=== PATIENT | male | born 1935 | race Caucasian/White ===

== ENCOUNTER 2021-04-27 08:35 | Inpatient (IN) | payer MEDICARE, SELFPAY ==
[2021-04-27] VITALS (9 sets, daily range): BP systolic 142–173; BP diastolic 67–90; PULSE 62–112; RESP 18–34; TEMP 36.3–36.8; O2SAT 86–99; BMI 31.9
--- NOTE | ~2021-04-27 | US_ITS ---
EXAMINATION: US arterial ankle brachial ind EXAM DATE: 04/28/2021 12:21 INDICATION: decreased pulses in feet . TECHNIQUE: Segmental pressures and plethysmographic and Doppler waveforms of the brachial and lower e xtremity arteries were obtained. There is no prior study for comparison. FINDINGS: Right and left brachial artery pressures of 139 mm Hg and 132 mm Hg, respectively, are concordant (no rmal difference <= 30 mmHg). RIGHT LEG: The ankle-brachial index (ARIELLA) is 1.03 (normal >= 0.9-1). The great toe-brachial index (TBI) is 0.79 (normal >= 0.65). The lower extremity ratios, segmental pressure gradients as follows; Dorsalis pedis: 0.76 (106 mmHg). Posterior tibial: 1.03 (143 mmHg). (Normal gradients <= 20-30 mmHg between adjacent levels on the same leg or the same levels on the two legs). Arterial waveforms are biphasic proximally, monophasic from popliteal down. LEFT LEG: The ankle-brachial index (ARIELLA) is 0.64 (normal >= 0.9-1). The great toe-brachial index (TBI) is 0.59 (normal >= 0.65). The lower extremity ratios, segmental pressure gradients as follows; Dorsalis pedis: Could not obtain ( mmHg). Posterior tibial: 0.64 (89 mmHg). (Normal gradients <= 20-30 mmHg between adjacent levels on the same leg or the same levels on the two legs). Arterial waveforms are biphasic proximally, monophasic from popliteal down. IMPRESSION: 1. Right ankle-brachial index 1.03, normal. 2. Left ankle-brachial index 0.64, mild to moderately decreased. 3. Segmental pressures as above. Reviewed, dictated and finalized at location A. MACOLOGY TEACHER
--- NOTE | ~2021-04-27 | XR_ITS ---
EXAMINATION: XR chest 2V DATE: 04/27/2021 09:26 INDICATION: Congestive heart failure and hypoxia TECHNIQUE: AP and lateral views of the chest are obtained. COMPARISON: 01/09/2017 FINDINGS: Cardiomegaly is noted. There is a mild diffuse interstitial pattern. Small pleural effusion s are present. There are minimal airspace opacities of the lung bases. There is no pneumothorax. Medi an sternotomy wires and mediastinal surgical clips are seen, likely from prior coronary artery bypass grafting. A dual-lead cardiac pacemaker of the left chest wall ends with leads in expected locations . There is moderate thoracic spondylosis. IMPRESSION: 1. Cardiomegaly with mild pulmonary edema. 2. Bibasilar airspace opacities, likely atelectasis. Reviewed, dictated and finalized at location A. CTOR ERP
--- NOTE | ~2021-04-27 | US_ITS ---
EXAMINATION: US venous doppler [facility] DATE: 04/28/2021 08:37 INDICATION: Bilateral lower limb edema TECHNIQUE: Guzman scale images without and with compression and Doppler images of the bilateral lower e xtremity veins were obtained. COMPARISON: None FINDINGS: The right common femoral vein, profunda femoral vein, femoral vein, popliteal vein, peroneal trunk, p osterior tibial veins, and greater saphenous vein are patent. The left common femoral vein, profunda femoral vein, femoral vein, popliteal vein, peroneal trunk, po sterior tibial veins, and greater saphenous vein are patent. IMPRESSION: 1. Patent bilateral lower extremity veins. No evidence of deep venous thrombosis. Reviewed, dictated and finalized at location A. ER DEVELOPER IMPRESSION: 1. Patent bilateral lower extremity veins. No evidence of deep venous thrombosi s.
--- NOTE | 2021-04-27 08:59 | ECG_ITS ---
Measurements Intervals [place] Rate: 62 P: 118 OR: 271 QRS: -88 QRSD: 121 T: 75 QT: 465 QTc: 473 Interpretive Statements ELECTRONIC ATRIAL PACEMAKER VENTRICULAR PREMATURE COMPLEX RIGHT BUNDLE BRANCH BLOCK LEFT ANTERIOR FASCICULAR BLOCK POOR R WAVE PROGRESSION, CONSIDER ANTERIOR INFARCT INFERIOR INFARCT, AGE INDETERMINATE BASELINE ARTIFACT- I, II, III ,AVR, AVL ,AVF, V3-V6 ABNORMAL ECG Electronically Signed On 04-27-2021 16:26:46 [employer] SPRINKLER by Pedro Flynn D.O.
--- NOTE | 2021-04-27 08:59 | PC.NURSE ---
Pt states he hasnt taken his lasix in 2 days
[2021-04-27 09:10] LABS: Basophils Absolute Auto 0.1 K/mm3 (0.0-0.1); Basophils Percent Auto 0.9 % (0.2-1.2); Eosinophils Absolute Auto 0.1 K/mm3 (0-0.3); Hematocrit 46.6 % (42.0-52.0); Hemoglobin 14.7 g/dL (14.0-18.0); Immature Granulocyte Absolute 0.03 K/mm3 (0.00-0.031); Immature Granulocyte Percent A 0.4 % (0-0.5); Lymphocytes Absolute Auto 1.45 K/mm3 (0.9-3.2); Lymphocytes Percent Auto 18.1 % (18.3-44.2); Mean Corpuscular HGB Conc 31.5 g/dl (32-36); Mean Corpuscular Hemoglobin 30.4 pg (26-34); Mean Corpuscular Volume 96.3 fl (80-100); Mean Platelet Volume 10.3 fl (7.4-10.4); Monocytes Absolute Auto 0.6 K/mm3 (0.1-0.6); Monocytes Percent Auto 7.9 % (2.6-8.5); Neutrophils Absolute Auto 5.8 K/mm3 (1.3-6.7); Neutrophils Percent Auto 71.7 % (45.5-73.1); Platelet Count Result 219 k/mm3 (150-375); Red Blood Count 4.84 M/mm3 (4.6-6.20); Red Cell Distribution Width 14.2 % (11.5-14.5)
[2021-04-27 09:23] LABS: Alanine Aminotransferase 22 U/L (4-50); Albumin Level 4.1 g/dL (3.5-5.1); Alkaline Phosphatase 81 U/L (38-126); Anion Gap 8 mmol/L (8-16); Aspartate Amino Transferase 23 U/L (17-59); Bilirubin,Total 1.1 mg/dL (0.2-1.3); Blood Urea Nitrogen 20 mg/dL (9-20); Calcium 9.1 mg/dL (8.4-10.2); Carbon Dioxide 35 mmol/L (22-30); Chloride 97 mmol/L (98-107); Estimated CRCL calculation 76 ml/min; Estimated Glomerular Filt Rate > 60; Glucose 164 mg/dL (65-110); Potassium 3.6 mmol/L (3.4-5.0); Sodium 140 mmol/L (137-145)
[2021-04-27 09:27] LABS: INR 1.1; Prothrombin Time 14.3 Seconds (11.1-14.7)
[2021-04-27 09:28] LABS: Partial Thromboplastin Time 28.3 SECONDS (22.3-36.8)
[2021-04-27 09:35] LABS: NT Pro B Type Natriuretic Pept 2930 pg/mL (5-100); Troponin I < 0.012 ng/mL (0.000-0.034)
--- NOTE | 2021-04-27 10:09 | ED.SOB ---
HPI - SOB/Dyspnea General Chief Complaint: Shortness of Breath/Dyspnea Stated Complaint: sob, high blood sugar Time Seen by Provider: 04/27/21 09:02 History of Present Illness HPI Narrative: Patient is an 86-year-old male who presents ER with shortness of breath. Worse with any type of exertion. He reports increased edema to his lower extremities. No fevers or chills or sweats. No productive cough. Patient has history of CHF. Reports he has not been compliant with his medication over the last few days which may have worsened his symptoms. 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 Patient endorses some mild central chest discomfort that improved with oxygen administration. Related Data Home Medications Medication Instructions Recorded Confirmed aspirin 81 mg tablet,delayed 81 mg PO DAILY 05/08/20 release carvedilol 6.25 mg tablet 6.25 mg PO Q12H 05/08/20 furosemide 40 mg tablet 40 mg PO QAM 05/08/20 gabapentin 600 mg tablet 600 mg PO BID 05/08/20 metformin 500 mg tablet 500 mg PO BID 05/08/20 Allergies Allergy/AdvReac Type Severity Reaction Status Date / Time levofloxacin Allergy Mild unknown Verified 05/08/20 13:43 Review of Systems Review of Systems: All systems reviewed & are unremarkable except as noted in HPI and below Constitutional: Constitutional: Denies chills, Denies fever(s) and Reports weakness ENT: Denies nasal congestion and Denies sore throat Cardiovascular: Cardiovascular: Reports chest pain, Denies rapid heart rate and Denies radiating jaw, neck or arm pain Respiratory: Respiratory: Denies cough, Reports dyspnea and Denies wheezing Gastrointestinal: Gastrointestinal: Denies nausea and Denies vomiting [facility] Past Medical History Medical History (Updated 04/27/21 @ 13:02 by Stevan Guillory MD) CHF (congestive heart failure) COPD (chronic obstructive pulmonary disease) CVA (cerebral vascular accident) Diabetes Hypertension Surgical History Surgical History (Updated 04/27/21 @ 10:14 by Stevan Guillory MD) Hx of CABG Pacemaker Social History Social History (Updated 05/08/20 @ 13:44 by Genesis Hernandez CMA) Smoking status: Former smoker Second hand tobacco smoke exposure: No Smoking end date: 05/19/69 Alcohol intake: never Substance use: never Substance use type: does not use Exam Narrative: GENERAL: Chronically ill-appearing, well-nourished, and in no acute distress. HEAD: Normocephalic, atraumatic. EYES: PERRL and EOMI. ENT: Mucous membranes moist. CHEST: Clear to auscultation with mild crackles right base. No respiratory distress. HEART: Regular rate and rhythm. Normal peripheral pulses. ABDOMEN: Soft, nontender, nondistended. EXTREMITIES: Normal range of motion. 2+ edema. SKIN: Warm, dry, no rash. NEURO: Alert and oriented x3. PSYCH: Normal mood and affect. Course Vital Signs Vital signs: Vital Signs Temperature 98.3 F 04/27/21 08:48 Pulse Rate 112 H 04/27/21 08:48 Respiratory Rate 34 H 04/27/21 08:48 Blood Pressure 172/67 H 04/27/21 08:48 Pulse Oximetry 86 L 04/27/21 08:48 Temperature 98.3 F 04/27/21 08:48 Pulse Rate 62 04/27/21 11:12 Respiratory Rate 18 04/27/21 11:12 Blood Pressure 143/73 H 04/27/21 11:12 Pulse Oximetry 92 04/27/21 11:12 MDM - SOB/Dyspnea Lab Data Result diagrams: 04/27/21 09:01 04/27/21 09:02 Labs: Lab Results 04/27/21 04/27/21 04/27/21 Range/Units 09:01 09:01 09:02 WBC 8.0 (4.5-10.0) K/mm3 RBC 4.84 (4.6-6.20) M/mm3 Hgb 14.7 (14.0-18.0) g/dL Hct 46.6 (42.0-52.0) % MCV 96.3 (80-100) fl MCH 30.4 (26-34) pg MCHC 31.5 L (32-36) g/dl RDW 14.2 (11.5-14.5) % Plt Count 219 (150-375) k/mm3 MPV 10.3 (7.4-10.4) fl Immature Gran % (Auto) 0.4 (0-0.5) % Neut % (Auto) 71.7 (45.5-73.1) % Lymph % (Auto) 18.1 L (18.3-44.2) % [place] % (Auto) 7.9 (2.6-8.5) % Eos % (Aut
--- NOTE | 2021-04-27 15:15 | PM.IMHP ---
H&P: HPI History of Present Illness Date/Time: 04/27/21 15:15 Chief Complaint: Shortness of breath. Narrative: This is a very pleasant 86-year-old gentleman with coronary artery disease, diastolic congestive heart failure, COPD, diabetes, and several other comorbidities who presented to the emergency department earlier today for evaluation of shortness. Over the past 1 week or so he has developed increasing lower extremity edema as well as dyspnea on lesser and lesser exertion. He also endorses orthopnea and in fact he did not sleep well the last 2 nights due to shortness of breath. This morning he was feeling quite short of breath and at the same time felt discomfort in the midsternal chest region that resolved once he was started on oxygen. With further questioning he does admit that he has may be not been completely compliant with his medication over the last several days due to much activity in the home as the electricity is being rewired. On arrival to the emergency department his SpO2 was 86% on room air and he is now on L nasal cannula with improvement into the mid to upper 90s. Chest x-ray shows mild pulmonary edema and he is being admitted in this setting for diuresis. At the time my evaluation he feels much better after having received Lasix. He denies fever, chills, sweats, cold and flu symptoms, cough, sick contacts, pleuritic pain, palpitations, nausea, vomiting, and diarrhea. Review of Systems Review of Systems: Twelve systems were reviewed. No sick contacts. He is vaccinated against COVID. Denies dysphagia and concerns for aspiration. No syncope or near syncope. No history of venous thromboembolism. Recently he has been having difficulties with dribbling while voiding though he denies dysuria and feelings of incomplete bladder evacuation. Except as documented, all other systems were reviewed and are negative. [facility] Past Medical History Medical History (Updated 04/27/21 @ 23:55 by Leigha Linares PA-C) Benign prostatic hyperplasia Cerebrovascular accident No residual deficit. Chronic obstructive pulmonary disease Coronary artery disease Status post five-vessel bypass. Diabetic peripheral neuropathy Diastolic congestive heart failure Gastroesophageal reflux disease History of peptic ulcer Hypertension Osteoarthritis Paroxysmal atrial flutter Peripheral vascular disease Sick sinus syndrome Status post permanent pacemaker insertion, Biotronik. Type 2 diabetes mellitus Surgical History Surgical History (Updated 04/27/21 @ 23:50 by Leigha Linares PA-C) History of bilateral cataract extraction History of five vessel coronary artery bypass (2007) History of inguinal hernia repair History of permanent cardiac pacemaker placement Family History Family History (Updated 04/27/21 @ 23:51 by Leigha Linares PA-C) Other Congestive heart failure Diabetes mellitus Social History Social History (Updated 04/27/21 @ 23:52 by Leigha Linares PA-C) Social History: Surrogate decision maker: Ewa Aguilar, . Code status: Full code. Smoking packs per day: 1 Smoking cigarettes per day: 20.0 Years smoked: 40 Smoking pack-years: 40.00 Smoking status: Former smoker Second hand tobacco smoke exposure: No Smoking end date: 05/19/69 Alcohol intake: never Substance use: never Substance use type: does not use Additional living arrangements comments: The patient lives with his in [place]. Additional occupation/education comments: Retired. Meds Home Medications and Allergies Home Medications Medication Instructions Recorded Confirmed Type aspirin 81 mg tablet,delayed 81 mg PO DAILY 05/08/20 04/27/21 History release carvedilol 6.25 mg tablet 6.25 mg PO Q12H 05/08/20 04/27/21 History furosemide 40 mg tablet 40 mg PO QAM 05/08/20 04/27/21 History gabapentin 600 mg tablet 600 mg PO BID 05/08/20 04/27/21 History metformin 500 mg tablet 500 mg PO BID 05/08/20
--- NOTE | 2021-04-27 17:49 | ADMGEN ---
This patient, Stephanie Aguilar Jr., was admitted to IMU Room 205-01 at 1735. Patient/family oriented to hospital policies and general routines including ID bracelet, bed and alarms, visiting hours, pain management, procedures, bathroom and other care routines, personal items, smoking policy, room service/diet, and visiting hours. Information on how to activate the Rapid Response Team has been discussed. Patient/Family are encouraged to report perceived risks to care and to ask questions if they do not understand what they are told or what they should do.
[2021-04-27] MEDS: FUROSEMIDE INJ 40 MG/4 ML VIAL IV PUSH (20:59)
[2021-04-28] VITALS (14 sets, daily range): BP systolic 106–158; BP diastolic 56–68; PULSE 66–94; RESP 16–24; TEMP 36.2–37.2; O2SAT 91–97
[2021-04-28 05:07] LABS: Hematocrit 46.5 % (42.0-52.0); Hemoglobin 14.3 g/dL (14.0-18.0); Mean Corpuscular HGB Conc 30.8 g/dl (32-36); Mean Corpuscular Hemoglobin 30.8 pg (26-34); Mean Platelet Volume 10.5 fl (7.4-10.4); Platelet Count Result 197 k/mm3 (150-375); Red Blood Count 4.65 M/mm3 (4.6-6.20); Red Cell Distribution Width 14.2 % (11.5-14.5); White Blood Count 8.1 K/mm3 (4.5-10.0)
[2021-04-28 05:20] LABS: Alanine Aminotransferase 18 U/L (4-50); Albumin Level 3.6 g/dL (3.5-5.1); Alkaline Phosphatase 70 U/L (38-126); Anion Gap 7 mmol/L (8-16); Aspartate Amino Transferase 22 U/L (17-59); Bilirubin,Total 1.1 mg/dL (0.2-1.3); Blood Urea Nitrogen 19 mg/dL (9-20); Calcium 8.5 mg/dL (8.4-10.2); Carbon Dioxide 38 mmol/L (22-30); Chloride 95 mmol/L (98-107); Cholesterol 116 mg/dL (0-200); Estimated CRCL calculation 77 ml/min; Estimated Glomerular Filt Rate > 60; Glucose 119 mg/dL (65-110); HDL Direct 27 mg/dL; Magnesium 1.8 mg/dL (1.6-2.3); Potassium 3.2 mmol/L (3.4-5.0); Sodium 140 mmol/L (137-145); Triglycerides 95 mg/dL (<150)
[2021-04-28 05:31] LABS: LDL Cholesterol Direct 69 mg/dL
[2021-04-28 06:07] LABS: Thyroid Stimulating Hormone Reflex 0.463 uIU/mL (0.465-4.68)
[2021-04-28 06:37] LABS: Hemoglobin A1C 7.7 % (<5.7)
[2021-04-28 07:11] LABS: Free T4 Free Thyroxine Reflex 1.37 ng/dL (0.78-2.19)
--- NOTE | 2021-04-28 09:24 | PM.IMPN ---
Progress Note: A&P Assessment and Plan (1) Acute exacerbation of congestive heart failure: Code(s): I50.9 - Heart failure, unspecified Status: Acute Assessment and Plan: Improving Continue diuresis with KCL PO (2) Acute respiratory failure with hypoxia: Code(s): J96.01 - Acute respiratory failure with hypoxia Status: Acute Assessment and Plan: Due to CHF Wean oxygen as possible (3) Hypertension: Code(s): I10 - Essential (primary) hypertension Status: Chronic Assessment and Plan: Improving with diuresis (4) Peripheral vascular disease: Code(s): I73.9 - Peripheral vascular disease, unspecified Status: Acute Assessment and Plan: No acute issues. (5) Chronic obstructive pulmonary disease: Code(s): J44.9 - Chronic obstructive pulmonary disease, unspecified Status: Acute Assessment and Plan: Clinically stable (6) Type 2 diabetes mellitus: Code(s): E11.9 - Type 2 diabetes mellitus without complications Status: Acute Assessment and Plan: Hold metformin. SSI (7) Coronary artery disease: Code(s): I25.10 - Atherosclerotic heart disease of [place] coronary artery without angina pectoris Status: Acute Assessment and Plan: No ACS (8) Benign prostatic hyperplasia: Code(s): N40.0 - Benign prostatic hyperplasia without lower urinary tract symptoms Status: Acute Assessment and Plan: Bladder scan negative Subjective Date/time seen: 04/28/21 09:24 Interval history: 04/28 visit: sob with conversation. denied pain. Review of Systems Review of Systems: frequent urination swollen ankles pulido All systems reviewed & are unremarkable except as noted in HPI and below Exam Narrative: General: Well-developed elderly male sitting up in bed in no distress. Weight: 98.1 kg. BMI: 31.9. HEENT: PERRL, EOMI. Sclerae anicteric. Oral mucosa moist. Several missing teeth. Neck: Supple. No significant JVD. Respiratory: Respirations are even and nonlabored. He is currently on 4 L nasal cannula. Lung sounds are diminished at the bases with faint crackles Cardiovascular: IRREGULAR, NL S1-S2. Gastrointestinal: Abdomen is slightly firm and protuberant, possible bladder distension. He is not tender to palpation. Positive bowel sounds. Skin: Warm and dry. No rash or lesions on limited exam. Extremities: No cyanosis or clubbing. 1+ ANKLE EDEMA BILATERALLY Neurological: Alert. Cranial nerves 2-12 are grossly intact to inspection Psychiatric: Pleasant and cooperative with normal mood and affect. Judgment and insight intact. Objective Data Vital Signs Vital Signs: Vital Signs - 24 hr 04/27/21 11:12 04/27/21 16:53 04/27/21 17:37 Temperature 97.3 F L Pulse Rate 62 78 69 Respiratory Rate 18 18 18 Blood Pressure 143/73 H 142/68 H 158/78 H Pulse Oximetry 92 99 95 04/27/21 18:00 04/27/21 20:00 04/27/21 20:45 Temperature 97.8 F Pulse Rate 80 81 86 Respiratory Rate 19 Blood Pressure 161/70 H Pulse Oximetry 94 04/27/21 22:00 04/28/21 00:00 04/28/21 02:00 Temperature 97.9 F Pulse Rate 87 80 94 Respiratory Rate 20 Blood Pressure 107/59 L Pulse Oximetry 93 04/28/21 04:00 Temperature 98.7 F Pulse Rate 76 Respiratory Rate 18 Blood Pressure 158/64 H Pulse Oximetry 95 Intake/Output Intake/Output: Intake & Output 04/25/21 04/26/21 04/27/21 04/28/21 23:59 23:59 23:59 23:59 Intake Total 100 150 Output Total 400 Balance 100 -250 Meds/Results Medications: Active Medications Generic Name Dose Route Start Last Admin Trade Name Freq PRN Reason Stop Dose Admin Acetaminophen 650 mg 04/27/21 11:34 Acetaminophen 325 Mg Tablet PO Q4H PRN Mild Pain (1-3) or Fever Albuterol 2 puff 04/27/21 23:58 Albuterol Sulfate (*Sp) Aerosol 1 Puff INHALATION QIDRT PRN Shortness Of Breath As
[2021-04-28] MEDS: POTASSIUM CHLORIDE 20 MEQ TABLET 40 MEQ PO ×2 (10:24→13:10)
[2021-04-28] MEDS: ENOXAPARIN 40 MG/0.4 ML SYRINGE SUB-Q (10:25)
[2021-04-28] MEDS: ASPIRIN 81 MG ENTERIC TABLET PO (10:25)
[2021-04-28] MEDS: FUROSEMIDE INJ 40 MG/4 ML VIAL IV PUSH ×2 (10:26→21:38)
[2021-04-28] MEDS: GABAPENTIN 300 MG CAPSULE 600 MG PO ×2 (10:26→21:38)
[2021-04-28] MEDS: carvediloL 6.25 MG TABLET PO ×2 (10:27→21:38)
[2021-04-28 10:48] LABS: Glucose Point of Care 195 mg/dl (65-105)
[2021-04-28 12:01] LABS: Total Triiodothyronine (T3) 1.18 NG/ML (0.97-1.69)
[2021-04-28 13:00] LABS: Glucose Point of Care 147 mg/dl (65-105)
[2021-04-28 17:02] LABS: Glucose Point of Care 155 mg/dl (65-105)
[2021-04-28 20:49] LABS: Glucose Point of Care 143 mg/dl (65-105)
[2021-04-28 20:51] LABS: EDCOVIDSCREEN Negative (Negative)
[2021-04-29] VITALS (17 sets, daily range): BP systolic 110–133; BP diastolic 47–69; PULSE 64–84; RESP 20; TEMP 36.1–36.8; O2SAT 90–98
[2021-04-29 08:47] LABS: Glucose Point of Care 123 mg/dl (65-105)
[2021-04-29] MEDS: FUROSEMIDE INJ 40 MG/4 ML VIAL IV PUSH ×2 (09:10→21:51)
[2021-04-29] MEDS: ENOXAPARIN 40 MG/0.4 ML SYRINGE SUB-Q (09:10)
[2021-04-29] MEDS: carvediloL 6.25 MG TABLET PO ×2 (09:11→21:51)
[2021-04-29] MEDS: ASPIRIN 81 MG ENTERIC TABLET PO (09:11)
[2021-04-29] MEDS: GABAPENTIN 300 MG CAPSULE 600 MG PO ×2 (09:11→21:51)
[2021-04-29 09:15] LABS: Anion Gap 6 mmol/L (8-16); Blood Urea Nitrogen 23 mg/dL (9-20); Calcium 8.7 mg/dL (8.4-10.2); Carbon Dioxide 38 mmol/L (22-30); Chloride 93 mmol/L (98-107); Estimated CRCL calculation 77 ml/min; Estimated Glomerular Filt Rate > 60; Glucose 135 mg/dL (65-110); Potassium 3.8 mmol/L (3.4-5.0); Sodium 137 mmol/L (137-145)
--- NOTE | 2021-04-29 10:32 | PM.IMPN ---
Progress Note: A&P Assessment and Plan (1) Acute exacerbation of congestive heart failure: Code(s): I50.9 - Heart failure, unspecified Status: Acute Assessment and Plan: Improving Continue diuresis (2) Acute respiratory failure with hypoxia: Code(s): J96.01 - Acute respiratory failure with hypoxia Status: Acute Assessment and Plan: Due to CHF Wean oxygen as possible (3) Hypertension: Code(s): I10 - Essential (primary) hypertension Status: Chronic Assessment and Plan: Improved with diuresis 04/29 110/47 (4) Peripheral vascular disease: Code(s): I73.9 - Peripheral vascular disease, unspecified Status: Acute Assessment and Plan: No acute issues. (5) Chronic obstructive pulmonary disease: Code(s): J44.9 - Chronic obstructive pulmonary disease, unspecified Status: Acute Assessment and Plan: Clinically stable (6) Type 2 diabetes mellitus: Code(s): E11.9 - Type 2 diabetes mellitus without complications Status: Acute Assessment and Plan: Hold metformin. SSI 04/29 BS reviewed and stable (7) Coronary artery disease: Code(s): I25.10 - Atherosclerotic heart disease of [place] coronary artery without angina pectoris Status: Acute Assessment and Plan: No ACS (8) Benign prostatic hyperplasia: Code(s): N40.0 - Benign prostatic hyperplasia without lower urinary tract symptoms Status: Acute Assessment and Plan: Bladder scan negative Subjective Date/time seen: 04/29/21 10:32 Interval history: 04/29 visit: Less sob with conversation. Tired. Review of Systems Review of Systems: All systems reviewed & are unremarkable except as noted in HPI and below Exam Narrative: General: Well-developed elderly male sitting up in bed in no distress. Weight: 98.1 kg. BMI: 31.9. HEENT: PERRL, EOMI. Sclerae anicteric. Oral mucosa moist. Several missing teeth. Neck: Supple. No significant JVD. Respiratory: Respirations are even and nonlabored. He is currently on 4 L nasal cannula. Lung sounds are diminished at the bases with faint crackles Cardiovascular: IRREGULAR, NL S1-S2. Gastrointestinal: Abdomen is slightly firm and protuberant, possible bladder distension. He is not tender to palpation. Positive bowel sounds. Skin: Warm and dry. No rash or lesions on limited exam. Extremities: No cyanosis or clubbing. 1+ ANKLE EDEMA BILATERALLY Neurological: Alert. Cranial nerves 2-12 are grossly intact to inspection Psychiatric: Pleasant and cooperative with normal mood and affect. Judgment and insight intact. Objective Data Vital Signs Vital Signs: Vital Signs - 24 hr 04/28/21 12:00 04/28/21 14:00 04/28/21 16:00 Temperature 97.7 F 97.6 F Pulse Rate 79 66 68 Respiratory Rate 24 H 18 Blood Pressure 112/62 109/57 L Pulse Oximetry 93 91 04/28/21 18:00 04/28/21 20:00 04/28/21 21:38 Temperature 97.2 F L Pulse Rate 84 78 81 Respiratory Rate 20 Blood Pressure 106/56 L Pulse Oximetry 94 04/28/21 22:00 04/28/21 23:52 04/29/21 00:00 Temperature 97.4 F L Pulse Rate 85 74 75 Respiratory Rate 20 Blood Pressure 126/68 Pulse Oximetry 97 97 04/29/21 02:00 04/29/21 03:50 04/29/21 03:57 Temperature 97.8 F Pulse Rate 66 74 Respiratory Rate 20 Blood Pressure 112/59 L Pulse Oximetry 97 97 04/29/21 04:00 04/29/21 06:00 04/29/21 08:58 Temperature 97.0 F L Pulse Rate 71 79 72 Respiratory Rate 20 Blood Pressure 129/58 L Pulse Oximetry 90 04/29/21 09:11 Temperature Pulse Rate 84 Respiratory Rate Blood Pressure Pulse Oximetry Intake/Output Intake/Output: Intake & Output 04/26/21 04/27/21 04/28/21 04/29/21 23:59 23:59 23:59 23:59 Intake Total 100 1315 Output Total 400 1050 Balance 100 915 -1050 Meds/Results Medications: Active Medications Generic Name Dose Route Start Las
[2021-04-29 12:32] LABS: Glucose Point of Care 227 mg/dl (65-105)
[2021-04-29] MEDS: INSULIN ASPART (*BKC) 100 UNITS/ML SUB-Q (13:00)
[2021-04-29 17:52] LABS: Glucose Point of Care 123 mg/dl (65-105)
[2021-04-29 20:27] LABS: Glucose Point of Care 140 mg/dl (65-105)
[2021-04-30] VITALS (7 sets, daily range): BP systolic 90–110; BP diastolic 43–45; PULSE 61–76; RESP 16–20; TEMP 36.2–36.5; O2SAT 95–98
[2021-04-30 05:57] LABS: Anion Gap 6 mmol/L (8-16); Blood Urea Nitrogen 24 mg/dL (9-20); Calcium 8.4 mg/dL (8.4-10.2); Carbon Dioxide 38 mmol/L (22-30); Chloride 90 mmol/L (98-107); Estimated CRCL calculation 77 ml/min; Estimated Glomerular Filt Rate > 60; Glucose 131 mg/dL (65-110); Potassium 3.8 mmol/L (3.4-5.0); Sodium 134 mmol/L (137-145)
[2021-04-30 08:44] LABS: Glucose Point of Care 128 mg/dl (65-105)
[2021-04-30 09:16] LABS: Alanine Aminotransferase 14 U/L (4-50); Albumin Level 3.3 g/dL (3.5-5.1); Alkaline Phosphatase 59 U/L (38-126); Anion Gap 7 mmol/L (8-16); Aspartate Amino Transferase 26 U/L (17-59); Bilirubin,Total 0.9 mg/dL (0.2-1.3); Blood Urea Nitrogen 25 mg/dL (9-20); Calcium 8.5 mg/dL (8.4-10.2); Carbon Dioxide 37 mmol/L (22-30); Chloride 92 mmol/L (98-107); Estimated CRCL calculation 68 ml/min; Estimated Glomerular Filt Rate > 60; Glucose 133 mg/dL (65-110); Potassium 3.8 mmol/L (3.4-5.0); Sodium 136 mmol/L (137-145)
[2021-04-30] MEDS: ASPIRIN 81 MG ENTERIC TABLET PO (09:46)
[2021-04-30] MEDS: carvediloL 6.25 MG TABLET PO ×2 (09:46→20:10)
[2021-04-30] MEDS: ENOXAPARIN 40 MG/0.4 ML SYRINGE SUB-Q (09:48)
[2021-04-30] MEDS: GABAPENTIN 300 MG CAPSULE 600 MG PO ×2 (09:48→20:10)
[2021-04-30 10:05] LABS: Basophils Absolute Auto 0.1 K/mm3 (0.0-0.1); Basophils Percent Auto 1.2 % (0.2-1.2); Eosinophils Absolute Auto 0.1 K/mm3 (0-0.3); Eosinophils Percent Auto 1.9 % (0-4.4); Hematocrit 45.9 % (42.0-52.0); Hemoglobin 13.9 g/dL (14.0-18.0); Immature Granulocyte Absolute 0.01 K/mm3 (0.00-0.031); Immature Granulocyte Percent A 0.1 % (0-0.5); Lymphocytes Absolute Auto 2.09 K/mm3 (0.9-3.2); Mean Corpuscular HGB Conc 30.3 g/dl (32-36); Mean Corpuscular Hemoglobin 30.3 pg (26-34); Mean Corpuscular Volume 100.2 fl (80-100); Mean Platelet Volume 10.9 fl (7.4-10.4); Monocytes Absolute Auto 0.7 K/mm3 (0.1-0.6); Monocytes Percent Auto 10.1 % (2.6-8.5); Neutrophils Absolute Auto 3.8 K/mm3 (1.3-6.7); Neutrophils Percent Auto 55.7 % (45.5-73.1); Platelet Count Result 203 k/mm3 (150-375); Red Blood Count 4.58 M/mm3 (4.6-6.20); Red Cell Distribution Width 13.8 % (11.5-14.5); White Blood Count 6.7 K/mm3 (4.5-10.0)
[2021-04-30] MEDS: FUROSEMIDE INJ 40 MG/4 ML VIAL IV PUSH (11:13)
[2021-04-30 13:14] LABS: Glucose Point of Care 177 mg/dl (65-105)
--- NOTE | 2021-04-30 14:00 | PM.IMPN ---
Progress Note: A&P Assessment and Plan (1) Acute exacerbation of congestive heart failure: Code(s): I50.9 - Heart failure, unspecified Status: Acute Assessment and Plan: Improving Continue diuresis Change IV lasix to PO Probably can DC home tomorrow (2) Acute respiratory failure with hypoxia: Code(s): J96.01 - Acute respiratory failure with hypoxia Status: Acute Assessment and Plan: Due to CHF Wean oxygen as possible O2 off at this time Continue to trend saturations (3) Hypertension: Code(s): I10 - Essential (primary) hypertension Status: Chronic Assessment and Plan: Improved with diuresis 04/30 90/45 Seems low at this time Continue trend (4) Peripheral vascular disease: Code(s): I73.9 - Peripheral vascular disease, unspecified Status: Acute Assessment and Plan: No acute issues. (5) Chronic obstructive pulmonary disease: Code(s): J44.9 - Chronic obstructive pulmonary disease, unspecified Status: Acute Assessment and Plan: Clinically stable Supplemental oxygen if needed (6) Type 2 diabetes mellitus: Code(s): E11.9 - Type 2 diabetes mellitus without complications Status: Acute Assessment and Plan: Hold metformin. SSI 04/30 BS reviewed and stable (7) Coronary artery disease: Code(s): I25.10 - Atherosclerotic heart disease of [place] coronary artery without angina pectoris Status: Acute Assessment and Plan: No ACS (8) Benign prostatic hyperplasia: Code(s): N40.0 - Benign prostatic hyperplasia without lower urinary tract symptoms Status: Acute Assessment and Plan: Bladder scan negative Time Spent With Patient Time with patient: 25 - 35 minutes Subjective Date/time seen: 04/30/21 14:00 Interval history: Date/Time: 04/27/21 15:15 Narrative: This is a very pleasant 86-year-old gentleman with coronary artery disease, diastolic congestive heart failure, COPD, diabetes, and several other comorbidities who presented to the emergency department earlier today for evaluation of shortness. Over the past 1 week or so he has developed increasing lower extremity edema as well as dyspnea on lesser and lesser exertion. He also endorses orthopnea and in fact he did not sleep well the last 2 nights due to shortness of breath. This morning he was feeling quite short of breath and at the same time felt discomfort in the midsternal chest region that resolved once he was started on oxygen. With further questioning he does admit that he has may be not been completely compliant with his medication over the last several days due to much activity in the home as the electricity is being rewired. On arrival to the emergency department his SpO2 was 86% on room air and he is now on L nasal cannula with improvement into the mid to upper 90s. Chest x-ray shows mild pulmonary edema and he is being admitted in this setting for diuresis. At the time my evaluation he feels much better after having received Lasix. He denies fever, chills, sweats, cold and flu symptoms, cough, sick contacts, pleuritic pain, palpitations, nausea, vomiting, and diarrhea. Date/Time 04/30/21 14:00 Patient is sitting in the chair talking to his electric organ checker. He stated that he is feeling ok. He does have a cough. He is able to walk and is eating as much as he can. He denies SOB and O2 at home. He is able to go to the bathroom, without feeling short of breath. He denies chest pain. He is ready to be moved out of the IMU. Will change him to PO lasix at this time. Review of Systems Review of Systems: All systems reviewed & are unremarkable except as noted in HPI and below Exam Const: General: cooperative, healthy appearing, no acute distress, well developed, alert and awake Nutritional Appearance: well nourished Orientation/consciousness: oriented to person, oriented to
[2021-04-30 15:12] LABS: Glucose Point of Care 231 mg/dl (65-105)
[2021-04-30] MEDS: FUROSEMIDE 40 MG TABLET PO (17:12)
[2021-04-30 17:16] LABS: Glucose Point of Care 145 mg/dl (65-105)
[2021-04-30 20:40] LABS: Glucose Point of Care 140 mg/dl (65-105)
[2021-05-01] VITALS (7 sets, daily range): BP systolic 106–141; BP diastolic 46–70; PULSE 59–115; RESP 16–18; TEMP 36–36.7; O2SAT 90–95
[2021-05-01 05:18] LABS: Basophils Absolute Auto 0.1 K/mm3 (0.0-0.1); Basophils Percent Auto 1.1 % (0.2-1.2); Eosinophils Absolute Auto 0.1 K/mm3 (0-0.3); Eosinophils Percent Auto 1.7 % (0-4.4); Hemoglobin 13.5 g/dL (14.0-18.0); Immature Granulocyte Absolute 0.01 K/mm3 (0.00-0.031); Immature Granulocyte Percent A 0.1 % (0-0.5); Lymphocytes Absolute Auto 1.78 K/mm3 (0.9-3.2); Lymphocytes Percent Auto 25.5 % (18.3-44.2); Mean Corpuscular HGB Conc 30.7 g/dl (32-36); Mean Corpuscular Hemoglobin 30.1 pg (26-34); Mean Corpuscular Volume 98.2 fl (80-100); Mean Platelet Volume 10.7 fl (7.4-10.4); Monocytes Absolute Auto 0.7 K/mm3 (0.1-0.6); Monocytes Percent Auto 10.3 % (2.6-8.5); Neutrophils Absolute Auto 4.3 K/mm3 (1.3-6.7); Neutrophils Percent Auto 61.3 % (45.5-73.1); Platelet Count Result 206 k/mm3 (150-375); Red Blood Count 4.48 M/mm3 (4.6-6.20); Red Cell Distribution Width 13.9 % (11.5-14.5)
[2021-05-01 05:34] LABS: Alanine Aminotransferase 14 U/L (4-50); Albumin Level 3.4 g/dL (3.5-5.1); Alkaline Phosphatase 66 U/L (38-126); Anion Gap 4 mmol/L (8-16); Aspartate Amino Transferase 21 U/L (17-59); Bilirubin,Total 0.6 mg/dL (0.2-1.3); Blood Urea Nitrogen 26 mg/dL (9-20); Calcium 8.7 mg/dL (8.4-10.2); Carbon Dioxide 39 mmol/L (22-30); Chloride 91 mmol/L (98-107); Estimated CRCL calculation 68 ml/min; Estimated Glomerular Filt Rate > 60; Glucose 182 mg/dL (65-110); Magnesium 1.9 mg/dL (1.6-2.3); Potassium 3.5 mmol/L (3.4-5.0); Sodium 134 mmol/L (137-145)
--- NOTE | 2021-05-01 07:00 | PM.IMPN ---
Progress Note: A&P Assessment and Plan (1) Acute exacerbation of congestive heart failure: Code(s): I50.9 - Heart failure, unspecified Status: Acute Assessment and Plan: Improving Continue diuresis Change IV lasix to PO Still on oxygen. On room air now will probably need a home o2 eval (2) Acute respiratory failure with hypoxia: Code(s): J96.01 - Acute respiratory failure with hypoxia Status: Acute Assessment and Plan: Due to CHF Wean oxygen as possible O2 off at this time Continue to trend saturations (3) Hypertension: Code(s): I10 - Essential (primary) hypertension Status: Chronic Assessment and Plan: Improved with diuresis 119/70 currently stable and maintaining Continue trend (4) Peripheral vascular disease: Code(s): I73.9 - Peripheral vascular disease, unspecified Status: Acute Assessment and Plan: No acute issues. (5) Chronic obstructive pulmonary disease: Code(s): J44.9 - Chronic obstructive pulmonary disease, unspecified Status: Acute Assessment and Plan: Clinically stable Supplemental oxygen if needed Albuterol inhaler (6) Type 2 diabetes mellitus: Code(s): E11.9 - Type 2 diabetes mellitus without complications Status: Acute Assessment and Plan: Glucose 182 today Hold metformin. SSI 04/30 BS reviewed and stable (7) Coronary artery disease: Code(s): I25.10 - Atherosclerotic heart disease of [place] coronary artery without angina pectoris Status: Acute Assessment and Plan: No ACS (8) Benign prostatic hyperplasia: Code(s): N40.0 - Benign prostatic hyperplasia without lower urinary tract symptoms Status: Acute Assessment and Plan: Bladder scan negative Time Spent With Patient Time with patient: Greater than 35 minutes Subjective Date/time seen: 05/01/21 0700 Interval history: Date/Time: 04/27/21 15:15 Narrative: This is a very pleasant 86-year-old gentleman with coronary artery disease, diastolic congestive heart failure, COPD, diabetes, and several other comorbidities who presented to the emergency department earlier today for evaluation of shortness. Over the past 1 week or so he has developed increasing lower extremity edema as well as dyspnea on lesser and lesser exertion. He also endorses orthopnea and in fact he did not sleep well the last 2 nights due to shortness of breath. This morning he was feeling quite short of breath and at the same time felt discomfort in the midsternal chest region that resolved once he was started on oxygen. With further questioning he does admit that he has may be not been completely compliant with his medication over the last several days due to much activity in the home as the electricity is being rewired. On arrival to the emergency department his SpO2 was 86% on room air and he is now on L nasal cannula with improvement into the mid to upper 90s. Chest x-ray shows mild pulmonary edema and he is being admitted in this setting for diuresis. At the time my evaluation he feels much better after having received Lasix. He denies fever, chills, sweats, cold and flu symptoms, cough, sick contacts, pleuritic pain, palpitations, nausea, vomiting, and diarrhea. Date/Time 04/30/21 14:00 Patient is sitting in the chair talking to his master in chancery. He stated that he is feeling ok. He does have a cough. He is able to walk and is eating as much as he can. He denies SOB and O2 at home. He is able to go to the bathroom, without feeling short of breath. He denies chest pain. He is ready to be moved out of the IMU. Will change him to PO lasix at this time. Date/Time 05/01/21 0700 Patient is feeling better. He is on oxygen, when I ask him is on oxygen he just said he feels like it is hard to breathe whenever they take it off. He stated that it that is really his only problem he has ri
[2021-05-01] MEDS: ASPIRIN 81 MG ENTERIC TABLET PO (08:46)
[2021-05-01] MEDS: GABAPENTIN 300 MG CAPSULE 600 MG PO ×2 (08:46→20:41)
[2021-05-01] MEDS: ENOXAPARIN 40 MG/0.4 ML SYRINGE SUB-Q (08:46)
[2021-05-01] MEDS: carvediloL 6.25 MG TABLET PO ×2 (08:46→20:41)
[2021-05-01 08:51] LABS: Glucose Point of Care 151 mg/dl (65-105)
[2021-05-01] MEDS: FUROSEMIDE 40 MG TABLET PO ×2 (09:37→17:21)
--- NOTE | 2021-05-01 10:31 | PC.NURSE ---
patient transferred to room 332-1
--- NOTE | 2021-05-01 11:28 | PC.NURSE ---
This patient, Stephanie Aguilar Jr., was transferred to [facility] on 05/01/21 at 1035. Personal belongings sent with patient. Report given to Shweta CORMIER. Appropriate documentation sent with patient.
[2021-05-01] MEDS: INSULIN ASPART (*BKC) 100 UNITS/ML SUB-Q (12:40)
[2021-05-01 12:49] LABS: Glucose Point of Care 221 mg/dl (65-105)
[2021-05-01 16:28] LABS: Glucose Point of Care 179 mg/dl (65-105)
[2021-05-01 20:55] LABS: Glucose Point of Care 175 mg/dl (65-105)
[2021-05-02 06:00] VITALS: BP 137/51; PULSE 60; RESP 18; TEMP 36.8; O2SAT 93
[2021-05-02 08:20] LABS: Glucose Point of Care 172 mg/dl (65-105)
[2021-05-02 08:53] VITALS: PULSE 64
[2021-05-02] MEDS: FUROSEMIDE 40 MG TABLET PO (08:53)
[2021-05-02] MEDS: ASPIRIN 81 MG ENTERIC TABLET PO (08:53)
[2021-05-02] MEDS: carvediloL 6.25 MG TABLET PO (08:53)
[2021-05-02] MEDS: ENOXAPARIN 40 MG/0.4 ML SYRINGE SUB-Q (08:53)
[2021-05-02] MEDS: GABAPENTIN 300 MG CAPSULE 600 MG PO (08:53)
[2021-05-02 11:37] LABS: Glucose Point of Care 205 mg/dl (65-105)
[2021-05-02] MEDS: INSULIN ASPART (*BKC) 100 UNITS/ML SUB-Q (12:24)
--- NOTE | 2021-05-02 13:40 | PM.DS ---
DS: Admitting Diagnosis Discharge Date date of service 05/02/2021 at 1:40 p.m. Admitting Diagnosis CHF exacerbation DS: Discharge Diagnosis Discharge Diagnosis (1) Acute exacerbation of congestive heart failure: Code(s): I50.9 - Heart failure, unspecified Status: Acute Assessment and Plan: Improving Continue diuresis Change IV lasix to PO Still on oxygen. On room air now will probably need a home o2 eval (2) Acute respiratory failure with hypoxia: Code(s): J96.01 - Acute respiratory failure with hypoxia Status: Acute Assessment and Plan: Due to CHF Wean oxygen as possible O2 off at this time Continue to trend saturations (3) Hypertension: Code(s): I10 - Essential (primary) hypertension Status: Chronic Assessment and Plan: Improved with diuresis 119/70 currently stable and maintaining Continue trend (4) Peripheral vascular disease: Code(s): I73.9 - Peripheral vascular disease, unspecified Status: Acute Assessment and Plan: No acute issues. (5) Chronic obstructive pulmonary disease: Code(s): J44.9 - Chronic obstructive pulmonary disease, unspecified Status: Acute Assessment and Plan: Clinically stable Supplemental oxygen if needed Albuterol inhaler (6) Type 2 diabetes mellitus: Code(s): E11.9 - Type 2 diabetes mellitus without complications Status: Acute Assessment and Plan: Glucose 182 today Hold metformin. SSI 04/30 BS reviewed and stable (7) Coronary artery disease: Code(s): I25.10 - Atherosclerotic heart disease of [place] coronary artery without angina pectoris Status: Acute Assessment and Plan: No ACS (8) Benign prostatic hyperplasia: Code(s): N40.0 - Benign prostatic hyperplasia without lower urinary tract symptoms Status: Acute Assessment and Plan: Bladder scan negative DS: Summary Hospital Course Hospital Course: patient is a 86-year-old male with a past medical history of CHF, hypertension, BPH who presented to the ED with complaints of increased lower extremity edema and dyspnea on exertion. Patient has been treated with IV Lasix twice a day. Patient was also noted to be hypoxic and was treated with oxygen. Patient has been off oxygen for the last 24 hours and has been stable. current I&Os show that patient is euvolemic. Patient feels good this time any sitting in chair eating Lunch. BNP upon admission was 2930. Chest x-ray showed cardiomegaly with mild pulmonary edema with bibasilar airspace opacities. Venous Doppler are negative for bilateral lower extremity deep vein thrombosis. EKG shows electronic atrial paced rhythm. Labs have been stable throughout the visit. Vital signs have also been stable. He is also been able to walk and work with PT. He feels great today and is ready to go home. He denies chest pain, shortness of breath, nausea, vomiting, abdominal pain, weakness, sweats, fevers, and chills. Status at Discharge Functional status at discharge: uses cane/walker Overall status at discharge: patient is progressing back to baseline Time Spent with Patient Time attestation: Total time spent providing and/or coordinating discharge services:48 minutes Time spent: Greater than 30 minutes Exam Const: General: cooperative, healthy appearing, no acute distress, well developed, alert and awake Nutritional Appearance: well nourished Orientation/consciousness: oriented to person, oriented to place, oriented to time and patient oriented x3 Limitations: no limitations HENMT: Head: normal to inspection Ears: hearing grossly normal bilaterally General nose exam: Normal external nose present Mouth: Yes Normal oral and palatal mucosa present, Yes lip normal and Yes tongue normal Teeth and gingiva: abnormal tooth and associated gingiva and poor dentition Eyes: General: appearance n
[2021-05-02 14:00] VITALS: BP 130/54; PULSE 63; RESP 16; TEMP 36.9; O2SAT 91
== END 2021-05-02 15:00 | disposition home or self-care (01) | DRG 291 ==
LOC: ANHED 09:31 → ANHICU 12:58 → ANHIMU 16:51 → ANH3MEDSUR 05-01 15:17 → ANHIMU 05-03 13:28
PROVIDERS: Internal Medicine; Physician Assistant; Admitting Provider Internal Medicine; Emergency Provider Emergency Medicine; PCP Family Medicine Adolescent Medicine; Visit Provider Nurse Practitioner
DX: I11.0 Hypertensive heart disease with heart failure (principal); I50.33 Acute on chronic diastolic (congestive) heart failure; J96.01 Acute respiratory failure with hypoxia; Z20.822 Contact with and (suspected) exposure to COVID-19; I25.10 Atherosclerotic heart disease of native coronary artery without angina pectoris; J44.9 Chronic obstructive pulmonary disease, unspecified; E11.42 Type 2 diabetes mellitus with diabetic polyneuropathy; E11.51 Type 2 diabetes mellitus with diabetic peripheral angiopathy without gangrene; N40.0 Benign prostatic hyperplasia without lower urinary tract symptoms; Z79.82 Long term (current) use of aspirin; Z79.84 Long term (current) use of oral hypoglycemic drugs; Z87.891 Personal history of nicotine dependence; Z91.14 Patient's other noncompliance with medication regimen; Z95.0 Presence of cardiac pacemaker; Z95.1 Presence of aortocoronary bypass graft; Z98.42 Cataract extraction status, left eye; Z98.41 Cataract extraction status, right eye
CPT/HCPCS: 36415; 71046; 80048; 80053; 80061; 82948; 83036; 83735; 83880; 84439; 84443; 84480; 84484; 85025; 85027; 85610; 85730; 87426; 93005; 93922; 93970; 96372; 96374; 96376; 99285; A9270; C9803; G0378; J1650; J1815; J1940

== ENCOUNTER 2021-11-26 12:11 | Outpatient (CLI) | payer MEDICARE, SELFPAY ==
--- NOTE | 2021-12-03 13:29 | WPDPFTINT ---
PFT Procedure Performed PFT Procedure Performed Plethysmography (Lung Vol) Diffusing Cap (DLCO) Flow Vol Loop Spirometry w/o Bronchodil PFT Interpretation DOS: 11/26/2021 REQUESTING: Dr Renee REASON FOR TESTING: Emphysema PULMONARY FUNCTION TESTS Results are reliable and reproducible. Spirometry: Pre bronchodilator FEV1 is 64% predicted, 1.64 L, decreased. Pre bronchodilator FVC is 54% predicted, 1.9 L, decreased. The FEV1/ FVC is 86%, normal. The FEF 25-75 is 109% normal. No bronchodilator was given. Lung volumes: Total lung capacity is 71% mildly decreased consistent with restrictive pattern. This is 4.74 L. the slow vital capacity is 77% which is higher than the forced vital capacity. This demonstrates dynamic airway obstruction. FRC is 77%, 2.862 L, within the normal range. Residual volume is 77%, 2.05 L, normal. RV/TLC is 43% elevated consistent with mild air trapping. Airway resistance is 234%, increased. Diffusion: DLCO is 47%. DLCO/VA is 88% normal. Flow volume loop: There is a mild notched pattern in the inspiratory limb that is present on all three of the flow volume loops. This is nonspecific finding, suggests limitation of flow during inspiration. IMPRESSION: This study shows mild restriction with decreased diffusion. There is also suggestion of obstruction based on the slow vital capacity being higher than the forced vital capacity and mild air trapping. There is a moderate diffusion defect that corrects for alveolar volume. The combination of restriction and low DLCO can be seen in ILD and pneumonitis. The combination of restriction, low DLCO and obstruction can be seen in heart failure, sarcoidosis and asbestosis. This study is not consistent with emphysema, however restriction can mask obstruction. Randa Kelley MD
== END 2021-11-26 12:12 | disposition home or self-care (01) ==
LOC: ANHPFT 12:14
PROVIDERS: PCP Family Medicine Adolescent Medicine; Visit Provider Family Medicine Adolescent Medicine
DX: J43.9 Emphysema, unspecified (principal)
CPT/HCPCS: 94375; 94726; 94729

== ENCOUNTER 2022-06-08 05:12 | Inpatient (IN) | payer MEDICARE, SELFPAY ==
[2022-06-08] VITALS (15 sets, daily range): BP systolic 91–161; BP diastolic 48–82; PULSE 62–86; RESP 14–30; TEMP 36.4–36.8; O2SAT 84–98
--- NOTE | ~2022-06-08 | US_ITS ---
EXAMINATION: US retroperitoneal duplex ltd DATE: 06/10/2022 10:30 INDICATION: Renal artery stenosis TECHNIQUE: Multiple grayscale, color Doppler, and pulsed Doppler images of the kidneys and renal penelope mira were obtained. COMPARISON: CTA dated 01/26/2019 FINDINGS: The aorta peak systolic velocity is 101 cm/s. The right renal artery peak systolic velocity is 110 cm /s in the mid segment, and 119 cm/s in the distal segment. The proximal portion of the right renal ar sabina in the midportion of the left renal artery are not clearly visualized. The left renal artery pea k systolic velocity is 48 cm/s in the proximal segment and 73 cm/s in the distal segment. There are b risk systolic upstrokes and of the distal left and right renal arteries IMPRESSION: 1. No Doppler evidence of renal artery stenosis. The proximal right renal artery and mid left renal artery were unable to be visualized. Reviewed, dictated and finalized at location B. RAFT MAINTENANCE INSTRUCTOR IMPRESSION: 1. No Doppler evidence of renal artery stenosis. The proximal right renal penelope ry and mid left renal artery were unable to be visualized.
--- NOTE | ~2022-06-08 | US_ITS ---
EXAMINATION: US venous doppler [facility] DATE: 06/09/2022 11:59 INDICATION: Lower limb pain. TECHNIQUE: Grayscale ultrasound images without and with compression and Doppler ultrasound images of the bilateral lower extremity veins were obtained. COMPARISON: Ultrasound 04/28/2021 FINDINGS: The visualized portions of right common femoral vein, profunda (deep) femoral vein, femoral vein, pop liteal vein, peroneal veins, posterior tibial veins, and greater saphenous vein outflow are patent. The visualized portions of left common femoral vein, profunda femoral vein, femoral vein, popliteal v ein, peroneal veins, posterior tibial veins, and greater saphenous vein outflow are patent. IMPRESSION: 1. No deep venous thrombosis. Reviewed, dictated and finalized at location A. ARCH QUALITY ASSURANCE SPECIALIST
--- NOTE | ~2022-06-08 | XR_ITS ---
EXAMINATION: XR chest 2V DATE: 06/08/2022 07:03 INDICATION: Shortness of breath. TECHNIQUE: Frontal and lateral views of the chest were obtained on 3 radiographs. COMPARISON: Chest 2 views 04/27/2021, chest CT 01/26/2019 FINDINGS: There are lucencies in the lungs, consistent with emphysema. A calcified right lung nodule is consistent with old granulomatous disease. There is a diffuse interstitial pattern in the lungs, c onsistent with mild pulmonary edema. No pleural effusion or pneumothorax. Cardiomegaly is noted. Medi an sternotomy wires and mediastinal surgical clips are seen, likely from prior coronary artery bypass grafting. There is a left chest wall pacer with leads in the right atrium and right ventricle. IMPRESSION: 1. Mild pulmonary edema. 2. Emphysema. 3. Cardiomegaly. Reviewed, dictated and finalized at location A. SURGEON
--- NOTE | ~2022-06-08 | XR_ITS ---
EXAMINATION: XR wrist LT 2V DATE: 06/14/2022 14:40 INDICATION: Left wrist pain. TECHNIQUE: 2 views of left wrist were obtained. COMPARISON: None. FINDINGS: Bone alignment is normal. No fracture. There is diffuse osteopenia. There is mild osteoarth ritis of triscaphe joint and severe osteoarthritis of first carpometacarpal joint. Partially visualiz ed is osteoarthritis of many of the interphalangeal joints. IMPRESSION: 1. Polyarticular osteoarthritis. Reviewed, dictated and finalized at location A. CLUB ATTENDANT
--- NOTE | ~2022-06-08 | US_ITS ---
EXAMINATION: US renal BI DATE: 06/09/2022 11:59 INDICATION: Renal artery stenosis. TECHNIQUE: Multiple ultrasound grayscale images of the kidneys were obtained. COMPARISON: CT abdomen and pelvis 01/26/2019 FINDINGS: The right kidney measures 9.7 x 5.2 x 5.0 cm. The left kidney measures 10.9 x 5.5 x 5.5 cm. There is cortical thinning of the kidneys. The kidneys demonstrate normal parenchymal echogenicity. There is a 1.7 cm cyst in right kidney. There is no hydronephrosis. The bladder is normal. The prostate is enla rged. IMPRESSION: 1. Cortical thinning of the kidneys. No hydronephrosis. Reviewed, dictated and finalized at location A. IRON WORKER
--- NOTE | ~2022-06-08 | XR_ITS ---
EXAMINATION: XR chest 1V portable DATE: 06/13/2022 11:45 INDICATION: Shortness of breath. TECHNIQUE: A single frontal view of the chest was obtained. COMPARISON: Chest single view 06/09/2022 FINDINGS: There are lucencies in the lungs, consistent with emphysema. There is a diffuse interstitia l pattern in the lungs. No pleural effusion or pneumothorax. Cardiomegaly is noted. Median sternotomy wires and mediastinal surgical clips are seen, likely from prior coronary artery bypass grafting. Th ere is a left chest wall pacer with leads in the right atrium and right ventricle. IMPRESSION: 1. Diffuse lung disease with slight improvement, likely mild pulmonary edema superimposed on emphysem a. 2. Cardiomegaly. Reviewed, dictated and finalized at location A. IL MAKER IMPRESSION: 1. Diffuse lung disease with slight improvement, likely mild pulmonary edema [place] perimposed on emphysema. 2. Cardiomegaly.
--- NOTE | ~2022-06-08 | XR_ITS ---
EXAMINATION: XR elbow RT min 3V INDICATION: Right elbow pain TECHNIQUE: Three views of the right elbow are obtained. COMPARISON: None available FINDINGS: Bone alignment is normal. The bones are osteopenic which limits the sensitivity for fractur e. There is a questionable small fracture along the lateral articular surface of the radial head. The re is moderate osteoarthritis. A calcified loose body is seen in the elbow joint. IMPRESSION: 1. Possible small fracture along the lateral articular surface of the radial head. Consider CT. Reviewed, dictated and finalized at location F. RSTITCH ELASTIC ATTACHER IMPRESSION: 1. Possible small fracture along the lateral articular surface of the radial he ad. Consider CT.
--- NOTE | ~2022-06-08 | XR_ITS ---
EXAMINATION: XR chest 1V portable DATE: 06/09/2022 08:28 INDICATION: Decreased oxygen saturation. TECHNIQUE: A single frontal view of the chest was obtained. COMPARISON: Chest 2 views 06/08/2022, chest CT 01/26/2019 FINDINGS: There are lucencies in the lungs, consistent with emphysema. There is a diffuse interstitia l pattern in the lungs. A calcified right lung nodule is consistent with old granulomatous disease. T here is a small left pleural effusion. No pneumothorax. Cardiomegaly is noted. Median sternotomy wire s and mediastinal surgical clips are seen, likely from prior coronary artery bypass grafting. There i s a left chest wall pacer with leads in the right atrium and right ventricle. There is a prominent le ft paracardial fat pad. IMPRESSION: 1. Diffuse lung disease, likely mild pulmonary edema superimposed on moderate emphysema. 2. Worsened small left pleural effusion. 3. Cardiomegaly. Reviewed, dictated and finalized at location A. [facility] [facility] IMPRESSION: 1. Diffuse lung disease, likely mild pulmonary edema superimposed on moderate e mphysema. 2. Worsened small left pleural effusion. 3. Cardiomegaly.
--- NOTE | ~2022-06-08 | CT_ITS ---
EXAMINATION: CT diagnostic chest wo con DATE: 06/14/2022 13:41 INDICATION: emphysema ?fibrosis TECHNIQUE: Computed tomography (CT) of the chest was performed without intravenous contrast. Addition al 3D reconstructions utilizing coronal maximum intensity projection (MIP) were performed. Automated exposure control and iterative reconstruction technique were employed. The dose-length product was 53 1.56 mGy-cm. COMPARISON: Emphysema. FINDINGS: Severe emphysema. There is relatively uniform small amount of subpleural consolidation along the post erior and inferior aspects of the bilateral lower lungs. There is associated volume loss as evidenced by bronchovascular crowding in the lower lobes and posterior displacement of the major fissures. Mil d groundglass opacity in the dependent lower lungs which could represent or additional atelectasis or pulmonary edema. No pleural effusion. A couple calcified pulmonary nodules in the right lower lobe a nd calcified mediastinal lymph nodes consistent with old granulomatous disease. Cardiomegaly. Enlarge ment of the central pulmonary arteries consistent with pulmonary arterial hypertension. Atherosclerot ic coronary artery calcification is unchanged prior median sternotomy and coronary artery bypass sharona ting. Dual lead cardiac pacemaker lead tips at the right atrial appendage and right ventricle extendi ng towards the ventricular outflow tract. Thoracic aorta is normal in caliber. No pathologically enla rged abdominal or pelvic lymphadenopathy. There are few diverticula scattered along the visualized co refugio without adjacent inflammatory change to suggest diverticulitis. Mild thoracic dextrocurvature wit h moderate spondylosis and bridging osteophytes at multiple levels consistent with diffuse idiopathic skeletal hyperostosis (DISH). IMPRESSION: 1. Severe emphysema with mild subpleural consolidation at the inferior and posterior periphery of the bilateral lower lungs with associated volume loss and would favor atelectasis/scarring over chronic interstitial lung disease. 2. Cardiomegaly with enlargement of the central pulmonary arteries consistent with pulmonary arterial hypertension. Reviewed, dictated and finalized at location B. [facility] IMPRESSION: 1. Severe emphysema with mild subpleural consolidation at the inferior and post erior periphery of the bilateral lower lungs with associated volume loss and wo uld favor atelectasis/scarring over chronic interstitial lung disease. 2. Cardiomegaly with enlargement of the central pulmonary arteries consistent w ith pulmonary arterial hypertension.
--- NOTE | 2022-06-08 06:28 | ECG_ITS ---
Measurements Intervals [place] Rate: 78 P: TN: 0 QRS: 263 QRSD: 113 T: 53 QT: 396 QTc: 454 Interpretive Statements ATRIAL FLUTTER/TACHYCARDIA WITH NORMAL VENTRICULAR RESPONSE RIGHT AXIS DEVIATION LOW QRS VOLTAGE IN PRECORDIAL LEADS RIGHT BUNDLE BRANCH BLOCK INFERIOR INFARCT, AGE INDETERMINATE BASELINE ARTIFACT- I, II, III, AVR, AVL, AVF, V1-V6 ABNORMAL ECG COMPARED TO ECG 04/27/2021 09:04:24 ATRIAL FLUTTER/TACHYCARDIA NOW PRESENT Electronically Signed On 06-08-2022 10:19:23 FINISH MACHINE TENDER by Pedro Flynn D.O.
[2022-06-08 06:37] LABS: Basophils Absolute Auto 0.1 K/mm3 (0.0-0.1); Basophils Percent Auto 1.1 % (0.2-1.2); Eosinophils Absolute Auto 0.2 K/mm3 (0-0.3); Eosinophils Percent Auto 2.5 % (0-4.4); Hematocrit 43.3 % (42.0-52.0); Hemoglobin 12.5 g/dL (14.0-18.0); Immature Granulocyte Absolute 0.01 K/mm3 (0.00-0.031); Immature Granulocyte Percent A 0.1 % (0-0.5); Lymphocytes Absolute Auto 1.38 K/mm3 (0.9-3.2); Lymphocytes Percent Auto 18.9 % (18.3-44.2); Mean Corpuscular HGB Conc 28.9 g/dl (32-36); Mean Corpuscular Hemoglobin 27.1 pg (26-34); Mean Corpuscular Volume 93.9 fl (80-100); Mean Platelet Volume 10.5 fl (7.4-10.4); Monocytes Absolute Auto 0.8 K/mm3 (0.1-0.6); Monocytes Percent Auto 11.1 % (2.6-8.5); Neutrophils Absolute Auto 4.8 K/mm3 (1.3-6.7); Neutrophils Percent Auto 66.3 % (45.5-73.1); Platelet Count Result 237 k/mm3 (150-375); Red Blood Count 4.61 M/mm3 (4.6-6.20); Red Cell Distribution Width 15.9 % (11.5-14.5); White Blood Count 7.3 K/mm3 (4.5-10.0)
[2022-06-08 06:48] LABS: INR 1.3; Prothrombin Time 15.9 Seconds (11.1-14.7)
[2022-06-08 06:49] LABS: Partial Thromboplastin Time 33.1 SECONDS (22.3-36.8)
[2022-06-08 06:50] LABS: Alanine Aminotransferase 13 U/L (6-50); Albumin Level 3.8 g/dL (3.5-5.1); Alkaline Phosphatase 96 U/L (38-126); Anion Gap 1 mmol/L (8-16); Aspartate Amino Transferase 20 U/L (17-59); Bilirubin,Total 0.8 mg/dL (0.2-1.3); Blood Urea Nitrogen 27 mg/dL (9-20); Calcium 8.5 mg/dL (8.4-10.2); Carbon Dioxide 39 mmol/L (22-30); Chloride 96 mmol/L (98-107); Estimated Glomerular Filt Rate > 60; Glucose 135 mg/dL (65-110); Potassium 4.6 mmol/L (3.4-5.0); Sodium 136 mmol/L (137-145)
[2022-06-08 07:01] LABS: NT Pro B Type Natriuretic Pept 2170 pg/mL (19.9-100); Troponin I < 0.012 ng/mL (0.000-0.034)
[2022-06-08] MEDS: FUROSEMIDE INJ 40 MG/4 ML VIAL IV PUSH ×2 (07:55→20:23)
--- NOTE | 2022-06-08 10:01 | ED.SOB ---
HPI - SOB/Dyspnea General Chief Complaint: Shortness of Breath/Dyspnea Stated Complaint: Shortness of breath/chest pressure Time Seen by Provider: 06/08/22 06:30 History of Present Illness HPI Narrative: Patient is an 87-year-old male who presents ER with shortness of breath. Worsening over the last 2 days. Found to be hypoxic and is now requiring oxygen. Patient takes Lasix for his CHF. Reports he has not been taking it appropriately because he has been going to the chiropractor does not want to have to urinate while he was there. No chest pain or chest pressure. No fevers or chills or sweats. Patient reports chronic back pain in no acute injury. No lower extremity numbness or tingling or weakness. Related Data Home Medications Medication Instructions Recorded Confirmed apixaban 2.5 mg tablet (Eliquis) 2.5 mg PO BID 01/07/22 06/08/22 furosemide 40 mg tablet 80 mg PO QAM 06/08/22 06/08/22 omeprazole 20 mg capsule,delayed 20 mg PO DAILY PRN Acid Reflux 06/08/22 06/08/22 release Allergies Allergy/AdvReac Type Severity Reaction Status Date / Time levofloxacin Allergy Mild unknown Verified 06/08/22 05:49 Review of Systems Review of Systems: All systems reviewed & are unremarkable except as noted in HPI and below Constitutional: Constitutional: Denies chills, Denies fatigue and Denies fever(s) ENT: Denies nasal congestion and Denies sore throat Cardiovascular: Cardiovascular: Denies chest pain, Denies rapid heart rate and Denies radiating jaw, neck or arm pain Respiratory: Respiratory: Denies chest congestion, Denies cough and Reports dyspnea Gastrointestinal: Gastrointestinal: Denies abdominal pain, Denies nausea and Denies vomiting Musculoskeletal: Musculoskeletal: Reports back pain Neurologic: Denies focal weakness and Denies numbness [facility] Past Medical History Medical History (Updated 06/08/22 @ 18:15 by Stevan Guillory MD) Abdominal aortic aneurysm Noted on CT in 01/2019. Abnormal pulmonary function test (11/2021) PFTs show mild restriction with decreased diffusion and suggestion of obstruction. the combination of restriction low DLCO can be seen in interstitial lung disease and pneumonitis and a combination of restriction, low DLCO, and obstruction can be seen heart failure, sarcoidosis, asbestosis. Study was not consistent with emphysema however restriction can be mass by obstruction. Aortic atherosclerosis Noted on CT in 01/2019. Benign prostatic hyperplasia Cerebrovascular accident No residual deficit. Chronic anticoagulation Chronic atrial fibrillation Coronary artery disease Status post five-vessel bypass. Diabetic peripheral neuropathy Diastolic congestive heart failure Gastroesophageal reflux disease History of peptic ulcer Ischemic cardiomyopathy Osteoarthritis Paroxysmal atrial flutter Peripheral vascular disease Renal artery stenosis Noted on CT in 01/2019. Sick sinus syndrome Status post permanent pacemaker insertion, Biotronik. Transient ischemic attack Type 2 diabetes mellitus Surgical History Surgical History (Updated 06/08/22 @ 13:18 by Leigha Linares PA-C) History of bilateral cataract extraction History of five vessel coronary artery bypass (2007) History of inguinal hernia repair History of permanent cardiac pacemaker placement (2016) Family History Family History (Updated 04/27/21 @ 23:51 by Leigha Linares PA-C) Other Congestive heart failure Diabetes mellitus Social History Social History (Updated 06/08/22 @ 13:18 by Leigha Linares PA-C) Social History: Surrogate decision maker: Ewa Aguilar, . Code status: Full code. Smoking packs per day: 1 Smoking cigarettes per day: 20.0 Years smoked: 40 Smoking pack-years: 40.00 Smoking status: Former smoker Second hand tobacco smoke exposure: No Smoking end date: 05/19/69 Alcohol intake: never Substance use: never Substance use type: does not use Lack of Transpor
[2022-06-08 11:37] LABS: Influenza A QL RT-PCR Negative (Negative); Influenza B QL RT-PCR Negative (Negative); SARS-CoV-2 RNA PCR Negative
--- NOTE | 2022-06-08 13:05 | PM.IMHP ---
H&P: HPI History of Present Illness Date/Time: 06/08/22 13:05 Chief Complaint: Short of breath and chest pressure. Narrative: This is a very pleasant 87-year-old gentleman with coronary artery disease, ischemic cardiomyopathy, diastolic congestive heart failure, diabetes, and several other comorbidities who presented to the emergency department from home for evaluation of shortness of breath and chest pressure. The following history is obtained from the patient. He has been feeling increasingly short of breath with lesser and lesser exertion over the past several days and he has also noticed an increase in lower extremity edema. Additionally he has mild chest pressure when he is feeling especially short of breath. he has occasional sensations of racing heart and palpitations though that is not new nor has it been worse recently. He has a mild cough which is chronic and unchanged. He denies fever, chills, sweats, sinus congestion, sore throat, exertional chest pain, pleuritic pain, orthopnea, paroxysmal nocturnal dyspnea, nausea, and vomiting. No syncope or near syncope. He has not had any recent change in medications. He is prescribed Lasix at home and is compliant aside from the days that he goes to the chiropractor; he does not want to have continuously get up to urinate. SpO2 was 84% on arrival to triage, other vital signs were stable. He is currently requiring 4 L nasal cannula to maintain his SpO2 in the upper 90s. He is in atrial fibrillation/flutter chronically and is rate controlled. Chest x-ray showed mild pulmonary edema. Initial troponin was negative. ProBNP was elevated at 2170. In the ED he was given furosemide 40 mg IV push x1 and he has had good a response. He is being admitted for further diuresis and monitoring. Review of Systems Review of Systems: Twelve systems were reviewed and are negative except for as per HPI. [facility] Past Medical History Medical History Abdominal aortic aneurysm Noted on CT in 01/2019. Abnormal pulmonary function test (11/2021) PFTs show mild restriction with decreased diffusion and suggestion of obstruction. the combination of restriction low DLCO can be seen in interstitial lung disease and pneumonitis and a combination of restriction, low DLCO, and obstruction can be seen heart failure, sarcoidosis, asbestosis. Study was not consistent with emphysema however restriction can be mass by obstruction. Aortic atherosclerosis Noted on CT in 01/2019. Benign prostatic hyperplasia Cerebrovascular accident No residual deficit. Chronic anticoagulation Chronic atrial fibrillation Coronary artery disease Status post five-vessel bypass. Diabetic peripheral neuropathy Diastolic congestive heart failure Gastroesophageal reflux disease History of peptic ulcer Ischemic cardiomyopathy Osteoarthritis Paroxysmal atrial flutter Peripheral vascular disease Renal artery stenosis Noted on CT in 01/2019. Sick sinus syndrome Status post permanent pacemaker insertion, Biotronik. Transient ischemic attack Type 2 diabetes mellitus Surgical History Surgical History History of bilateral cataract extraction History of five vessel coronary artery bypass (2007) History of inguinal hernia repair History of permanent cardiac pacemaker placement (2016) Family History Family History Other Congestive heart failure Diabetes mellitus Social History Social History (Updated 06/08/22 @ 13:18 by Leigha Linares PA-C) Social History: Surrogate decision maker: Ewa Aguilar, . Code status: Full code. Smoking packs per day: 1 Smoking cigarettes per day: 20.0 Years smoked: 40 Smoking pack-years: 40.00 Smoking status: Former smoker Second hand tobacco smoke exposure: No Smoking end date: 05/19/69 Alcohol intake: never Substa
[2022-06-08 16:43] LABS: Troponin I < 0.012 ng/mL (0.000-0.034)
[2022-06-08 17:34] LABS: Glucose Point of Care 159 mg/dl (65-105)
[2022-06-08] MEDS: metFORMIN HCL 500 MG TABLET PO (18:24)
[2022-06-08] MEDS: GABAPENTIN 300 MG CAPSULE 600 MG PO (18:24)
[2022-06-08] MEDS: APIXABAN 2.5 MG TABLET PO (20:23)
[2022-06-08] MEDS: carvediloL 6.25 MG TABLET PO (20:23)
[2022-06-08 20:42] LABS: Glucose Point of Care 158 mg/dl (65-105)
[2022-06-09] VITALS (21 sets, daily range): BP systolic 94–115; BP diastolic 35–75; PULSE 69–122; RESP 15–32; TEMP 36.5–36.9; O2SAT 92–100
[2022-06-09 06:12] LABS: Hematocrit 44.6 % (42.0-52.0); Hemoglobin 12.8 g/dL (14.0-18.0); Mean Corpuscular HGB Conc 28.7 g/dl (32-36); Mean Corpuscular Hemoglobin 27.4 pg (26-34); Mean Corpuscular Volume 95.3 fl (80-100); Mean Platelet Volume 9.8 fl (7.4-10.4); Platelet Count Result 219 k/mm3 (150-375); Red Blood Count 4.68 M/mm3 (4.6-6.20); Red Cell Distribution Width 15.9 % (11.5-14.5)
[2022-06-09 06:31] LABS: Anion Gap 2 mmol/L (8-16); Blood Urea Nitrogen 24 mg/dL (9-20); Calcium 8.3 mg/dL (8.4-10.2); Carbon Dioxide 38 mmol/L (22-30); Chloride 95 mmol/L (98-107); Estimated Glomerular Filt Rate > 60; Glucose 144 mg/dL (65-110); Potassium 4.3 mmol/L (3.4-5.0); Sodium 135 mmol/L (137-145)
--- NOTE | 2022-06-09 08:09 | ECG_ITS ---
Measurements Intervals [place] Rate: 101 P: [place]: 0 QRS: 263 QRSD: 107 T: 71 QT: 363 QTc: 470 Interpretive Statements ATRIAL FIBRILLATION WITH RAPID VENTRICULAR RESPONSE RIGHT AXIS DEVIATIONR RIGHT BUNDLE BRANCH BLOCK LOW QRS VOLTAGE IN PRECORDIAL LEADS CONSIDER INFERIOR INFARCT, AGE INDETERMINATE BASELINE ARTIFACT- I, II, III, AVR, AVL, AVF, V1-V2 ABNORMAL ECG COMPARED TO ECG 06/08/2022 06:39:07 ATRIAL FIBRILLATION NOW PRESENT Electronically Signed On 06-09-2022 9:05:41 RECREATION ESTABLISHMENT MANAGER by Pedro Flynn D.O.
[2022-06-09 08:15] LABS: Alveolar/Arterial O2 Gradient 347.8 mmHg; Base Excess ABG 7.8 mEq/l (+/-2.0); Fractional Inspired Oxygen 100 %; HCO3 ABG 36.9 mEq/l (22.0-26.0); Oxygen Content ABG 19.2 %vol (16.0-22.0); Oxygen Saturation ABG 99.6 % (95.0-100.0); Oxyhemoglobin 97.4 % THb (90.0-100.0); PO2 ABG 290.1 mmHg (80.0-100.0); Total Hemoglobin 13.5 g/dL (12.0-18.0); pH ABG 7.309 (7.350-7.450)
[2022-06-09 08:16] LABS: Device NON-REBREATHER MASK; Modified Allen's Test Pass; PCO2 ABG 75.1 mmHg (35.0-45.0); Site Drawn RIGHT RADIAL
[2022-06-09] MEDS: FUROSEMIDE INJ 40 MG/4 ML VIAL IV PUSH ×2 (08:24→17:08)
--- NOTE | 2022-06-09 08:32 | PM.IMPN ---
Progress Note: A&P Assessment and Plan (1) Acute on chronic diastolic congestive heart failure: Code(s): I50.33 - Acute on chronic diastolic (congestive) heart failure Status: Acute Assessment and Plan: Etiology for acute exacerbation is not entirely clear though may be related to occasional missed Lasix doses however that does not sound like a frequent occurrence. He has rare mild chest pressure though that seems to be more related to his shortness of breath and acute coronary syndrome seems unlikely. Continue diuresis with Lasix 40 mg IV push b.i.d. Close monitoring of I/O, daily weights, renal function, electrolytes. (2) Chest pressure: Code(s): R07.89 - Other chest pain Status: Acute Assessment and Plan: The patient endorses where, self-limiting mid chest pressure which seems to be related to when he is feeling short of breath. It does not sound exertional and there are no other associated symptoms. Most likely related to work of breathing. PE less likely. Continue to monitor on telemetry. Echocardiogram ordered (none recent in this EMR). (3) Acute respiratory failure with hypoxia: Code(s): J96.01 - Acute respiratory failure with hypoxia Status: Acute Assessment and Plan: SpO2 was 84% on room air on arrival, currently requiring 4 L nasal cannula to maintain oxygen saturations in the upper 90s. Related to pulmonary edema and probably some component of underlying lung disease (PFTs from November 2021 noted). Pulmonary embolism is unlikely as he is on apixaban and states compliance with the same. Continue diuresis. Bronchodilators will likely not be of benefit with recent PFTs. May need home O2 evaluation prior to discharge. 06/09/22 At approximately 8:00 a.m. rapid response called on patient due to hypoxia and respiratory distress. My attending physician and myself responded with haste patient's room in which he was having difficulty breathing. Per nurse patient's oxygen saturation was in the low 80s and sometimes dropping into the 60s. Patient admitted for CHF exacerbation. Stat chest x-ray ordered and revealed worsening pulmonary edema. EKG with no acute ischemic changes. Stat ABG revealed pCO2 75.1, pH of 7.3 in an HC03 of 36.9. No previous ABG to compare. Patient put on BiPAP and transferred to IMU. 40 mg IV Lasix administered. Bilateral lower extremity Doppler ultrasound ordered. Labs include BNP, BMP, CBC, lactic, Mag, phosphorus, PT and PTT, and troponin. Patient has history of chronic AFib and undertreated with Eliquis Ddx: PE due to under treatment with eliquis. B/l LE US Doppler ordered and consider CTA, Echo to assess ischemic cardiomyopathy, Renal US due to stenosis can cause flash pulmonary edema, Coronary ischemic disease likely due to diagnosed PAD, no wheezing on exam thus unlikely COPD exac, undiagnosed KOBI PTF's noted from last year with restrictive and obstructive lung disease Due to lack of elevated white count, normal lactic acid, and afibrile less likely infectious process Discussed case with cement side laster and he agrees to follow patient Plan for Apnea link before discharge (4) Essential (primary) hypertension: Code(s): I10 - Essential (primary) hypertension Status: Acute Assessment and Plan: Blood pressures were reviewed and they are stable and well controlled. Antihypertensives will be reviewed and resumed as appropriate. Monitor blood pressures closely while diuresing. (5) Chronic atrial fibrillation: Code(s): I48.20 - Chronic atrial fibrillation, unspecified Status: Acute Assessment and Plan: He is rate controlled and chronic atrial fibrillation/flutter. Continue carvedilol for rate control. Continue apixaban for stroke prophylaxis. (6) Type 2 diabetes mellitus with diabetic polyneuropathy: Code(s): E11.42 - Type 2 diabetes mellitus with diabetic myla
[2022-06-09 08:35] LABS: Hematocrit 44.7 % (42.0-52.0); Hemoglobin 12.6 g/dL (14.0-18.0); Mean Corpuscular HGB Conc 28.2 g/dl (32-36); Mean Corpuscular Hemoglobin 26.9 pg (26-34); Mean Corpuscular Volume 95.5 fl (80-100); Mean Platelet Volume 10.1 fl (7.4-10.4); Platelet Count Result 206 k/mm3 (150-375); Red Blood Count 4.68 M/mm3 (4.6-6.20); Red Cell Distribution Width 15.9 % (11.5-14.5); White Blood Count 7.8 K/mm3 (4.5-10.0)
[2022-06-09 08:48] LABS: Anion Gap 5 mmol/L (8-16); Blood Urea Nitrogen 23 mg/dL (9-20); Calcium 8.4 mg/dL (8.4-10.2); Carbon Dioxide 37 mmol/L (22-30); Chloride 98 mmol/L (98-107); Estimated Glomerular Filt Rate > 60; Glucose 141 mg/dL (65-110); Lactic Acid Reflex 1.2 mmol/L (0.7-2.0); Phosphorus 3.8 mg/dL (2.5-4.5); Potassium 4.5 mmol/L (3.4-5.0); Sodium 140 mmol/L (137-145)
[2022-06-09 08:52] LABS: INR 1.4; Partial Thromboplastin Time 34.6 SECONDS (22.3-36.8); Prothrombin Time 16.5 Seconds (11.1-14.7)
[2022-06-09 08:55] LABS: Magnesium 1.9 mg/dL (1.6-2.3)
[2022-06-09 09:00] LABS: Troponin I < 0.012 ng/mL (0.000-0.034)
[2022-06-09 09:02] LABS: NT Pro B Type Natriuretic Pept 1630 pg/mL (19.9-100)
--- NOTE | 2022-06-09 09:18 | PC.NURSE ---
This patient, Jasonyasmany Kar Aguilar Jr., was received from [[id number] ] on 06/09/22 at 0840. Patient/family oriented to unit policies and routines
[2022-06-09 09:38] LABS: Procalcitonin 0.1 ng/mL
[2022-06-09] MEDS: GABAPENTIN 300 MG CAPSULE 600 MG PO ×2 (10:26→17:08)
[2022-06-09] MEDS: APIXABAN 2.5 MG TABLET PO ×2 (10:26→21:33)
[2022-06-09] MEDS: carvediloL 6.25 MG TABLET PO ×2 (10:26→21:33)
[2022-06-09 10:57] LABS: Base Excess ABG 7.2 mEq/l (+/-2.0); Fractional Inspired Oxygen 21 %; HCO3 ABG 35.9 mEq/l (22.0-26.0); Oxygen Content ABG 16.7 %vol (16.0-22.0); Oxygen Saturation ABG 90.8 % (95.0-100.0); Oxyhemoglobin 90.3 % THb (90.0-100.0); PO2 ABG 66.8 mmHg (80.0-100.0); PO2 FiO2 Ratio Arterial Blood 3.18 %; Total Hemoglobin 13.1 g/dL (12.0-18.0); pH ABG 7.313 (7.350-7.450)
[2022-06-09 10:59] LABS: Modified Allen's Test Pass; PCO2 ABG 72.4 mmHg (35.0-45.0); Site Drawn RIGHT RADIAL
[2022-06-09 11:58] LABS: Glucose Point of Care 141 mg/dl (65-105)
[2022-06-09 12:48] LABS: Troponin I < 0.012 ng/mL (0.000-0.034)
[2022-06-09 15:09] LABS: Troponin I < 0.012 ng/mL (0.000-0.034)
[2022-06-09 16:54] LABS: Glucose Point of Care 200 mg/dl (65-105)
[2022-06-09 17:48] LABS: Alveolar/Arterial O2 Gradient 152.2 mmHg; Base Excess ABG 5.3 mEq/l (+/-2.0); Fractional Inspired Oxygen 40 %; Oxygen Saturation ABG 88.4 % (95.0-100.0); PO2 ABG 59.6 mmHg (80.0-100.0); PO2 FiO2 Ratio Arterial Blood 1.49 %; Total Hemoglobin 12.9 g/dL (12.0-18.0); pH ABG 7.332 (7.350-7.450)
[2022-06-09 17:59] LABS: Modified Allen's Test Pass; PCO2 ABG 63.8 mmHg (35.0-45.0); Site Drawn LEFT RADIAL
[2022-06-09 18:00] LABS: Device BIPAP
[2022-06-09 18:01] LABS: Expiratory Pressure 6 cmH2O; Inspiratory Pressure 15 cmH2O
[2022-06-09 19:17] LABS: Appearance Urine Slightly Cloudy (Clear); Bilirubin Urine Negative (Negative); Blood Urine Trace-intact (Negative); Color Urine Yellow (Yellow); Glucose Urine UA Negative (Negative); Ketones Urine Negative (Negative); Leukocyte Esterase Ur 3+ LEU/UL (Negative); Nitrate Urine Negative (Negative); Protein Urine Negative (Negative); pH Urine 5.5 (5.0-9.0)
[2022-06-09 19:23] LABS: Add Urine Microscopic? YES; Bacteria Urine 1+ /hpf; Mucus Urine Rare /lpf; Squamous Epithelial Cell Urine Rare /hpf (Few); WBC Urine >75 /hpf
--- NOTE | 2022-06-09 20:21 | PCRCNOTE ---
RT found pt on cont. BIPAP 15/6, Rate 16, FI02 50%. Pt MV and APNEA ALARMS were disable. RT was not notified. RT set appropriate alarm for pt.
[2022-06-09 20:22] LABS: Glucose Point of Care 155 mg/dl (65-105)
[2022-06-10] VITALS (19 sets, daily range): BP systolic 95–108; BP diastolic 41–79; PULSE 70–93; RESP 18–23; TEMP 36.9–37.5; O2SAT 92–99
[2022-06-10 04:41] LABS: Basophils Absolute Auto 0.1 K/mm3 (0.0-0.1); Basophils Percent Auto 0.7 % (0.2-1.2); Eosinophils Absolute Auto 0.1 K/mm3 (0-0.3); Hematocrit 39.7 % (42.0-52.0); Hemoglobin 11.3 g/dL (14.0-18.0); Immature Granulocyte Absolute 0.02 K/mm3 (0.00-0.031); Immature Granulocyte Percent A 0.3 % (0-0.5); Lymphocytes Absolute Auto 1.48 K/mm3 (0.9-3.2); Lymphocytes Percent Auto 20.7 % (18.3-44.2); Mean Corpuscular HGB Conc 28.5 g/dl (32-36); Mean Corpuscular Hemoglobin 26.5 pg (26-34); Mean Corpuscular Volume 93.2 fl (80-100); Mean Platelet Volume 10.7 fl (7.4-10.4); Monocytes Absolute Auto 0.9 K/mm3 (0.1-0.6); Monocytes Percent Auto 12.4 % (2.6-8.5); Neutrophils Absolute Auto 4.7 K/mm3 (1.3-6.7); Neutrophils Percent Auto 64.9 % (45.5-73.1); Platelet Count Result 193 k/mm3 (150-375); Red Blood Count 4.26 M/mm3 (4.6-6.20); Red Cell Distribution Width 15.8 % (11.5-14.5); White Blood Count 7.2 K/mm3 (4.5-10.0)
[2022-06-10 04:51] LABS: Platelet Estimate Adequate (Adequate); Stomatocytes 1+ (NORMAL)
[2022-06-10 04:52] LABS: Hypochromasia 1+ (NORMAL)
[2022-06-10 04:54] LABS: Alanine Aminotransferase 12 U/L (6-50); Albumin Level 3.4 g/dL (3.5-5.1); Alkaline Phosphatase 80 U/L (38-126); Anion Gap 1 mmol/L (8-16); Aspartate Amino Transferase 21 U/L (17-59); Bilirubin,Total 1.1 mg/dL (0.2-1.3); Blood Urea Nitrogen 25 mg/dL (9-20); CRP 2.2 mg/dL (<1.0); Calcium 8.1 mg/dL (8.4-10.2); Carbon Dioxide 39 mmol/L (22-30); Chloride 93 mmol/L (98-107); Estimated Glomerular Filt Rate > 60; Glucose 107 mg/dL (65-110); Magnesium 1.9 mg/dL (1.6-2.3); Potassium 3.9 mmol/L (3.4-5.0); Sodium 133 mmol/L (137-145)
[2022-06-10 07:46] LABS: Alveolar/Arterial O2 Gradient 125.9 mmHg; Base Excess ABG 6.6 mEq/l (+/-2.0); Carboxyhemoglobin 0.4 % THb (0-2.0); Fractional Inspired Oxygen 40 %; HCO3 ABG 32.7 mEq/l (22.0-26.0); Methemoglobin ABG 0.3 %THb (0-1.5); Oxygen Content ABG 15.8 %vol (16.0-22.0); Oxygen Saturation ABG 97.3 % (95.0-100.0); Oxyhemoglobin 96.2 % THb (90.0-100.0); PCO2 ABG 53.8 mmHg (35.0-45.0); PO2 ABG 97.4 mmHg (80.0-100.0); PO2 FiO2 Ratio Arterial Blood 2.43 %; Reduced Hemoglobin 3.1 %THb (0-5.0); Total Hemoglobin 11.6 g/dL (12.0-18.0); pH ABG 7.401 (7.350-7.450)
[2022-06-10 07:47] LABS: Device NON-INVASIVE VENT; Modified Allen's Test Pass; Site Drawn RIGHT RADIAL
[2022-06-10 07:48] LABS: Non-Invasive Expiratory Pressure 6 CMH2O; Non-Invasive Inspiratory Pressure 15 CMH2O; Non-Invasive Vent Rate 16 /MIN
[2022-06-10 08:29] LABS: Glucose Point of Care 104 mg/dl (65-105)
[2022-06-10] MEDS: FUROSEMIDE INJ 40 MG/4 ML VIAL IV PUSH (10:25)
[2022-06-10] MEDS: GABAPENTIN 300 MG CAPSULE 600 MG PO ×2 (10:27→16:41)
[2022-06-10] MEDS: PANTOPRAZOLE 40 MG TABLET PO (10:27)
[2022-06-10] MEDS: APIXABAN 2.5 MG TABLET PO ×2 (10:27→20:20)
[2022-06-10] MEDS: carvediloL 6.25 MG TABLET PO ×2 (10:28→20:21)
[2022-06-10 11:39] LABS: Glucose Point of Care 216 mg/dl (65-105)
[2022-06-10] MEDS: INSULIN ASPART (*BKC) 100 UNITS/ML SUB-Q (11:51)
--- NOTE | 2022-06-10 12:41 | PM.IMPN ---
Progress Note: A&P Assessment and Plan (1) Acute respiratory failure with hypoxia: Code(s): J96.01 - Acute respiratory failure with hypoxia Status: Acute Assessment and Plan: SpO2 was 84% on room air on arrival. Related to pulmonary edema and probably some component of underlying lung disease (PFTs from November 2021 noted). Pulmonary embolism is unlikely as he is on apixaban and states compliance with the same. Patient with worsening respiratory failure. CXR showing worsening pulmonary edema.?Also with hypercapnia so feel a component related to undiagnosed KOBI. Symptoms better. Continue to monitor. Able to wean off the BiPAP during the day. Continue the BiPAP at night. Will need apnealink at some point. (2) Acute on chronic diastolic congestive heart failure: Code(s): I50.33 - Acute on chronic diastolic (congestive) heart failure Status: Acute Assessment and Plan: Etiology for acute exacerbation is not entirely clear though may be related to occasional missed Lasix doses. He has rare mild chest pressure though that seems to be more related to his shortness of breath and acute coronary syndrome seems unlikely. Cr stable. Feeling better. Continue diuresis with Lasix but decreased frequency Close monitoring of I/O, daily weights, renal function, electrolytes. (3) Chest pressure: Code(s): R07.89 - Other chest pain Status: Acute Assessment and Plan: The patient with mid chest pressure related to feeling short of breath. It does not sound exertional and there are no other associated symptoms. Most likely related to work of breathing. PE less likely. Continue to monitor on telemetry. Echocardiogram pending (4) Essential (primary) hypertension: Code(s): I10 - Essential (primary) hypertension Status: Acute Assessment and Plan: Patient's blood pressure was reviewed on 06/10 Blood pressure soft at times. place parametes. Adjust Lasix Will continue current medications. (5) Chronic atrial fibrillation: Code(s): I48.20 - Chronic atrial fibrillation, unspecified Status: Acute Assessment and Plan: He is rate controlled and chronic atrial fibrillation/flutter. Continue carvedilol for rate control. Continue apixaban for stroke prophylaxis. (6) Type 2 diabetes mellitus with diabetic polyneuropathy: Code(s): E11.42 - Type 2 diabetes mellitus with diabetic polyneuropathy Status: Acute Assessment and Plan: A1c 9.0. The patient's blood glucose was reviewed on 06/10 Glucose eelvated at times. Continue AccuCheks covering with sliding scale. Hypoglycemia protocol available as needed. Only on metformin at home. Continue to monitor. Subjective Date/time seen: 06/10/22 12:41 Interval history: 87yo male with cAFib, CHF and DM here for shortness of breath.? Patient tolerated BiPAP overnight. He does not wear BiPAP at home. He is not on home oxygen. He denies any chest pain or shortness of breath at this time. No dysuria or hematuria. He feels that the leg edema is improved. He normally walks with a walker at home. Exam Narrative: AF 96/55 85 18 92% Gen - NARD sitting at the side of the bed Chest - bibasilar inspiratory crackles, nml RR CV -irregularly irregular. S1-S2. Telemetry showing AFib with controlled rate. Abd -soft. Nontender. Positive bowel sounds. Ext - 1-2+ pedal edema Psych - Nml mood and affect Skin - Warm and dry Objective Data Vital Signs Vital Signs: Vital Signs - 24 hr 06/09/22 14:00 06/09/22 14:00 06/09/22 15:15 Temperature Pulse Rate 86 86 99 Respiratory Rate 26 H 23 H Blood Pressure Pulse Oximetry 95 94 Oxygen Delivery BiPAP Nasal Cannula Oxygen Flow Rate 6 Fraction of Inspired Oxygen 40 06/09/22 15:36 06/09/22 16:00 06/09/22 16:00 Temperature 97.7 F Pulse Rate 75 75 78 Respiratory Rate 20 32 H Blood Pressure 94/50 L Pulse Oximetry
[2022-06-10] MEDS: PERFLUTREN LIPID MICROSPHERES 1.5 ML VIAL DILUTED TO 10 ML TOTAL VOLUME IV PUSH (14:53)
--- NOTE | 2022-06-10 14:53 | IVDEFINITY ---
Prior to administration of IV Definity the patient was educated on the risks and benefits of the imaging enhancing agent including potential adverse side effects. The patient verbalized understanding. Allergies were verified. No exclusion criteria were identified and at least one of the following inclusion criteria were met: 1) physician request, 2) patient technically difficult to image (per the [place] [employer]chocardi[employer] guidelines of two or more segments not discernable within the apical view), or 3) questionable left ventricular function. ?
--- NOTE | 2022-06-10 15:11 | ECHO_ITS ---
Patient Info Name: Stephanie Aguilar Age: 87 years : 1935 Gender: Male Ht: 68 in Wt: 209 lbs BSA: 2.16 m2 HR: 81 bpm BP: 95 / 79 mmHg Heart Rhythm: Atrial Fibrillation Technical Quality: Fair Exam Date: 06/10/2022 2:10 PM Exam Location: [facility] Card Pulmonary Patient Status: Inpatient Admit Date: 06/09/2022 Staff Ordering Physician: Leigha Linares PA-C Business Services Analyst: Mariia Nguyen RDCS Attending Provider: Darrin Streeter MD Referring Physician: Milagros MACIAS; Exam Type: CA echo dop color flow w con Study Info Indications - chf, chest pressure, cad Complete two-dimensional, color flow and Doppler transthoracic echocardiogram is performed with contrast to opacify the left ventricle and to improve the deliniation of the left ventricle endocardial borders. Contrast/Agitated Saline Contrast/Ag. Saline: Definity Amount: 3.00 ml Administered By: Mariia Nguyen RDCS Existing IV Access: Yes IV Access Condition: patent with no signs of infiltration Summary 1. Technically difficult echocardiogram, definity contrast used to improve endocardial visualization. 2. Following contrast injection left ventricular size and systolic function noted to be 1 nicely preserved. 3. Mild concentric LVH. 4. Mild mitral regurgitation. 5. Significant left atrial dilation. 6. Presence of pacemaker lead noted in the right heart chambers. Left Ventricle Left ventricular chamber dimension is normal. Left ventricular systolic function is normal, estimated at 60-65%. There is mild concentric increased left ventricular wall thickness. The left ventricular diastolic function is grade I diastolic dysfunction. Right Ventricle Right ventricular chamber dimension is not well visualized. Left Atria Left atrial chamber dimension is severely enlarged. Right Atria Right atrial chamber dimension is moderately enlarged. Aortic Valve The aortic valve is trileaflet. There is mild aortic valve sclerosis. Pulmonic Valve The pulmonic valve is normal. Mitral Valve The mitral valve has normal leaflets. There is trace mitral valve regurgitation. Tricuspid Valve The tricuspid valve leaflets are not well visualized. Pericardium/Pleural The pericardium appears normal. Aorta The aortic root size at the sinus of Valsalva is normal. Left Ventricular Outflow Tract Name Value Normal LVOT 2D LVOT Diameter 2.00 cm LVOT Doppler LVOT Peak Gradient 4 mmHg LVOT Mean Gradient 2 mmHg LVOT VTI 20.33 cm LVOT VTI/AV VTI Ratio 0.81 LVOT Stroke Volume 63.84 ml LVOT CO 4.19 l/min LVOT CI 1.94 L/min/m2 Pulmonic Valve Name Value Normal RVOT Doppler
[2022-06-10 16:15] LABS: Glucose Point of Care 138 mg/dl (65-105)
[2022-06-10 20:04] LABS: Glucose Point of Care 207 mg/dl (65-105)
[2022-06-11] VITALS (21 sets, daily range): BP systolic 96–107; BP diastolic 43–59; PULSE 61–92; RESP 14–23; TEMP 36.3–37.6; O2SAT 90–96
[2022-06-11] MEDS: ACETAMINOPHEN 325 MG TABLET 650 MG PO (00:07)
[2022-06-11 05:01] LABS: Basophils Percent Auto 0.6 % (0.2-1.2); Eosinophils Absolute Auto 0.1 K/mm3 (0-0.3); Eosinophils Percent Auto 1.1 % (0-4.4); Hematocrit 36.5 % (42.0-52.0); Hemoglobin 10.4 g/dL (14.0-18.0); Immature Granulocyte Absolute 0.01 K/mm3 (0.00-0.031); Immature Granulocyte Percent A 0.2 % (0-0.5); Lymphocytes Absolute Auto 1.63 K/mm3 (0.9-3.2); Lymphocytes Percent Auto 26.4 % (18.3-44.2); Mean Corpuscular HGB Conc 28.5 g/dl (32-36); Mean Corpuscular Hemoglobin 26.6 pg (26-34); Mean Corpuscular Volume 93.4 fl (80-100); Mean Platelet Volume 9.7 fl (7.4-10.4); Monocytes Absolute Auto 0.8 K/mm3 (0.1-0.6); Monocytes Percent Auto 13.1 % (2.6-8.5); Neutrophils Absolute Auto 3.6 K/mm3 (1.3-6.7); Neutrophils Percent Auto 58.6 % (45.5-73.1); Platelet Count Result 176 k/mm3 (150-375); Red Blood Count 3.91 M/mm3 (4.6-6.20); Red Cell Distribution Width 15.9 % (11.5-14.5); White Blood Count 6.2 K/mm3 (4.5-10.0)
[2022-06-11 05:09] LABS: Albumin Level 3.2 g/dL (3.5-5.1); Blood Urea Nitrogen 27 mg/dL (9-20); Calcium 7.9 mg/dL (8.4-10.2); Carbon Dioxide > 40 mmol/L (22-30); Chloride 91 mmol/L (98-107); Estimated Glomerular Filt Rate > 60; Glucose 129 mg/dL (65-110); Phosphorus 2.9 mg/dL (2.5-4.5); Potassium 3.8 mmol/L (3.4-5.0); Sodium 130 mmol/L (137-145)
[2022-06-11 05:38] LABS: Hypochromasia 2+ (NORMAL); Ovalocytes 1+ (NORMAL); Platelet Estimate Adequate (Adequate); Schistocytes None Seen (NORMAL); Target Cells 1+ (NORMAL)
[2022-06-11 08:20] LABS: Glucose Point of Care 123 mg/dl (65-105)
[2022-06-11] MEDS: APIXABAN 2.5 MG TABLET PO ×2 (08:59→21:21)
[2022-06-11] MEDS: carvediloL 6.25 MG TABLET PO ×2 (09:00→21:20)
[2022-06-11] MEDS: GABAPENTIN 300 MG CAPSULE 600 MG PO ×2 (09:00→16:43)
[2022-06-11] MEDS: FUROSEMIDE INJ 40 MG/4 ML VIAL IV PUSH (09:00)
[2022-06-11] MEDS: INSULIN ASPART (*BKC) 100 UNITS/ML SUB-Q (11:45)
[2022-06-11 11:46] LABS: Glucose Point of Care 262 mg/dl (65-105)
[2022-06-11 16:31] LABS: Glucose Point of Care 154 mg/dl (65-105)
--- NOTE | 2022-06-11 18:07 | PM.IMPN ---
Progress Note: A&P Assessment and Plan (1) Acute respiratory failure with hypoxia: Code(s): J96.01 - Acute respiratory failure with hypoxia Status: Acute Assessment and Plan: SpO2 was 84% on room air on arrival. Related to pulmonary edema and probably some component of underlying lung disease (PFTs from November 2021 noted). Pulmonary embolism is unlikely as he is on apixaban and states compliance with the same. Patient with worsening respiratory failure. CXR showing worsening pulmonary edema.?Also with hypercapnia so feel a component related to undiagnosed KOBI. Symptoms better. Tolerating BiPAP at night. Serum bicarb > 40. Still appears to have fluid overload. Continue to monitor. Continue the BiPAP at night. Will need apnealink at some point. Pulmonary consult. Diamox once. (2) Acute on chronic diastolic congestive heart failure: Code(s): I50.33 - Acute on chronic diastolic (congestive) heart failure Status: Acute Assessment and Plan: Etiology for acute exacerbation is not entirely clear though may be related to occasional missed Lasix doses. He has rare mild chest pressure though that seems to be more related to his shortness of breath and acute coronary syndrome seems unlikely. Feeling better. Cr stable. Echo showing EF 60-65% and Grade I diastolic dysfunction. Continue diuresis with Lasix but decreased frequency Close monitoring of I/O, daily weights, renal function, electrolytes. (3) Chest pressure: Code(s): R07.89 - Other chest pain Status: Acute Assessment and Plan: The patient with mid chest pressure related to feeling short of breath. It does not sound exertional and there are no other associated symptoms. Most likely related to CHF with increased work of breathing. PE less likely. Continue to monitor on telemetry. Echo showing no wall motion abnormalities (4) Essential (primary) hypertension: Code(s): I10 - Essential (primary) hypertension Status: Acute Assessment and Plan: Patient's blood pressure was reviewed on 06/11 Blood pressure soft at times. Parameters placed. Continue Lasix Will continue current medications. (5) Chronic atrial fibrillation: Code(s): I48.20 - Chronic atrial fibrillation, unspecified Status: Acute Assessment and Plan: He is rate controlled with chronic atrial fibrillation/flutter. Continue carvedilol for rate control. Continue apixaban for stroke prophylaxis (6) Type 2 diabetes mellitus with diabetic polyneuropathy: Code(s): E11.42 - Type 2 diabetes mellitus with diabetic polyneuropathy Status: Acute Assessment and Plan: A1c 9.0. The patient's blood glucose was reviewed on 06/11 Glucose elevated at times. Continue AccuCheks covering with sliding scale. Hypoglycemia protocol available as needed. Only on metformin at home. Continue to monitor. Plan Hyponatremia - Na noted. Follow for now. Subjective Date/time seen: 06/11/22 18:07 Interval history: 87yo male with cAFib, CHF and DM here for shortness of breath.? No CP or SOB. Eating okay. Toelrating BiPAP last night. Exam Narrative: AF 99/48 68 18 94% 4L Gen - NARD sitting at the side of the bed Chest - bibasilar inspiratory crackles, nml RR CV -irregularly irregular. S1-S2. Telemetry showing AFib with controlled rate. Abd -soft. Nontender. Positive bowel sounds. Ext - 1+ pedal edema Psych - Nml mood and affect Skin - Warm and dry. mild pink rash lower back Objective Data Vital Signs Vital Signs: Vital Signs - 24 hr 06/10/22 20:21 06/10/22 20:00 06/10/22 20:00 Temperature 98.6 F Pulse Rate 76 81 79 Respiratory Rate 20 Blood Pressure 97/56 L Pulse Oximetry 94 Oxygen Delivery Oxygen Flow Rate Fraction of Inspired Oxygen 06/10/22 20:00 06/10/22 22:00 06/10/22 23:19 Temperature 99.2 F Pulse Rate 87 84 Respiratory Rate 20 Blood Press
[2022-06-11 20:35] LABS: Glucose Point of Care 201 mg/dl (65-105)
[2022-06-11] MEDS: acetaZOLAMIDE SODIUM FOR INJ 500 MG VIAL 250 MG IV PUSH (21:21)
[2022-06-12] VITALS (15 sets, daily range): BP systolic 100–132; BP diastolic 34–68; PULSE 61–89; RESP 16–25; TEMP 36.2–37.1; O2SAT 92–100
[2022-06-12 05:03] LABS: Hemoglobin 10.7 g/dL (14.0-18.0); Mean Corpuscular HGB Conc 28.9 g/dl (32-36); Mean Corpuscular Hemoglobin 27.1 pg (26-34); Mean Corpuscular Volume 93.7 fl (80-100); Mean Platelet Volume 10.2 fl (7.4-10.4); Platelet Count Result 176 k/mm3 (150-375); Red Blood Count 3.95 M/mm3 (4.6-6.20); Red Cell Distribution Width 15.6 % (11.5-14.5); White Blood Count 6.9 K/mm3 (4.5-10.0)
[2022-06-12 05:18] LABS: Albumin Level 3.3 g/dL (3.5-5.1); Anion Gap 2 mmol/L (8-16); Blood Urea Nitrogen 23 mg/dL (9-20); Carbon Dioxide 37 mmol/L (22-30); Chloride 91 mmol/L (98-107); Estimated Glomerular Filt Rate > 60; Glucose 117 mg/dL (65-110); Phosphorus 2.8 mg/dL (2.5-4.5); Potassium 3.6 mmol/L (3.4-5.0); Sodium 130 mmol/L (137-145)
[2022-06-12 08:31] LABS: Glucose Point of Care 181 mg/dl (65-105)
--- NOTE | 2022-06-12 08:42 | PM.IMPN ---
Progress Note: A&P Assessment and Plan (1) Acute respiratory failure with hypoxia: Code(s): J96.01 - Acute respiratory failure with hypoxia Status: Acute Assessment and Plan: Secondary to pulmonary edema from heart failure as well as COPD, suspect underlying KOBI, continue BiPAP at night, will give Restoril to see if patient can keep BiPAP on as he has not been able to keep it on all night, once he is at a dry weight we will check an ApneaLink and consider consulting pulmonology (2) Acute on chronic diastolic congestive heart failure: Code(s): I50.33 - Acute on chronic diastolic (congestive) heart failure Status: Acute Assessment and Plan: Improving with diuresis, will increase Lasix to 40 mg IV q.8 hours, monitor response tomorrow Add 1800 mL fluid restriction Echo showing EF 60-65% and Grade I diastolic dysfunction (3) Chest pressure: Code(s): R07.89 - Other chest pain Status: Acute Assessment and Plan: Resolved, likely secondary to heart failure exacerbation compounded by COPD and respiratory failure (4) Essential (primary) hypertension: Code(s): I10 - Essential (primary) hypertension Status: Acute Assessment and Plan: Stable, monitor (5) Chronic atrial fibrillation: Code(s): I48.20 - Chronic atrial fibrillation, unspecified Status: Acute Assessment and Plan: Rate controlled, continue Eliquis and Coreg (6) Type 2 diabetes mellitus with diabetic polyneuropathy: Code(s): E11.42 - Type 2 diabetes mellitus with diabetic polyneuropathy Status: Acute Assessment and Plan: A1c 9.0. Continue AccuCheks covering with sliding scale. Hypoglycemia protocol available as needed. Only on metformin at home. Continue to monitor. (7) Hyponatremia: Code(s): E87.1 - Hypo-osmolality and hyponatremia Status: Acute Assessment and Plan: Stable at 130, likely secondary to diuresis, will add fluid restriction and monitor closely (8) Neuropathy: Code(s): G62.9 - Polyneuropathy, unspecified Status: Acute Assessment and Plan: Suspect chronic neuropathy due to patient's report of longstanding bilateral foot pain, worsened with edema Already on gabapentin, will give [place] as needed until patient's edema improves Plan DVT prophylaxis with Eliquis GI prophylaxis with PPI Code status DNR Subjective Date/time seen: 06/12/22 08:42 Interval history: 87yo male with cAFib, CHF and DM here for shortness of breath.? No overnight events noted. No chest pain or shortness of breath. No nausea, vomiting or diarrhea. No fevers or chills. Unable to sleep on BiPAP. Also complaining of worsening foot pain. He states his feet always hurt him, but they have been much worse lately. Also requesting sleeping pill so he can hopefully sleep using the BiPAP machine. States he is having good urine output. Review of Systems Review of Systems: 12 point review of systems was assessed and was negative except as noted in the HPI Exam Narrative: General: No acute distress, alert and oriented per baseline, sitting up, comfortable on 4 L nasal cannula HEENT: Atraumatic, normocephalic, mucous membranes moist CV: Irregularly irregular, S1, S2, no murmur Lungs: Diminished throughout, no wheezes, some scattered crackles at the bases Abdomen: Soft, nontender, nondistended Extremities: 2+ pitting edema bilateral lower extremity, up to mid tibia Skin: No rashes noted, no lesions or wounds seen Psych: Euthymic, normal affect Objective Data Vital Signs Vital Signs: Vital Signs - 24 hr 06/11/22 09:00 06/11/22 10:00 06/11/22 11:50 Temperature 98.6 F Pulse Rate 73 78 89 Respiratory Rate 14 Blood Pressure 96/43 L Pulse Oximetry 90 Oxygen Delivery Oxygen Flow Rate Fraction of Inspired Oxygen 06/11/22 12:06 06/11/22 12:06 06/11/22 14:00 Temperature Pulse R
[2022-06-12] MEDS: APIXABAN 2.5 MG TABLET PO ×2 (09:25→20:00)
[2022-06-12] MEDS: GABAPENTIN 300 MG CAPSULE 600 MG PO ×2 (09:25→18:28)
[2022-06-12] MEDS: carvediloL 6.25 MG TABLET PO ×2 (09:25→20:00)
[2022-06-12] MEDS: FUROSEMIDE INJ 40 MG/4 ML VIAL IV PUSH ×3 (09:26→21:47)
[2022-06-12] MEDS: polyethylene glycoL 3350 17 GM POWD.PACK PO (09:26)
[2022-06-12 12:02] LABS: Glucose Point of Care 201 mg/dl (65-105)
--- NOTE | 2022-06-12 15:57 | PCPTNOTE ---
Attempted PT evaluation, pt refused despite encouragement to participate. RN aware.
[2022-06-12 16:44] LABS: Glucose Point of Care 183 mg/dl (65-105)
[2022-06-12 19:40] LABS: Glucose Point of Care 163 mg/dl (65-105)
[2022-06-12] MEDS: TEMAZEPAM (*CRX) 15 MG CAPSULE PO (20:00)
[2022-06-13] VITALS (19 sets, daily range): BP systolic 108–135; BP diastolic 57–85; PULSE 60–108; RESP 16–22; TEMP 36.1–36.9; O2SAT 90–99
[2022-06-13] MEDS: FUROSEMIDE INJ 40 MG/4 ML VIAL IV PUSH ×3 (05:41→22:52)
[2022-06-13 07:46] LABS: Glucose Point of Care 119 mg/dl (65-105)
[2022-06-13] MEDS: APIXABAN 2.5 MG TABLET PO ×2 (09:00→20:33)
[2022-06-13] MEDS: carvediloL 6.25 MG TABLET PO ×2 (09:00→20:32)
[2022-06-13] MEDS: GABAPENTIN 300 MG CAPSULE 600 MG PO ×2 (09:00→18:35)
[2022-06-13] MEDS: polyethylene glycoL 3350 17 GM POWD.PACK PO (09:01)
--- NOTE | 2022-06-13 09:57 | PM.IMPN ---
Progress Note: A&P Assessment and Plan (1) Acute respiratory failure with hypoxia: Code(s): J96.01 - Acute respiratory failure with hypoxia Status: Acute Assessment and Plan: Secondary to pulmonary edema from heart failure as well as COPD, suspect underlying KOBI, continue BiPAP at night, patient was given Restoril last night which seemed to help him keep his BiPAP on, however, he experienced somnolence in the morning so this was discontinued Attempt to continue to wean oxygen, still on 4 L once he is at a dry weight we will check an ApneaLink and consider consulting pulmonology (2) Acute on chronic diastolic congestive heart failure: Code(s): I50.33 - Acute on chronic diastolic (congestive) heart failure Status: Acute Assessment and Plan: Much improved with increased diuresis and fluid restriction, check chest x-ray, if congestion is significantly improved, will discontinue fluid restriction and deescalate diuresis Echo showing EF 60-65% and Grade I diastolic dysfunction (3) Chest pressure: Code(s): R07.89 - Other chest pain Status: Acute Assessment and Plan: Resolved, likely secondary to heart failure exacerbation compounded by COPD and respiratory failure (4) Essential (primary) hypertension: Code(s): I10 - Essential (primary) hypertension Status: Acute Assessment and Plan: Stable, monitor (5) Chronic atrial fibrillation: Code(s): I48.20 - Chronic atrial fibrillation, unspecified Status: Acute Assessment and Plan: Rate controlled, continue Eliquis and Coreg (6) Type 2 diabetes mellitus with diabetic polyneuropathy: Code(s): E11.42 - Type 2 diabetes mellitus with diabetic polyneuropathy Status: Acute Assessment and Plan: A1c 9.0. Continue AccuCheks covering with sliding scale. Hypoglycemia protocol available as needed. Only on metformin at home. Continue to monitor. (7) Hyponatremia: Code(s): E87.1 - Hypo-osmolality and hyponatremia Status: Acute Assessment and Plan: Essentially resolved, 135 today (8) Neuropathy: Code(s): G62.9 - Polyneuropathy, unspecified Status: Acute Assessment and Plan: Acute on chronic neuropathy secondary to worsening edema, [place] as needed, much improved (9) UTI (urinary tract infection): Code(s): N39.0 - Urinary tract infection, site not specified Status: Acute Assessment and Plan: Resolving on Rocephin, culture positive for Klebsiella, will switch to cefdinir today to complete a total of 7 days, end date June 16 Plan DVT prophylaxis with Eliquis GI prophylaxis with PPI Code status DNR Subjective Date/time seen: 06/13/22 09:57 Interval history: 87yo male with cAFib, CHF and DM here for shortness of breath.? No overnight events noted. No chest pain or shortness of breath. No nausea, vomiting or diarrhea. No fevers or chills. Able to sleep better with a Restoril, somewhat somnolent the next day, however. Foot pain seems improved with [place]. Review of Systems Review of Systems: 12 point review of systems was assessed and was negative except as noted in the HPI Exam Narrative: General: No acute distress, somnolent, resting on 4 L nasal cannula HEENT: Atraumatic, normocephalic, mucous membranes moist CV: Irregularly irregular, S1, S2, no murmur Lungs: Clear to auscultation bilaterally, somewhat diminished at bases Abdomen: Soft, nontender, nondistended Extremities: Trace pitting edema bilateral lower extremity Skin: No rashes noted, no lesions or wounds seen Psych: Unable to assess, somewhat somnolent Objective Data Vital Signs Vital Signs: Vital Signs - 24 hr 06/12/22 12:00 06/12/22 16:00 06/12/22 10:00 Temperature 97.5 F L 97.6 F Pulse Rate 62 84 89 Respiratory Rate 20 18 Blood Pressure 101/50 L 111/63 Pulse Oximetry 95 99 Oxygen Delivery Oxygen
[2022-06-13 10:55] LABS: Basophils Absolute Auto 0.1 K/mm3 (0.0-0.1); Basophils Percent Auto 1.1 % (0.2-1.2); Eosinophils Absolute Auto 0.1 K/mm3 (0-0.3); Eosinophils Percent Auto 2.2 % (0-4.4); Hematocrit 39.9 % (42.0-52.0); Hemoglobin 11.5 g/dL (14.0-18.0); Immature Granulocyte Absolute 0.01 K/mm3 (0.00-0.031); Immature Granulocyte Percent A 0.2 % (0-0.5); Lymphocytes Absolute Auto 1.17 K/mm3 (0.9-3.2); Lymphocytes Percent Auto 18.1 % (18.3-44.2); Mean Corpuscular HGB Conc 28.8 g/dl (32-36); Mean Corpuscular Hemoglobin 26.7 pg (26-34); Mean Corpuscular Volume 92.6 fl (80-100); Mean Platelet Volume 10.3 fl (7.4-10.4); Monocytes Absolute Auto 0.7 K/mm3 (0.1-0.6); Neutrophils Absolute Auto 4.4 K/mm3 (1.3-6.7); Neutrophils Percent Auto 67.4 % (45.5-73.1); Platelet Count Result 200 k/mm3 (150-375); Red Blood Count 4.31 M/mm3 (4.6-6.20); Red Cell Distribution Width 15.9 % (11.5-14.5); White Blood Count 6.5 K/mm3 (4.5-10.0)
[2022-06-13 11:11] LABS: Alanine Aminotransferase 14 U/L (6-50); Albumin Level 3.5 g/dL (3.5-5.1); Alkaline Phosphatase 81 U/L (38-126); Aspartate Amino Transferase 23 U/L (17-59); Bilirubin,Total 0.8 mg/dL (0.2-1.3); Blood Urea Nitrogen 23 mg/dL (9-20); Calcium 8.4 mg/dL (8.4-10.2); Carbon Dioxide > 40 mmol/L (22-30); Chloride 91 mmol/L (98-107); Estimated CRCL calculation 58 ml/min; Estimated Glomerular Filt Rate > 60; Glucose 205 mg/dL (65-110); Potassium 3.4 mmol/L (3.4-5.0); Sodium 135 mmol/L (137-145)
[2022-06-13 11:54] LABS: Glucose Point of Care 162 mg/dl (65-105)
[2022-06-13] MEDS: CEFDINIR 300 MG CAPSULE PO ×2 (12:33→20:33)
[2022-06-13] MEDS: POTASSIUM CHLORIDE 20 MEQ TABLET 40 MEQ PO (14:29)
[2022-06-13 16:26] LABS: Glucose Point of Care 193 mg/dl (65-105)
[2022-06-13] MEDS: HYDROcodone/acetaminophen (*CRX) 5-325 MG TABLET 1 TAB PO (18:34)
[2022-06-13 20:26] LABS: Glucose Point of Care 183 mg/dl (65-105)
[2022-06-13] MEDS: traZODone HCL 50 MG TABLET PO (20:33)
[2022-06-14] VITALS (14 sets, daily range): BP systolic 92–117; BP diastolic 48–63; PULSE 60–121; RESP 18–21; TEMP 36.3–36.8; O2SAT 87–98
[2022-06-14] MEDS: HYDROcodone/acetaminophen (*CRX) 5-325 MG TABLET 1 TAB PO (05:07)
[2022-06-14] MEDS: FUROSEMIDE INJ 40 MG/4 ML VIAL IV PUSH ×3 (05:08→22:20)
[2022-06-14 05:11] LABS: Basophils Absolute Auto 0.1 K/mm3 (0.0-0.1); Basophils Percent Auto 0.8 % (0.2-1.2); Eosinophils Absolute Auto 0.1 K/mm3 (0-0.3); Eosinophils Percent Auto 1.3 % (0-4.4); Hemoglobin 11.4 g/dL (14.0-18.0); Immature Granulocyte Absolute 0.02 K/mm3 (0.00-0.031); Immature Granulocyte Percent A 0.3 % (0-0.5); Lymphocytes Absolute Auto 1.24 K/mm3 (0.9-3.2); Lymphocytes Percent Auto 17.5 % (18.3-44.2); Mean Corpuscular HGB Conc 28.5 g/dl (32-36); Mean Corpuscular Hemoglobin 26.7 pg (26-34); Mean Corpuscular Volume 93.7 fl (80-100); Mean Platelet Volume 9.9 fl (7.4-10.4); Monocytes Absolute Auto 0.7 K/mm3 (0.1-0.6); Neutrophils Percent Auto 70.1 % (45.5-73.1); Platelet Count Result 195 k/mm3 (150-375); Red Blood Count 4.27 M/mm3 (4.6-6.20); Red Cell Distribution Width 16.1 % (11.5-14.5); White Blood Count 7.1 K/mm3 (4.5-10.0)
[2022-06-14 05:28] LABS: Alanine Aminotransferase 13 U/L (6-50); Albumin Level 3.4 g/dL (3.5-5.1); Alkaline Phosphatase 80 U/L (38-126); Anion Gap 5 mmol/L (8-16); Aspartate Amino Transferase 22 U/L (17-59); Bilirubin,Total 0.9 mg/dL (0.2-1.3); Blood Urea Nitrogen 26 mg/dL (9-20); Calcium 8.4 mg/dL (8.4-10.2); Carbon Dioxide 39 mmol/L (22-30); Chloride 95 mmol/L (98-107); Estimated CRCL calculation 53 ml/min; Estimated Glomerular Filt Rate > 60; Glucose 141 mg/dL (65-110); Potassium 4.2 mmol/L (3.4-5.0); Sodium 139 mmol/L (137-145)
[2022-06-14 05:49] LABS: Anisocytosis 1+ (NORMAL); Hypochromasia 2+ (NORMAL); Platelet Estimate Adequate (Adequate); Schistocytes None Seen (NORMAL)
[2022-06-14 07:55] LABS: Glucose Point of Care 141 mg/dl (65-105)
[2022-06-14] MEDS: CEFDINIR 300 MG CAPSULE PO ×2 (08:07→20:30)
[2022-06-14] MEDS: ACETAMINOPHEN 325 MG TABLET 650 MG PO (08:07)
[2022-06-14] MEDS: GABAPENTIN 300 MG CAPSULE 600 MG PO (08:07)
[2022-06-14] MEDS: polyethylene glycoL 3350 17 GM POWD.PACK PO (08:07)
[2022-06-14] MEDS: carvediloL 6.25 MG TABLET PO ×2 (08:07→20:30)
[2022-06-14] MEDS: APIXABAN 2.5 MG TABLET PO ×2 (08:08→20:30)
--- NOTE | 2022-06-14 09:38 | PM.IMPN ---
Progress Note: A&P Assessment and Plan (1) Acute respiratory failure with hypoxia: Code(s): J96.01 - Acute respiratory failure with hypoxia Status: Acute Assessment and Plan: Secondary to pulmonary edema from heart failure as well as COPD, suspect underlying KOBI, continue BiPAP at night, patient was given Restoril last night which seemed to help him keep his BiPAP on, however, he experienced somnolence in the morning so this was discontinued Attempt to continue to wean oxygen, increased to 5L despite improving pulm congestion on CXR, likely needs BIPAP therapy fdc, pulm consult ordered and pending Once he is at a dry weight we will check an ApneaLink (2) Acute on chronic diastolic congestive heart failure: Code(s): I50.33 - Acute on chronic diastolic (congestive) heart failure Status: Acute Assessment and Plan: Much improved with increased diuresis and fluid restriction, CXR minimally improved from 06/13, continue fluid restriction and diuresis Echo showing EF 60-65% and Grade I diastolic dysfunction Creat/BUN are starting to climb, will back off on diuresis tomorrow, switch to po (3) Chest pressure: Code(s): R07.89 - Other chest pain Status: Acute Assessment and Plan: Resolved, likely secondary to heart failure exacerbation compounded by COPD and respiratory failure (4) Essential (primary) hypertension: Code(s): I10 - Essential (primary) hypertension Status: Acute Assessment and Plan: Stable, monitor (5) Chronic atrial fibrillation: Code(s): I48.20 - Chronic atrial fibrillation, unspecified Status: Acute Assessment and Plan: Rate controlled, continue Eliquis and Coreg Somewhat tachycardic today, monitor for now (6) Type 2 diabetes mellitus with diabetic polyneuropathy: Code(s): E11.42 - Type 2 diabetes mellitus with diabetic polyneuropathy Status: Acute Assessment and Plan: A1c 9.0. Continue AccuCheks covering with sliding scale. Hypoglycemia protocol available as needed. Only on metformin at home. Continue to monitor. (7) Hyponatremia: Code(s): E87.1 - Hypo-osmolality and hyponatremia Status: Acute Assessment and Plan: Resolved, 139 on 06/14 (8) Neuropathy: Code(s): G62.9 - Polyneuropathy, unspecified Status: Acute Assessment and Plan: Acute on chronic neuropathy secondary to worsening edema, [place] as needed, much improved (9) UTI (urinary tract infection): Code(s): N39.0 - Urinary tract infection, site not specified Status: Acute Assessment and Plan: Resolving on Rocephin, culture positive for Klebsiella, will switch to cefdinir today to complete a total of 7 days, end date June 16 (10) Musculoskeletal pain of right upper extremity: Code(s): M79.601 - Pain in right arm Status: Acute Assessment and Plan: xray or right elbow, concern for cubital tunnel syndrome? Plan DVT prophylaxis with Eliquis GI prophylaxis with PPI Code status DNR Subjective Date/time seen: 06/14/22 09:38 Interval history: 87yo male with cAFib, CHF and DM here for shortness of breath.? No overnight events noted. No chest pain or shortness of breath. No nausea, vomiting or diarrhea. No fevers or chills. Patient complaining of RUE pain starting at the elbow and radiating down into the hand, preventing him from picking up his coffee cup due to pain, not weakness. He denies numbness/paresthesias. Review of Systems Review of Systems: 12 point review of systems was assessed and was negative except as noted in the HPI Exam Narrative: General: No acute distress, resting on 4 L nasal cannula HEENT: Atraumatic, normocephalic, mucous membranes moist CV: Irregularly irregular, S1, S2, no murmur Lungs: Clear to auscultation bilaterally, somewhat diminished at bases Abdomen:
--- NOTE | 2022-06-14 10:51 | PCNWS ---
Weekly nutritional screen. Patient is tolerating current diet with adequate intake. No weight loss reported. No nutritional needs at this time.
[2022-06-14 11:34] LABS: Glucose Point of Care 173 mg/dl (65-105)
--- NOTE | 2022-06-14 11:51 | PM.CNPUL ---
Assessment and Plan Assessment and plan (1) Acute exacerbation of CHF (congestive heart failure): Code(s): I50.9 - Heart failure, unspecified Status: Acute (2) Chronic atrial fibrillation: Code(s): I48.20 - Chronic atrial fibrillation, unspecified Status: Acute (3) Chronic diastolic CHF (congestive heart failure): Code(s): I50.32 - Chronic diastolic (congestive) heart failure Status: Acute (4) Emphysema lung: Code(s): J43.9 - Emphysema, unspecified Status: Acute Assessment and Plan: this 87-year-old man with a history of congestive heart failure, left ventricular diastolic dysfunction, history of atrial fibrillation, history of a coronary artery bypass grafting, status post pacemaker implantation presented with a chronic shortness of breath, lower extremity edema, acute on chronic hypercapnic respiratory failure. Patient has been treated with diuretics for possible congestive heart failure. He continues to have shortness of breath less than before. Gas exchange has improved as shown by the last ABG drawn 3 days ago. previous chest CT showed bilateral centrilobular emphysema but pulmonary function testing done last summer showed restrictive pattern and no evidence of obstructive airway disease. The patient's FEV1 was measured at 1.64. In addition he had decreased lung diffusion capacity at 47% predicted. The restrictive defect is in part explained by patient's suboptimal effort as shown by volume versus time tracing. Patient has not been treated for COPD exacerbation. It is very likely that the patient's hypercapnic respiratory failure is related to sleep disordered breathing/ obesity rather than COPD. His FEV1 is 1.64 which by itself is not low enough to account for hypercapnic respiratory failure. He also has history of left ventricular diastolic dysfunction, with severe enlargement of the left atrium on last echocardiogram. Pulmonary hypertension is likely related to left ventricular diastolic dysfunction and sleep disordered breathing. Patient's did confirm respiratory pauses at night. Plan: Will get a chest CT to assess for lung congestion, possible interstitial lung disease. Patient does not seem to be tolerating BiPAP support. Will consider further workup with sleep study, repeat of arterial blood gases. Further recommendation based upon the results of chest CT. (5) Presence of aortocoronary bypass graft: Code(s): Z95.1 - Presence of aortocoronary bypass graft Status: Acute History of Present Illness History of Present Illness Consult date: 01/27/23 Chief complaint: chf exacerbation,hypoxia Narrative: This 87-year-old man presented with progressively increasing shortness of breath and lower extremity edema of several weeks duration. The patient has a history of obesity, left ventricular diastolic dysfunction, history of coronary artery disease status post coronary artery bypass grafting and 208, history of atrial fibrillation. In addition he has history of emphysema as shown by previous chest CT. patient has not been on any treatment for respiratory disease. According to his was also present at the bedside the patient has had shortness of breath with activities at home like going to the bathroom. Also noticed lower extremity edema for several weeks. The patient has chronic orthopnea and many times he sleeps in a recliner. He has had mild cough but has not changed lately. He is not on any treatment for respiratory disease and he never had a sleep study. He denied having fever chills hemoptysis night sweats. Initial diagnostic studies showed acute on chronic hypercapnic respiratory failure, possible lung congestion related to congestive heart failure. Echocardiogram was of poor quality but showed severely enlarged left atrium. EF did not appear to be decreased. The patient has been treated with diuretics with no significant improvement. On last b
--- NOTE | 2022-06-14 11:57 | PCOTNOTE ---
Patient refused OT at this time, reported bathing earlier with COMMUNITY SERVICES MANAGER. Patient's in agreement. Patient refused to participate in oral care or UE exercises at this time despite encouragement to participate. Patient not seen for OT at this time.
[2022-06-14] MEDS: ACETAMINOPHEN 500 MG TABLET 1000 MG PO ×2 (14:14→22:20)
[2022-06-14 15:49] LABS: Glucose Point of Care 181 mg/dl (65-105)
[2022-06-14 20:32] LABS: Glucose Point of Care 146 mg/dl (65-105)
[2022-06-15] VITALS (11 sets, daily range): BP systolic 102–113; BP diastolic 50–55; PULSE 60–79; RESP 16–27; TEMP 36.1–36.8; O2SAT 92–97
[2022-06-15] MEDS: oxyCODONE HCL (*CRX) 5 MG TAB IR PO (00:21)
[2022-06-15] MEDS: ACETAMINOPHEN 500 MG TABLET 1000 MG PO ×3 (05:06→21:36)
[2022-06-15] MEDS: FUROSEMIDE INJ 40 MG/4 ML VIAL IV PUSH (05:06)
[2022-06-15 05:11] LABS: Basophils Absolute Auto 0.1 K/mm3 (0.0-0.1); Eosinophils Absolute Auto 0.2 K/mm3 (0-0.3); Eosinophils Percent Auto 2.6 % (0-4.4); Hematocrit 38.8 % (42.0-52.0); Hemoglobin 10.9 g/dL (14.0-18.0); Immature Granulocyte Absolute 0.02 K/mm3 (0.00-0.031); Immature Granulocyte Percent A 0.3 % (0-0.5); Lymphocytes Absolute Auto 1.37 K/mm3 (0.9-3.2); Lymphocytes Percent Auto 23.9 % (18.3-44.2); Mean Corpuscular HGB Conc 28.1 g/dl (32-36); Mean Platelet Volume 10.6 fl (7.4-10.4); Monocytes Absolute Auto 0.6 K/mm3 (0.1-0.6); Monocytes Percent Auto 9.9 % (2.6-8.5); Neutrophils Absolute Auto 3.6 K/mm3 (1.3-6.7); Neutrophils Percent Auto 62.3 % (45.5-73.1); Platelet Count Result 180 k/mm3 (150-375); Red Blood Count 4.04 M/mm3 (4.6-6.20); White Blood Count 5.7 K/mm3 (4.5-10.0)
[2022-06-15 05:23] LABS: Alanine Aminotransferase 13 U/L (6-50); Albumin Level 3.4 g/dL (3.5-5.1); Alkaline Phosphatase 77 U/L (38-126); Anion Gap 3 mmol/L (8-16); Aspartate Amino Transferase 24 U/L (17-59); Bilirubin,Total 1.1 mg/dL (0.2-1.3); Blood Urea Nitrogen 33 mg/dL (9-20); Calcium 8.3 mg/dL (8.4-10.2); Carbon Dioxide 39 mmol/L (22-30); Chloride 91 mmol/L (98-107); Estimated CRCL calculation 48 ml/min; Estimated Glomerular Filt Rate > 60; Glucose 134 mg/dL (65-110); Potassium 3.7 mmol/L (3.4-5.0); Sodium 133 mmol/L (137-145)
[2022-06-15 05:52] LABS: Platelet Estimate Adequate (Adequate)
[2022-06-15 05:53] LABS: Anisocytosis 2+ (NORMAL); Hypochromasia 1+ (NORMAL); Macrocytosis 2+ (NORMAL); Microcytosis 1+ (NORMAL); Stomatocytes 1+ (NORMAL)
[2022-06-15 05:54] LABS: Schistocytes 1+ (NORMAL)
[2022-06-15 08:09] LABS: Glucose Point of Care 128 mg/dl (65-105)
[2022-06-15] MEDS: CEFDINIR 300 MG CAPSULE PO ×2 (08:48→21:36)
[2022-06-15] MEDS: carvediloL 6.25 MG TABLET PO ×2 (08:48→21:36)
[2022-06-15] MEDS: APIXABAN 2.5 MG TABLET PO ×2 (08:48→21:36)
[2022-06-15] MEDS: polyethylene glycoL 3350 17 GM POWD.PACK PO (08:49)
[2022-06-15] MEDS: GABAPENTIN 300 MG CAPSULE 600 MG PO ×2 (08:49→16:30)
--- NOTE | 2022-06-15 09:03 | PM.IMPN ---
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 Patient is requesting to try different sleeping pill to keep his BiPAP on. Will give a dose of Ativan tonight and assess response. Attempt to continue to wean oxygen, increased to 5L despite improving pulm congestion on CXR, likely needs BIPAP therapy group home, pulm consult appreciated Will need BiPAP at home (2) Acute on chronic diastolic congestive heart failure: Code(s): I50.33 - Acute on chronic diastolic (congestive) heart failure Status: Acute Assessment and Plan: Much improved with increased diuresis and fluid restriction, CXR minimally improved from 06/13, continue fluid restriction and diuresis Echo showing EF 60-65% and Grade I diastolic dysfunction Creat/BUN are starting to climb, switch to po diuresis today and monitor response (3) Chest pressure: Code(s): R07.89 - Other chest pain Status: Acute Assessment and Plan: Resolved, likely secondary to heart failure exacerbation compounded by COPD and respiratory failure (4) Essential (primary) hypertension: Code(s): I10 - Essential (primary) hypertension Status: Acute Assessment and Plan: Stable, monitor (5) Chronic atrial fibrillation: Code(s): I48.20 - Chronic atrial fibrillation, unspecified Status: Acute Assessment and Plan: Rate controlled, continue Eliquis and Coreg Tachycardia resolved today (6) Type 2 diabetes mellitus with diabetic polyneuropathy: Code(s): E11.42 - Type 2 diabetes mellitus with diabetic polyneuropathy Status: Acute Assessment and Plan: A1c 9.0. Continue AccuCheks covering with sliding scale. Hypoglycemia protocol available as needed. Only on metformin at home. Continue to monitor. (7) Hyponatremia: Code(s): E87.1 - Hypo-osmolality and hyponatremia Status: Acute Assessment and Plan: Resolved, 139 on 06/14 (8) Neuropathy: Code(s): G62.9 - Polyneuropathy, unspecified Status: Acute Assessment and Plan: Acute on chronic neuropathy secondary to worsening edema, [place] as needed, much improved (9) UTI (urinary tract infection): Code(s): N39.0 - Urinary tract infection, site not specified Status: Acute Assessment and Plan: Resolving on Rocephin, culture positive for Klebsiella, will switch to cefdinir today to complete a total of 7 days, end date June 16 (10) Radial head fracture: Code(s): S52.123A - Displaced fracture of head of unspecified radius, initial encounter for closed fracture Status: Deleted Assessment and Plan: Appreciate orthopedic consultation, unsure of etiology to severe right upper extremity pain with inability to hold a coffee cup at this time Plan DVT prophylaxis with Eliquis GI prophylaxis with PPI Code status DNR Subjective Date/time seen: 06/15/22 09:03 Interval history: 87yo male with cAFib, CHF and DM here for shortness of breath.? No overnight events noted. No chest pain or shortness of breath. No nausea, vomiting or diarrhea. No fevers or chills. Patient still with continued pain in his right elbow, so significant that he is unable to hold a coffee cup. Patient is very eager to go home and thinks he will heal quickly there. He really hates wearing the BiPAP machine, but understands that that is the main treatment for his condition. Review of Systems Review of Systems: 12 point review of systems was assessed and jose ramon
--- NOTE | 2022-06-15 10:59 | PM.PNPUL ---
Progress Note: A&P Assessment and Plan (1) Acute exacerbation of CHF (congestive heart failure): Code(s): I50.9 - Heart failure, unspecified Status: Acute (2) Acute respiratory failure with hypoxia: Code(s): J96.01 - Acute respiratory failure with hypoxia Status: Acute Assessment and Plan: this 87-year-old man with a history of congestive heart failure, left ventricular diastolic dysfunction, history of atrial fibrillation,? history of a coronary artery bypass grafting, status post pacemaker implantation presented with a chronic shortness of breath, lower extremity edema,? acute on chronic hypercapnic respiratory failure.? Patient has been treated with diuretics for possible congestive heart failure.? He continues to have shortness of breath less than before.? Gas exchange has improved as shown by the last ABG drawn 3 days ago. ? previous chest CT showed bilateral centrilobular emphysema but pulmonary function testing done last summer showed restrictive pattern and no evidence of obstructive airway disease.? The patient's FEV1 was measured at 1.64.? In addition he had decreased lung diffusion capacity at 47% predicted. ? The restrictive defect is in part explained by patient's suboptimal effort as shown by volume versus time tracing.? Patient has not been treated for COPD exacerbation.? Chest CT done yesterday showed centrilobular emphysema as before, no evidence of parenchymal lung disease such as congestion or interstitial lung disease, large pulmonary arteries suggestive of pulmonary hypertension. The patient's chronic hypercapnic respiratory failure is most likely related to obesity hypoventilation with chronic hypoxemia and development of pulmonary hypertension. Patient tolerated BiPAP support last night. I discussed further management with the patient. I suggested home ventilatory support for chronic hypercapnic respiratory failure. A patient is not willing to consider home ventilatory support. BiPAP with AVAPS cannot be used due to its low pressure limit and minimal flow capacity. Device with a backup battery for mobility and alarms for safety is necessary for this patient. Will request home ventilatory support Friday morning. continue with the BiPAP support at this point. Repeat blood gases. Consider decreasing Lasix. (3) Acute on chronic diastolic congestive heart failure: Code(s): I50.33 - Acute on chronic diastolic (congestive) heart failure Status: Acute (4) Chronic atrial fibrillation: Code(s): I48.20 - Chronic atrial fibrillation, unspecified Status: Acute (5) Hypoxia: Code(s): R09.02 - Hypoxemia Status: Acute (6) Emphysema lung: Code(s): J43.9 - Emphysema, unspecified Status: Acute Subjective Date/time seen: 06/15/22 10:59 Interval history: Patient has no new respiratory symptoms. Anxious to go home. Used BiPAP support last night. Appeared little drowsy this a.m while sitting in chair Review of Systems Review of Systems: All systems reviewed & are unremarkable except as noted in HPI and below ( HPI and below.) Exam Narrative: GENERAL APPEARANCE: Well developed, well nourished, alert and cooperative, and appears to be in Mild respiratory distress while seated in chair and breathing supplemental oxygen via nasal cannula SKIN: Inspection of the skin reveals no rashes, ulcerations or petechiae. HEENT: Sclerae anicteric and conjunctivae pink and moist. Extraocular movements were intact and pupils were equal, round. oral mucosa dry, edentulous CHEST: Normal AP diameter and normal contour without any kyphoscoliosis. LUNGS: crackles at lung bases posteriorly no wheezing CARDIAC: There was a regular rate and rhythm without any murmurs. ABDOMEN: Soft and nontender with normal bowel sounds. There was no organomegaly. LYMPH NODES: No lymphadenopathy was appreciated in the neck EXTREMITIES: No cyanosis, clubbing 1+ pedal edema. RAMON
--- NOTE | 2022-06-15 11:36 | PM.CNOR ---
Assessment and Plan Assessment and plan (1) Right elbow pain: Code(s): M25.521 - Pain in right elbow Status: Acute Plan 87-year-old male with painful right elbow. No injury prior to the onset of this. I do not believe he has a radial head fracture. Instead he likely had either hemarthrosis or perhaps a gout flare. No history of gout. Uric acid ordered. Less likely is septic joint. Currently on IV antibiotics. Continue with Tylenol for pain relief. For can use ice on the elbow as well. History of Present Illness HPI Consult date: 06/15/22 Consult reason: joint pain (Right elbow) Chief complaint: chf exacerbation,hypoxia Narrative: 87-year-old male was shortness of breath. He says for the last four days he has had soreness in his right elbow. Has limited use of his left side particularly his left arm because of stroke. Does use a walker as a gait aid. Does not recall recent injury to the right elbow. Review of Systems Review of Systems: All systems reviewed & are unremarkable except as noted in HPI and below ( HPI and below.) [facility] Past Medical History Medical History Abdominal aortic aneurysm Noted on CT in 01/2019. Abnormal pulmonary function test (11/2021) PFTs show mild restriction with decreased diffusion and suggestion of obstruction. the combination of restriction low DLCO can be seen in interstitial lung disease and pneumonitis and a combination of restriction, low DLCO, and obstruction can be seen heart failure, sarcoidosis, asbestosis. Study was not consistent with emphysema however restriction can be mass by obstruction. Aortic atherosclerosis Noted on CT in 01/2019. Benign prostatic hyperplasia Cerebrovascular accident No residual deficit. Chronic anticoagulation Chronic atrial fibrillation Coronary artery disease Status post five-vessel bypass. Diabetic peripheral neuropathy Diastolic congestive heart failure Gastroesophageal reflux disease History of peptic ulcer Ischemic cardiomyopathy Osteoarthritis Paroxysmal atrial flutter Peripheral vascular disease Renal artery stenosis Noted on CT in 01/2019. Sick sinus syndrome Status post permanent pacemaker insertion, Biotronik. Transient ischemic attack Type 2 diabetes mellitus Surgical History Surgical History History of bilateral cataract extraction History of five vessel coronary artery bypass (2007) History of inguinal hernia repair History of permanent cardiac pacemaker placement (2016) Family History Family History Other Congestive heart failure Diabetes mellitus Social History Social History (Updated 06/08/22 @ 13:18 by Leigha Linares PA-C) Social History: Surrogate decision maker: Ewa Aguilar, . Code status: Full code. Smoking packs per day: 1 Smoking cigarettes per day: 20.0 Years smoked: 40 Smoking pack-years: 40.00 Smoking status: Former smoker Second hand tobacco smoke exposure: No Smoking end date: 05/19/69 Alcohol intake: never Substance use: never Substance use type: does not use Lack of Transportation: No Lack of Food: Never True Current Housing: I Have Housing Concerned About Future Housing: No Difficulty Paying Gas/Electric Bills: No Difficulty Paying for Meds: No Currently Unemployed: No Education: Decline to Answer Difficulty w/ Childcare or Family Care: No Living arrangements: with family Additional living arrangements comments: The patient lives with his in [place]. Occupation/Education: retired Additional occupation/education comments: Retired. Spiritual care concerns: No Agree to blood products: Yes Meds Home Medications and Allergies Home Medications Medication Instructions Recorded Confirmed Type apixaban 2.5 mg tablet (Eliquis) 2.5 mg PO
[2022-06-15 11:40] LABS: Glucose Point of Care 198 mg/dl (65-105)
[2022-06-15 15:47] LABS: Uric Acid 10.8 mg/dL (3.5-8.5)
[2022-06-15 16:22] LABS: Glucose Point of Care 190 mg/dl (65-105)
--- NOTE | 2022-06-15 18:43 | PC.NURSE ---
This patient, Stephanie Lakhani Lauren , was received from [facility] on 06/15/22 at 1844. Patient/family oriented to unit policies and routines
--- NOTE | 2022-06-15 18:49 | PC.NURSE ---
This patient, Stephanie Aguilar Jr., was transferred to [facility] on 06/15/22 at 1849. Personal belongings sent with patient. Report given to Ana CORMIER Appropriate documentation sent with patient.
[2022-06-15 21:25] LABS: Glucose Point of Care 153 mg/dl (65-105)
[2022-06-16] VITALS (13 sets, daily range): BP systolic 112–124; BP diastolic 48–76; PULSE 59–71; RESP 16–18; TEMP 36.3–37.3; O2SAT 94–100
[2022-06-16 04:51] LABS: Basophils Absolute Auto 0.1 K/mm3 (0.0-0.1); Basophils Percent Auto 1.1 % (0.2-1.2); Eosinophils Absolute Auto 0.1 K/mm3 (0-0.3); Eosinophils Percent Auto 2.1 % (0-4.4); Hematocrit 40.3 % (42.0-52.0); Hemoglobin 11.4 g/dL (14.0-18.0); Immature Granulocyte Absolute 0.01 K/mm3 (0.00-0.031); Immature Granulocyte Percent A 0.2 % (0-0.5); Lymphocytes Absolute Auto 1.36 K/mm3 (0.9-3.2); Lymphocytes Percent Auto 23.9 % (18.3-44.2); Mean Corpuscular HGB Conc 28.3 g/dl (32-36); Mean Corpuscular Volume 95.3 fl (80-100); Mean Platelet Volume 10.6 fl (7.4-10.4); Monocytes Absolute Auto 0.6 K/mm3 (0.1-0.6); Monocytes Percent Auto 9.6 % (2.6-8.5); Neutrophils Absolute Auto 3.6 K/mm3 (1.3-6.7); Neutrophils Percent Auto 63.1 % (45.5-73.1); Platelet Count Result 214 k/mm3 (150-375); Red Blood Count 4.23 M/mm3 (4.6-6.20); Red Cell Distribution Width 16.4 % (11.5-14.5); White Blood Count 5.7 K/mm3 (4.5-10.0)
[2022-06-16 05:38] LABS: Hypochromasia 1+ (NORMAL); Platelet Estimate Adequate (Adequate)
[2022-06-16 05:39] LABS: Poikilocytosis 1+ (NORMAL)
[2022-06-16] MEDS: ACETAMINOPHEN 500 MG TABLET 1000 MG PO ×3 (06:25→21:24)
[2022-06-16 08:21] LABS: Glucose Point of Care 115 mg/dl (65-105)
--- NOTE | 2022-06-16 08:22 | PM.PNORT ---
Progress Note: A&P Assessment and Plan (1) Right elbow pain: Code(s): M25.521 - Pain in right elbow Status: Acute Plan 87-year-old male with pain and swelling in his right elbow. Uric acid level is elevated. Most likely a gout flare. Would treat as such. Subjective Subjective Date/Time Seen: 06/16/22 08:22 Principal diagnosis: Dx: Right elbow pain Interval history: 87-year-old male with right elbow pain. Uric acid levels returned and is 10.8 which is high. Elbow is feeling better today. Exam Extrem: Other: Exam of Right elbow does show some irritability with range of motion. Mild effusion noted. Objective Data Vital Signs Vital Signs: Vital Signs - 24 hr 06/15/22 08:48 06/15/22 12:00 06/15/22 12:00 Temperature 97.7 F Pulse Rate 73 78 79 Respiratory Rate 20 Blood Pressure 108/53 L Pulse Oximetry 93 Oxygen Delivery Oxygen Flow Rate 06/15/22 15:56 06/15/22 16:00 06/15/22 20:00 Temperature 98.2 F 97.7 F Pulse Rate 70 79 70 Respiratory Rate 24 H 16 Blood Pressure 105/53 L 102/50 L Pulse Oximetry 95 96 Oxygen Delivery Oxygen Flow Rate 06/15/22 21:36 06/15/22 21:43 06/15/22 20:00 Temperature Pulse Rate 70 61 62 Respiratory Rate 27 H Blood Pressure Pulse Oximetry 94 Oxygen Delivery BiPAP Oxygen Flow Rate 06/15/22 20:00 06/16/22 00:00 06/16/22 00:00 Temperature 99.1 F Pulse Rate 63 60 Respiratory Rate 16 Blood Pressure 124/76 Pulse Oximetry 94 97 Oxygen Delivery Nasal Cannula Oxygen Flow Rate 5 06/16/22 04:00 06/16/22 04:00 Temperature 97.7 F Pulse Rate 66 60 Respiratory Rate 16 Blood Pressure 118/52 L Pulse Oximetry 99 Oxygen Delivery Oxygen Flow Rate Intake/Output Intake/Output: Intake & Output 06/13/22 06/14/22 06/15/22 06/16/22 23:59 23:59 23:59 23:59 Intake Total 710 / 710 900 / 900 1390 / 1390 Output Total 1650 / 1650 1310 / 1310 1600 / 1600 750 / 750 Balance -940 / -940 -410 / -410 -210 / -210 -750 / -750 Meds/Results Medications: Active Medications Generic Name Dose Route Start Last Admin Trade Name Bahmanq PRN Reason Stop Dose Admin Acetaminophen 1,000 mg 06/14/22 14:00 06/16/22 06:25 Acetaminophen 500 Mg Tablet PO 1,000 mg Q8H ARLEN Administration Apixaban 2.5 mg 06/08/22 21:00 06/15/22 21:36 Apixaban 2.5 Mg Tablet PO 2.5 mg Q12HR ARLEN Administration Carvedilol 6.25 mg 06/08/22 21:00 06/15/22 21:36 Carvedilol 6.25 Mg Tablet PO 6.25 mg Q12HR ARLEN Administration Cefdinir 300 mg 06/13/22 11:35 06/15/22 21:36 Cefdinir 300 Mg Capsule PO 300 mg Q12HR ARLEN Administration Dextrose 12.5 gm 06/08/22 15:15 Dextrose 50% 25 Gm/50 Ml Syringe IV PUSH PRN PRN Hypoglycemia Protocol Furosemide 80 mg 06/16/22 09:00 Furosemide 80 Mg Tablet PO QAM ARLEN Gabapentin 600 mg 06/08/22 17:00 06/15/22 16:30 Gabapentin 300 Mg Capsule PO 600 mg BID ARLEN Administration Glucagon 1 mg 06/08/22 15:15 Glucagon For Inj 1 Mg Vial IM PRN PRN Hypoglycemia Protocol Glucose 15 gm 06/08/22 15:15 Glucose Oral Gel 15 Gm Of Glucse In 37.5 Gm Tube PO PRN PRN Hypoglycemia Protocol Dextrose 1,000 mls @ 100 mls/hr 06/08/22 15:15 Dextrose 5% 1,000 Ml IVPB PRN PRN Hypoglycemia Protocol Insulin Aspart 2 - 5 units 06/08/22 17:00 06/15/22 16:26 Insulin Aspart (*Bkc) 100 Units/Ml SUB-Q Not Given TIDWM [facility] Protocol Ondansetron HCl 4 mg 06/08/22 10:44 Ondansetron Inj 4 Mg/2 Ml Vial IV PUSH Q4H PRN Nausea Oxycodone HCl 5 mg 06/14/22 14:03 06/15/22 00:21 Oxycodone Hcl (*Crx) 5 Mg Tab Ir PO 5 mg Q4H PRN Administration Pain Rated 7-10 Pantoprazole Sodium 40 mg 06/08/22 15:15 06/10/22 10:27 Pantoprazole 40 Mg Tablet PO 40 mg DAILY PRN Administration Acid Reflux Polyethylene Glycol 17 gm 06/12/22 09:00 06/15/22
[2022-06-16] MEDS: CEFDINIR 300 MG CAPSULE PO ×2 (08:40→20:23)
[2022-06-16] MEDS: GABAPENTIN 300 MG CAPSULE 600 MG PO ×2 (08:40→17:53)
[2022-06-16] MEDS: APIXABAN 2.5 MG TABLET PO ×2 (08:40→20:23)
[2022-06-16] MEDS: polyethylene glycoL 3350 17 GM POWD.PACK PO (08:41)
[2022-06-16] MEDS: FUROSEMIDE 80 MG TABLET PO (08:41)
[2022-06-16] MEDS: carvediloL 6.25 MG TABLET PO ×2 (08:44→20:23)
[2022-06-16 11:57] LABS: Glucose Point of Care 179 mg/dl (65-105)
--- NOTE | 2022-06-16 12:00 | PM.PNPUL ---
Progress Note: A&P Assessment and Plan (1) Acute exacerbation of CHF (congestive heart failure): Code(s): I50.9 - Heart failure, unspecified Status: Acute (2) Acute respiratory failure with hypoxia: Code(s): J96.01 - Acute respiratory failure with hypoxia Status: Acute Assessment and Plan: this 87-year-old man with a history of congestive heart failure, left ventricular diastolic dysfunction, history of atrial fibrillation,? history of a coronary artery bypass grafting, status post pacemaker implantation presented with a chronic shortness of breath, lower extremity edema,? acute on chronic hypercapnic respiratory failure.? Patient has been treated with diuretics for possible congestive heart failure.? He continues to have shortness of breath less than before.? Gas exchange has improved. ? previous chest CT showed bilateral centrilobular emphysema but pulmonary function testing done last summer showed restrictive pattern and no evidence of obstructive airway disease.? The patient's FEV1 was measured at 1.64L.? In addition he had decreased lung diffusion capacity at 47% predicted. ? The restrictive defect is in part explained by patient's suboptimal effort as shown by volume versus time tracing.? Patient has not been treated for COPD exacerbation.?Chest CT done yesterday showed centrilobular emphysema as before, no evidence of parenchymal lung disease such as congestion or interstitial lung disease, large pulmonary arteries suggestive of pulmonary hypertension. The patient's chronic hypercapnic respiratory failure is most likely related to obesity hypoventilation with chronic hypoxemia and development of pulmonary hypertension. patient seems to be tolerating BiPAP support last night he is now willing to continue with home ventilatory support. Plan: continue with same treatment. Patient will be started on AVAPS tonight, EPAP 8 cm, tidal volume 500, bleed in oxygen to maintain saturation over 92%. ApneaLink on those settings. (3) Acute on chronic diastolic congestive heart failure: Code(s): I50.33 - Acute on chronic diastolic (congestive) heart failure Status: Acute (4) Chronic atrial fibrillation: Code(s): I48.20 - Chronic atrial fibrillation, unspecified Status: Acute (5) Hypoxia: Code(s): R09.02 - Hypoxemia Status: Acute (6) Emphysema lung: Code(s): J43.9 - Emphysema, unspecified Status: Acute Subjective Date/time seen: 06/16/22 12:00 Interval history: Patient used BiPAP for few hours only last night. he has no new respiratory symptoms. Appears fully awake sitting in chair, on supplemental oxygen via nasal cannula Review of Systems Review of Systems: All systems reviewed & are unremarkable except as noted in HPI and below ( HPI and below.) Exam Narrative: GENERAL APPEARANCE: Well developed, well nourished, alert and cooperative, and appears to be in Mild respiratory distress while seated in chair and breathing supplemental oxygen via nasal cannula SKIN: Inspection of the skin reveals no rashes, ulcerations or petechiae. HEENT: Sclerae anicteric and conjunctivae pink and moist. Extraocular movements were intact and pupils were equal, round. oral mucosa dry, edentulous CHEST: Normal AP diameter and normal contour without any kyphoscoliosis. LUNGS: crackles at lung bases posteriorly no wheezing CARDIAC: There was a regular rate and rhythm without any murmurs. ABDOMEN: Soft and nontender with normal bowel sounds. There was no organomegaly. LYMPH NODES: No lymphadenopathy was appreciated in the neck EXTREMITIES: No cyanosis, clubbing 1+ pedal edema. NEUROLOGIC: Alert and oriented x 3. Normal affect. Objective Data Vital Signs Vital Signs: Vital Signs - 24 hr 06/15/22 15:56 06/15/22 16:00 06/15/22 20:00 Temperature 36.8 C 36.5 C Pulse Rate 70 79 70 Respiratory Rate 24 H 16 Blood Pressure 105/53 L 102/50 L Pulse Oximetry 95 96 Oxygen
--- NOTE | 2022-06-16 12:17 | PM.IMPN ---
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 Patient is requesting to try different sleeping pill to keep his BiPAP on. Will give a dose of Ativan tonight and assess response. Attempt to continue to wean oxygen, increased to 5L despite improving pulm congestion on CXR, likely needs BIPAP therapy intermediate, pulm consult appreciated, titrating BIPAP prior to d/c Will try scheduling trazodone tonight Will need BiPAP at home (2) Acute on chronic diastolic congestive heart failure: Code(s): I50.33 - Acute on chronic diastolic (congestive) heart failure Status: Acute Assessment and Plan: Much improved with increased diuresis and fluid restriction, CXR minimally improved from 06/13, continue fluid restriction and diuresis Echo showing EF 60-65% and Grade I diastolic dysfunction Creat/BUN are starting to climb, switch to po diuresis today and monitor response (3) Chest pressure: Code(s): R07.89 - Other chest pain Status: Acute Assessment and Plan: Resolved, likely secondary to heart failure exacerbation compounded by COPD and respiratory failure (4) Essential (primary) hypertension: Code(s): I10 - Essential (primary) hypertension Status: Acute Assessment and Plan: Stable, monitor (5) Chronic atrial fibrillation: Code(s): I48.20 - Chronic atrial fibrillation, unspecified Status: Acute Assessment and Plan: Rate controlled, continue Eliquis and Coreg Tachycardia resolved today (6) Type 2 diabetes mellitus with diabetic polyneuropathy: Code(s): E11.42 - Type 2 diabetes mellitus with diabetic polyneuropathy Status: Acute Assessment and Plan: A1c 9.0. Continue AccuCheks covering with sliding scale. Hypoglycemia protocol available as needed. Only on metformin at home. Continue to monitor. (7) Hyponatremia: Code(s): E87.1 - Hypo-osmolality and hyponatremia Status: Acute Assessment and Plan: Resolved, 139 on 06/14 (8) Neuropathy: Code(s): G62.9 - Polyneuropathy, unspecified Status: Acute Assessment and Plan: Acute on chronic neuropathy secondary to worsening edema, [place] as needed, much improved (9) UTI (urinary tract infection): Code(s): N39.0 - Urinary tract infection, site not specified Status: Acute Assessment and Plan: Resolving on Rocephin, culture positive for Klebsiella, will switch to cefdinir today to complete a total of 7 days, end date June 16 (10) Radial head fracture: Code(s): S52.123A - Displaced fracture of head of unspecified radius, initial encounter for closed fracture Status: Deleted Assessment and Plan: Appreciate orthopedic consultation, unsure of etiology to severe right upper extremity pain with inability to hold a coffee cup at this time Could be gout, do not suspect fracture per Orthopedic consultation, much improved today Plan DVT prophylaxis with Eliquis GI prophylaxis with PPI Code status DNR Subjective Date/time seen: 06/16/22 12:17 Interval history: Patient wore his BIPAP last night most of the night, he did not take his sleeping med. No overnight events, he is eager to go home. His right arm feels much better. Review of Systems Review of Systems: 12 point review of systems was assessed and was negative except as noted in the HPI Exam Narrative: General: No acute distress, resting on 4 L nasal cannula HEENT: Atraumatic, normocephalic, mucous
[2022-06-16 17:05] LABS: Glucose Point of Care 175 mg/dl (65-105)
[2022-06-16 18:10] LABS: Alanine Aminotransferase 15 U/L (6-50); Albumin Level 3.3 g/dL (3.5-5.1); Alkaline Phosphatase 90 U/L (38-126); Aspartate Amino Transferase 24 U/L (17-59); Bilirubin,Total 0.7 mg/dL (0.2-1.3); Blood Urea Nitrogen 29 mg/dL (9-20); Calcium 8.4 mg/dL (8.4-10.2); Carbon Dioxide > 40 mmol/L (22-30); Chloride 94 mmol/L (98-107); Estimated CRCL calculation 58 ml/min; Estimated Glomerular Filt Rate > 60; Glucose 180 mg/dL (65-110); Sodium 138 mmol/L (137-145)
[2022-06-16] MEDS: traZODone HCL 50 MG TABLET PO (20:23)
[2022-06-17] VITALS (15 sets, daily range): BP systolic 106–129; BP diastolic 44–59; PULSE 51–98; RESP 16–21; TEMP 36.4–36.7; O2SAT 92–100
[2022-06-17] MEDS: ACETAMINOPHEN 500 MG TABLET 1000 MG PO ×3 (06:10→21:02)
[2022-06-17 06:27] LABS: Alanine Aminotransferase 14 U/L (6-50); Albumin Level 3.2 g/dL (3.5-5.1); Alkaline Phosphatase 84 U/L (38-126); Aspartate Amino Transferase 25 U/L (17-59); Bilirubin,Total 0.7 mg/dL (0.2-1.3); Blood Urea Nitrogen 29 mg/dL (9-20); Calcium 8.4 mg/dL (8.4-10.2); Carbon Dioxide > 40 mmol/L (22-30); Chloride 94 mmol/L (98-107); Estimated CRCL calculation 58 ml/min; Estimated Glomerular Filt Rate > 60; Glucose 113 mg/dL (65-110); Potassium 3.8 mmol/L (3.4-5.0); Sodium 138 mmol/L (137-145)
[2022-06-17 06:47] LABS: Basophils Absolute Auto 0.1 K/mm3 (0.0-0.1); Basophils Percent Auto 1.3 % (0.2-1.2); Eosinophils Absolute Auto 0.2 K/mm3 (0-0.3); Eosinophils Percent Auto 2.8 % (0-4.4); Hematocrit 38.9 % (42.0-52.0); Immature Granulocyte Absolute 0.01 K/mm3 (0.00-0.031); Immature Granulocyte Percent A 0.2 % (0-0.5); Lymphocytes Absolute Auto 1.43 K/mm3 (0.9-3.2); Mean Corpuscular HGB Conc 28.3 g/dl (32-36); Mean Corpuscular Hemoglobin 27.4 pg (26-34); Mean Platelet Volume 10.8 fl (7.4-10.4); Monocytes Absolute Auto 0.5 K/mm3 (0.1-0.6); Monocytes Percent Auto 9.2 % (2.6-8.5); Neutrophils Absolute Auto 3.2 K/mm3 (1.3-6.7); Neutrophils Percent Auto 59.5 % (45.5-73.1); Platelet Count Result 226 k/mm3 (150-375); Red Blood Count 4.01 M/mm3 (4.6-6.20); Red Cell Distribution Width 16.6 % (11.5-14.5); White Blood Count 5.3 K/mm3 (4.5-10.0)
[2022-06-17 07:32] LABS: Anisocytosis 1+ (NORMAL); Platelet Estimate Adequate (Adequate); Schistocytes None Seen (NORMAL); Stomatocytes 2+ (NORMAL)
--- NOTE | 2022-06-17 08:23 | PM.DS ---
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 Patient received trazodone which seemed to help him keep his BIPAP on longer. Appreciate pulm consult, BIPAP being arranged for home (2) Acute on chronic diastolic congestive heart failure: Code(s): I50.33 - Acute on chronic diastolic (congestive) heart failure Status: Acute Assessment and Plan: Echo showing EF 60-65% and Grade I diastolic dysfunction Appears euvolemic on home diuretic (3) Chest pressure: Code(s): R07.89 - Other chest pain Status: Acute Assessment and Plan: Resolved, likely secondary to heart failure exacerbation compounded by COPD and respiratory failure (4) Essential (primary) hypertension: Code(s): I10 - Essential (primary) hypertension Status: Acute Assessment and Plan: Stable, monitor (5) Chronic atrial fibrillation: Code(s): I48.20 - Chronic atrial fibrillation, unspecified Status: Acute Assessment and Plan: Rate controlled, continue Eliquis and Coreg Tachycardia resolved (6) Type 2 diabetes mellitus with diabetic polyneuropathy: Code(s): E11.42 - Type 2 diabetes mellitus with diabetic polyneuropathy Status: Acute Assessment and Plan: A1c 9.0. Continue AccuCheks covering with sliding scale. Hypoglycemia protocol available as needed. Only on metformin at home. Continue to monitor. (7) Hyponatremia: Code(s): E87.1 - Hypo-osmolality and hyponatremia Status: Acute Assessment and Plan: Resolved (8) Neuropathy: Code(s): G62.9 - Polyneuropathy, unspecified Status: Acute Assessment and Plan: Acute on chronic neuropathy secondary to worsening edema, [place] as needed, much improved (9) UTI (urinary tract infection): Code(s): N39.0 - Urinary tract infection, site not specified Status: Acute Assessment and Plan: Resolving on Rocephin, culture positive for Klebsiella, will switch to cefdinir today to complete a total of 7 days, end date June 16 (10) Radial head fracture: Code(s): S52.123A - Displaced fracture of head of unspecified radius, initial encounter for closed fracture Status: Deleted Assessment and Plan: Appreciate orthopedic consultation, unsure of etiology to severe right upper extremity pain with inability to hold a coffee cup at this time Could be gout, do not suspect fracture per Orthopedic consultation, much improved today Plan DVT prophylaxis with Eliquis GI prophylaxis with PPI Code status DNR DS: Summary Hospital Course Hospital Course: 87-year-old male with past medical history significant for heart disease and diabetes presenting with shortness of breath and chest pressure. He was admitted for IV diuresis. Echo was ordered showing preserved ejection fraction, mild concentric LVH and mitral regurgitation without any other significant valvular abnormalities, no comment on diastolic dysfunction nor pulmonary hypertension was noted. Patient was noted to have hypercapnic respiratory failure likely secondary to obstructive sleep apnea. He was placed on BiPAP at night. IV diuresis was continued, likely due to mild diastolic heart failure underlying patient's symptoms. He remained in rate controlled AFib with Eliquis for stroke prophylaxis. Pulmonology consult recommended chest CT a continued BiPAP if
[2022-06-17] MEDS: APIXABAN 2.5 MG TABLET PO ×2 (08:28→21:02)
[2022-06-17] MEDS: polyethylene glycoL 3350 17 GM POWD.PACK PO (08:29)
[2022-06-17] MEDS: CEFDINIR 300 MG CAPSULE PO ×2 (08:29→21:02)
[2022-06-17] MEDS: GABAPENTIN 300 MG CAPSULE 600 MG PO ×2 (08:29→16:47)
[2022-06-17] MEDS: carvediloL 6.25 MG TABLET PO ×2 (08:29→21:02)
[2022-06-17] MEDS: FUROSEMIDE 80 MG TABLET PO (08:29)
[2022-06-17 08:31] LABS: Glucose Point of Care 117 mg/dl (65-105)
[2022-06-17 09:09] LABS: Alveolar/Arterial O2 Gradient 122.6 mmHg; Base Excess ABG 12.6 mEq/l (+/-2.0); Fractional Inspired Oxygen 40 %; HCO3 ABG 40.4 mEq/l (22.0-26.0); Oxygen Content ABG 16.6 %vol (16.0-22.0); Oxygen Saturation ABG 95.7 % (95.0-100.0); Oxyhemoglobin 94.7 % THb (90.0-100.0); PO2 ABG 83.6 mmHg (80.0-100.0); PO2 FiO2 Ratio Arterial Blood 2.09 %; Total Hemoglobin 12.4 g/dL (12.0-18.0); pH ABG 7.387 (7.350-7.450)
[2022-06-17 09:10] LABS: Modified Allen's Test Pass; PCO2 ABG 68.7 mmHg (35.0-45.0); Site Drawn LEFT RADIAL
[2022-06-17 09:11] LABS: Device NASAL CANNULA
--- NOTE | 2022-06-17 11:21 | PM.PNPUL ---
Progress Note: A&P Assessment and Plan (1) Obesity hypoventilation syndrome: Code(s): E66.2 - Morbid (severe) obesity with alveolar hypoventilation Status: Acute Assessment and Plan: this 87-year-old man with a history of congestive heart failure, left ventricular diastolic dysfunction, history of atrial fibrillation,? history of a coronary artery bypass grafting, status post pacemaker implantation presented with a chronic shortness of breath, lower extremity edema,? acute on chronic hypercapnic respiratory failure.? Patient has been treated with diuretics for possible congestive heart failure.? He continues to have shortness of breath less than before.? Gas exchange has improved. ? previous chest CT showed bilateral centrilobular emphysema but pulmonary function testing done last summer showed restrictive pattern and no evidence of obstructive airway disease.? The patient's FEV1 was measured at 1.64L.? In addition he had decreased lung diffusion capacity at 47% predicted. ? The restrictive defect is in part explained by patient's suboptimal effort as shown by volume versus time tracing.? Patient has not been treated for COPD exacerbation.?Chest CT done yesterday showed centrilobular emphysema as before, no evidence of parenchymal lung disease such as congestion or interstitial lung disease, large pulmonary arteries suggestive of pulmonary hypertension. The patient's chronic hypercapnic respiratory failure is most likely related to obesity hypoventilation with chronic hypoxemia and development of pulmonary hypertension. patient seems to be tolerating BiPAP support last night he is now willing to continue with home ventilatory support. The patient's admission blood gas was 7.31/75/290 on 10 L non-rebreather. Repeat blood gas on BiPAP 15/640% was 7.40/54/97. Patient's admission bicarbonate was 39. Patient's PFTs have moderate restriction with a moderately decreased DLCO that corrects for alveolar volume. TSH is normal at 0.72 on 06/08/2022. The patient has obesity hypoventilation syndrome. The patient would benefit from noninvasive ventilation and has done poorly on straight BiPAP with an inability to sleep adequately and would benefit from noninvasive ventilation with a trilogy and an AVAPS-AE mode to prevent further deterioration and subsequent hospitalizations. 06/16 Plan: continue with same treatment. Patient will be started on AVAPS tonight, EPAP 8 cm, tidal volume 500, bleed in oxygen to maintain saturation over 92%. ApneaLink on those settings. 06/17 patient wore BiPAP 12/6 and 45% FiO2 last night and said that he slept for approximately 4 hours with a sleeping aid (trazadone). Patient had an overnight oximetry on these settings with an average saturation of 97%, low saturation 81%, time with saturation less than or equal to 88% was 7 minutes and these desaturations all occurred at the very end of the night as 1 event. Overall 45% FiO2 (6 L equivaalent) is adequaate. Currently the patient states that he is breathing normal. From the urgent care nurse practitioner note on Friday he is being set up for a group home facility at [facility] and they can employ BiPAP but cannot employ noninvasive ventilation with a trilogy. Plan is to discharge him to [facility] with BiPAP while planning on a home trilogy when discharged from [facility]. I have initiated the process to obtain a home trilogy machine on [facility]. [place] I will place the patient on BiPAP 15/6 with a rate of 20 and 6 L bleed in and check a blood gas prior to removal. patient states his right arm is improved, he is on cefdinir for his Klebsiella UTI and being diuresed per hospitalist team. Will follow with you. Subjective Date/time seen: 06/17/22 11:21 Interval history: 06/14 new consult This 87-year-old man presented with progressively in
[2022-06-17 12:20] LABS: Glucose Point of Care 161 mg/dl (65-105)
--- NOTE | 2022-06-17 14:16 | PM.IMPN ---
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 Patient received trazodone which seemed to help him keep his BIPAP on longer. Appreciate pulm consult, BIPAP being arranged for home (2) Acute on chronic diastolic congestive heart failure: Code(s): I50.33 - Acute on chronic diastolic (congestive) heart failure Status: Acute Assessment and Plan: Echo showing EF 60-65% and Grade I diastolic dysfunction Appears euvolemic on home diuretic (3) Chest pressure: Code(s): R07.89 - Other chest pain Status: Acute Assessment and Plan: Resolved, likely secondary to heart failure exacerbation compounded by COPD and respiratory failure (4) Essential (primary) hypertension: Code(s): I10 - Essential (primary) hypertension Status: Acute Assessment and Plan: Stable, monitor (5) Chronic atrial fibrillation: Code(s): I48.20 - Chronic atrial fibrillation, unspecified Status: Acute Assessment and Plan: Rate controlled, continue Eliquis and Coreg Tachycardia resolved (6) Type 2 diabetes mellitus with diabetic polyneuropathy: Code(s): E11.42 - Type 2 diabetes mellitus with diabetic polyneuropathy Status: Acute Assessment and Plan: A1c 9.0. Continue AccuCheks covering with sliding scale. Hypoglycemia protocol available as needed. Only on metformin at home. Continue to monitor. (7) Hyponatremia: Code(s): E87.1 - Hypo-osmolality and hyponatremia Status: Acute Assessment and Plan: Resolved (8) Neuropathy: Code(s): G62.9 - Polyneuropathy, unspecified Status: Acute Assessment and Plan: Acute on chronic neuropathy secondary to worsening edema, [place] as needed, much improved (9) UTI (urinary tract infection): Code(s): N39.0 - Urinary tract infection, site not specified Status: Acute Assessment and Plan: Resolving on Rocephin, culture positive for Klebsiella, will switch to cefdinir today to complete a total of 7 days, end date June 16 (10) Radial head fracture: Code(s): S52.123A - Displaced fracture of head of unspecified radius, initial encounter for closed fracture Status: Deleted Assessment and Plan: Appreciate orthopedic consultation, unsure of etiology to severe right upper extremity pain with inability to hold a coffee cup at this time Could be gout, do not suspect fracture per Orthopedic consultation, much improved today Plan DVT prophylaxis with Eliquis GI prophylaxis with PPI Code status DNR Subjective Date/time seen: 06/17/22 14:16 Interval history: No overnight events noted. No chest pain or shortness of breath. No nausea, vomiting or diarrhea. No fevers or chills. He wore the BiPAP overnight and received his trazodone. His arm feels much better. Review of Systems Review of Systems: 12 point review of systems was assessed and was negative except as noted in the HPI Exam Narrative: General: No acute distress, resting on 4 L nasal cannula HEENT: Atraumatic, normocephalic, mucous membranes moist CV: Irregularly irregular, S1, S2, no murmur Lungs: Clear to auscultation bilaterally, somewhat diminished at bases Abdomen: Soft, nontender, nondistended Extremities: Trace pitting edema bilateral lower extremity, RUE with no TTP, no erythema, no warmth or edema noted Skin: No rashes noted, no lesions or wounds seen Objective Data Vital Signs Vital Signs: Vital Signs - 24 h
[2022-06-17 17:26] LABS: Glucose Point of Care 170 mg/dl (65-105)
[2022-06-17] MEDS: traZODone HCL 50 MG TABLET PO (21:02)
[2022-06-18] VITALS (7 sets, daily range): BP systolic 120–132; BP diastolic 55–65; PULSE 59–79; RESP 20–22; TEMP 36.3–36.7; O2SAT 92–99
[2022-06-18 05:01] LABS: Alveolar/Arterial O2 Gradient 148.1 mmHg; Base Excess ABG 9.7 mEq/l (+/-2.0); Device NON-INVASIVE VENT; Fractional Inspired Oxygen 45 %; HCO3 ABG 36.1 mEq/l (22.0-26.0); Modified Allen's Test Pass; Oxygen Content ABG 16.7 %vol (16.0-22.0); Oxygen Saturation ABG 97.8 % (95.0-100.0); Oxyhemoglobin 97.1 % THb (90.0-100.0); PCO2 ABG 57.8 mmHg (35.0-45.0); PO2 FiO2 Ratio Arterial Blood 2.38 %; Site Drawn RIGHT RADIAL; Total Hemoglobin 12.1 g/dL (12.0-18.0); pH ABG 7.414 (7.350-7.450)
[2022-06-18 05:02] LABS: Non-Invasive Expiratory Pressure 6 CMH2O; Non-Invasive Inspiratory Pressure 15 CMH2O; Non-Invasive Vent Rate 20 /MIN
[2022-06-18 05:46] LABS: Basophils Absolute Auto 0.1 K/mm3 (0.0-0.1); Eosinophils Absolute Auto 0.2 K/mm3 (0-0.3); Eosinophils Percent Auto 2.9 % (0-4.4); Hematocrit 37.2 % (42.0-52.0); Hemoglobin 10.6 g/dL (14.0-18.0); Immature Granulocyte Absolute 0.01 K/mm3 (0.00-0.031); Immature Granulocyte Percent A 0.2 % (0-0.5); Lymphocytes Absolute Auto 1.51 K/mm3 (0.9-3.2); Lymphocytes Percent Auto 29.7 % (18.3-44.2); Mean Corpuscular HGB Conc 28.5 g/dl (32-36); Mean Corpuscular Hemoglobin 26.5 pg (26-34); Mean Platelet Volume 10.6 fl (7.4-10.4); Monocytes Absolute Auto 0.5 K/mm3 (0.1-0.6); Monocytes Percent Auto 9.2 % (2.6-8.5); Neutrophils Absolute Auto 2.9 K/mm3 (1.3-6.7); Platelet Count Result 247 k/mm3 (150-375); Red Cell Distribution Width 16.5 % (11.5-14.5); White Blood Count 5.1 K/mm3 (4.5-10.0)
[2022-06-18 05:56] LABS: Alanine Aminotransferase 15 U/L (6-50); Albumin Level 3.4 g/dL (3.5-5.1); Alkaline Phosphatase 82 U/L (38-126); Anion Gap 2 mmol/L (8-16); Aspartate Amino Transferase 25 U/L (17-59); Bilirubin,Total 0.7 mg/dL (0.2-1.3); Blood Urea Nitrogen 31 mg/dL (9-20); Calcium 8.5 mg/dL (8.4-10.2); Carbon Dioxide 39 mmol/L (22-30); Chloride 94 mmol/L (98-107); Estimated CRCL calculation 58 ml/min; Estimated Glomerular Filt Rate > 60; Glucose 119 mg/dL (65-110); Potassium 3.8 mmol/L (3.4-5.0); Sodium 135 mmol/L (137-145)
[2022-06-18] MEDS: ACETAMINOPHEN 500 MG TABLET 1000 MG PO ×2 (06:10→13:41)
[2022-06-18] MEDS: polyethylene glycoL 3350 17 GM POWD.PACK PO (08:46)
[2022-06-18] MEDS: carvediloL 6.25 MG TABLET PO (08:47)
[2022-06-18] MEDS: CEFDINIR 300 MG CAPSULE PO (08:47)
[2022-06-18] MEDS: APIXABAN 2.5 MG TABLET PO (08:47)
[2022-06-18] MEDS: GABAPENTIN 300 MG CAPSULE 600 MG PO ×2 (08:47→16:42)
[2022-06-18] MEDS: FUROSEMIDE 80 MG TABLET PO (08:48)
[2022-06-18 08:49] LABS: Glucose Point of Care 106 mg/dl (65-105)
--- NOTE | 2022-06-18 08:57 | PM.PNPUL ---
Progress Note: A&P Assessment and Plan (1) Obesity hypoventilation syndrome: Code(s): E66.2 - Morbid (severe) obesity with alveolar hypoventilation Status: Acute Assessment and Plan: this 87-year-old man with a history of congestive heart failure, left ventricular diastolic dysfunction, history of atrial fibrillation,? history of a coronary artery bypass grafting, status post pacemaker implantation presented with a chronic shortness of breath, lower extremity edema,? acute on chronic hypercapnic respiratory failure.? Patient has been treated with diuretics for possible congestive heart failure.? He continues to have shortness of breath less than before.? Gas exchange has improved. ? previous chest CT showed bilateral centrilobular emphysema but pulmonary function testing done last summer showed restrictive pattern and no evidence of obstructive airway disease.? The patient's FEV1 was measured at 1.64L.? In addition he had decreased lung diffusion capacity at 47% predicted. ? The restrictive defect is in part explained by patient's suboptimal effort as shown by volume versus time tracing.? Patient has not been treated for COPD exacerbation.?Chest CT done yesterday showed centrilobular emphysema as before, no evidence of parenchymal lung disease such as congestion or interstitial lung disease, large pulmonary arteries suggestive of pulmonary hypertension. The patient's chronic hypercapnic respiratory failure is most likely related to obesity hypoventilation with chronic hypoxemia and development of pulmonary hypertension. patient seems to be tolerating BiPAP support last night he is now willing to continue with home ventilatory support. The patient's admission blood gas was 7.31/75/290 on 10 L non-rebreather. Repeat blood gas on BiPAP 15/640% was 7.40/54/97. Patient's admission bicarbonate was 39. Patient's PFTs have moderate restriction with a moderately decreased DLCO that corrects for alveolar volume. TSH is normal at 0.72 on 06/08/2022. The patient has obesity hypoventilation syndrome. The patient would benefit from noninvasive ventilation and has done poorly on straight BiPAP with an inability to sleep adequately and would benefit from noninvasive ventilation with a trilogy and an AVAPS-AE mode to prevent further deterioration and subsequent hospitalizations. 06/16 Plan: continue with same treatment. Patient will be started on AVAPS tonight, EPAP 8 cm, tidal volume 500, bleed in oxygen to maintain saturation over 92%. ApneaLink on those settings. 06/17 patient wore BiPAP 12/6 and 45% FiO2 last night and said that he slept for approximately 4 hours with a sleeping aid (trazadone). Patient had an overnight oximetry on these settings with an average saturation of 97%, low saturation 81%, time with saturation less than or equal to 88% was 7 minutes and these desaturations all occurred at the very end of the night as 1 event. Overall 45% FiO2 (6 L equivaalent) is adequaate. Currently the patient states that he is breathing normal. From the child care lead teacher note on Friday he is being set up for a retirement facility at [facility] and they can employ BiPAP but cannot employ noninvasive ventilation with a trilogy. Plan is to discharge him to [facility] with BiPAP while planning on a home trilogy when [facility]. I have initiated the process to obtain a home trilogy machine on discharge from [facility]. Marcela I will place the patient on BiPAP 15/6 with a rate of 20 and 6 L bleed in and check a blood gas prior to removal. patient states his right arm is improved, he is on cefdinir for his Klebsiella UTI and being diuresed per hospitalist team. 06/18 Patient wore BiPAP rate of 20, 15/6, and 45% FiO2 last night with a good blood gas prior to removal of 7.41/58/107. Patient said he was able to sleep with the ma
[2022-06-18 12:32] LABS: Glucose Point of Care 166 mg/dl (65-105)
[2022-06-18 15:31] LABS: EDCOVIDSCREEN Negative (Negative)
[2022-06-18 16:46] LABS: Glucose Point of Care 164 mg/dl (65-105)
== END 2022-06-18 17:55 | DRG 291 ==
LOC: ANHED 07:26 → ANH3MEDSUR 12:55 → ANH3MED 14:06 → ANHIMU 06-09 08:43 → ANH2MED 06-15 18:40
PROVIDERS: Emergency Medicine; Internal Medicine Critical Care Medicine; Internal Medicine Pulmonary Disease; Orthopaedic Surgery; Physician Assistant; Admitting Provider Internal Medicine; Emergency Provider Emergency Medicine; PCP Family Medicine Adolescent Medicine; Visit Provider Student in an Organized Health Care Education/Training Program
DX: I11.0 Hypertensive heart disease with heart failure (principal); I50.33 Acute on chronic diastolic (congestive) heart failure; J96.01 Acute respiratory failure with hypoxia; J96.22 Acute and chronic respiratory failure with hypercapnia; I48.20 Chronic atrial fibrillation, unspecified; I48.3 Typical atrial flutter; E87.1 Hypo-osmolality and hyponatremia; N39.0 Urinary tract infection, site not specified; M25.021 Hemarthrosis, right elbow; E66.2 Morbid (severe) obesity with alveolar hypoventilation; B96.1 Klebsiella pneumoniae [K. pneumoniae] as the cause of diseases classified elsewhere; E11.42 Type 2 diabetes mellitus with diabetic polyneuropathy; E11.51 Type 2 diabetes mellitus with diabetic peripheral angiopathy without gangrene; I49.5 Sick sinus syndrome; I71.40 Abdominal aortic aneurysm, without rupture, unspecified; I25.10 Atherosclerotic heart disease of native coronary artery without angina pectoris; I25.5 Ischemic cardiomyopathy; J43.2 Centrilobular emphysema; K21.9 Gastro-esophageal reflux disease without esophagitis; M10.9 Gout, unspecified; N40.0 Benign prostatic hyperplasia without lower urinary tract symptoms; Z20.822 Contact with and (suspected) exposure to COVID-19; Z98.41 Cataract extraction status, right eye; Z98.42 Cataract extraction status, left eye; Z95.1 Presence of aortocoronary bypass graft; Z95.0 Presence of cardiac pacemaker; Z87.891 Personal history of nicotine dependence; Z79.84 Long term (current) use of oral hypoglycemic drugs; Z91.14 Patient's other noncompliance with medication regimen; Z66 Do not resuscitate; Z68.32 Body mass index [BMI] 32.0-32.9, adult; Z86.73 Personal history of transient ischemic attack (TIA), and cerebral infarction without residual deficits; Z79.01 Long term (current) use of anticoagulants
CPT/HCPCS: 36415; 36600; 71045; 71046; 71250; 73080; 73100; 76775; 80048; 80053; 80069; 81001; 82375; 82805; 82948; 83036; 83050; 83605; 83735; 83880; 84100; 84145; 84443; 84484; 84550; 85025; 85027; 85610; 85730; 86140; 87077; 87086; 87186; 87426; 87636; 93005; 93970; 93976; 94002; 94003; 94660; 94762; 96374; 97110; 97161; 97165; 97530; 97535; 99285; A9270; C8929; C9803; J0696; J1120; J1815; J1940; Q9957

== ENCOUNTER 2022-09-13 13:16 | Outpatient (CLI) | payer MEDICARE, SELFPAY ==
[2022-09-13 14:43] LABS: Blood Urea Nitrogen 16 mg/dL (9-20); Calcium 8.5 mg/dL (8.4-10.2); Carbon Dioxide > 40 mmol/L (22-30); Chloride 92 mmol/L (98-107); Estimated Glomerular Filt Rate > 60; Glucose 96 mg/dL (65-110); Potassium 3.2 mmol/L (3.4-5.0); Sodium 140 mmol/L (137-145)
== END 2022-09-13 13:17 | disposition home or self-care (01) ==
LOC: ANHLAB 13:21
PROVIDERS: PCP Family Medicine Adolescent Medicine; Visit Provider Specialist
DX: I25.5 Ischemic cardiomyopathy (principal); R60.9 Edema, unspecified
CPT/HCPCS: 36415; 80048

== ENCOUNTER 2023-01-07 15:16 | Observation (INO) | payer MEDICARE, SELFPAY ==
[2023-01-07] VITALS (20 sets, daily range): BP systolic 93–123; BP diastolic 45–53; PULSE 50–79; RESP 12–22; TEMP 36.5–36.9; O2SAT 90–100; BMI 29.2; BMI 29.3
--- NOTE | ~2023-01-07 | XR_ITS ---
EXAMINATION: XR chest 2V DATE: 01/07/2023 16:39 INDICATION: Shortness of breath and lower limb swelling TECHNIQUE: AP and lateral views of the chest are obtained. COMPARISON: 06/13/2022 FINDINGS: Cardiomegaly is noted. There is a mild diffuse interstitial pattern. There are small pleura l effusions. No pneumothorax is identified. A dual-lead cardiac pacemaker of the left chest wall ends with leads in expected locations. Median sternotomy wires and mediastinal surgical clips are seen, l ikely from prior coronary artery bypass grafting. There is moderate thoracic spondylosis. IMPRESSION: 1. Cardiomegaly with moderate pulmonary edema. 2. Small pleural effusions. Reviewed, dictated and finalized at location A.
--- NOTE | ~2023-01-07 | XR_ITS ---
XR chest 2V 01/08/2023 11:01 Indication: CHF exacerbation Procedure: 2 view chest Comparison: Comparison to multiple prior studies sequentially, with oldest reviewed study dated 06/08. Findings: Status post median sternotomy for CABG. Cardiomegaly. Mild interstitial edema. There is rafiq cified granulomas in both lungs. No acute osseous abnormality. No significant effusion. No pneumothor ax. Impression: 1: Cardiomegaly with interstitial edema. Reviewed, dictated and finalized at location B. Impression: 1: Cardiomegaly with interstitial edema.
--- NOTE | 2023-01-07 15:55 | ECG_ITS ---
Measurements Intervals [place] Rate: 74 P: [place]: 0 QRS: -61 QRSD: 121 T: 39 QT: 400 QTc: 446 Interpretive Statements ATRIAL FIBRILLATION WITH ABERRANT CONDUCTION OR VENTRICULAR PREMATURE COMPLEXES MARKED LEFT AXIS DEVIATION [QRS AXIS < -30] RIGHT BUNDLE BRANCH BLOCK [120+ ms QRS DURATION, UPRIGHT V1, 40+ ms S IN I/aVL/V4/V5/V6] COMPARED TO ECG 06/09/2022 08:21:58 NO SIGNIFICANT CHANGES Electronically Signed On 01-08-2023 11:32:31 CDT by Rianna Limon M.D.
[2023-01-07 16:25] LABS: Basophils Absolute Auto 0.1 K/mm3 (0.0-0.1); Basophils Percent Auto 1.2 % (0.2-1.2); Eosinophils Absolute Auto 0.2 K/mm3 (0-0.3); Eosinophils Percent Auto 3.1 % (0-4.4); Hematocrit 30.3 % (42.0-52.0); Hemoglobin 8.5 g/dL (14.0-18.0); Immature Granulocyte Absolute 0.02 K/mm3 (0.00-0.031); Immature Granulocyte Percent A 0.3 % (0-0.5); Lymphocytes Absolute Auto 1.33 K/mm3 (0.9-3.2); Lymphocytes Percent Auto 19.8 % (18.3-44.2); Mean Corpuscular HGB Conc 28.1 g/dl (32-36); Mean Corpuscular Hemoglobin 27.7 pg (26-34); Mean Corpuscular Volume 98.7 fl (80-100); Monocytes Absolute Auto 0.7 K/mm3 (0.1-0.6); Neutrophils Absolute Auto 4.4 K/mm3 (1.3-6.7); Neutrophils Percent Auto 64.6 % (45.5-73.1); Platelet Count Result 221 k/mm3 (150-375); Red Blood Count 3.07 M/mm3 (4.6-6.20); Red Cell Distribution Width 16.1 % (11.5-14.5); White Blood Count 6.7 K/mm3 (4.5-10.0)
[2023-01-07 16:35] LABS: Anisocytosis 1+ (NORMAL); Hypochromasia 1+ (NORMAL); Platelet Estimate Adequate (Adequate)
[2023-01-07 16:36] LABS: INR 1.6; Prothrombin Time 20.1 Seconds (11.1-14.7); Schistocytes None Seen (NORMAL)
[2023-01-07 16:37] LABS: Partial Thromboplastin Time 37.5 SECONDS (22.3-36.8)
[2023-01-07 16:45] LABS: Alanine Aminotransferase 13 U/L (6-50); Albumin Level 3.5 g/dL (3.5-5.1); Alkaline Phosphatase 84 U/L (38-126); Aspartate Amino Transferase 19 U/L (17-59); Bilirubin,Total 0.8 mg/dL (0.2-1.3); Blood Urea Nitrogen 16 mg/dL (9-20); Carbon Dioxide > 40 mmol/L (22-30); Chloride 91 mmol/L (98-107); Estimated CRCL calculation 63 ml/min; Estimated Glomerular Filt Rate > 60; Glucose 128 mg/dL (65-110); Potassium 3.8 mmol/L (3.4-5.0); Sodium 136 mmol/L (137-145)
[2023-01-07 16:48] LABS: Troponin I < 0.012 ng/mL (0.000-0.034)
[2023-01-07 16:52] LABS: NT Pro B Type Natriuretic Pept 1490 pg/mL (19.9-100)
--- NOTE | 2023-01-07 19:44 | ED.EXTPRO ---
HPI - Extremity Problem General Chief complaint: Extremity Problem,Nontraumatic Stated complaint: leg swelling Time Seen by Provider: 01/07/23 18:57 History of Present Illness HPI Narrative: This is an 87-year-old male, with past history of coronary artery disease status post 5 vessel bypass, CHF, who presents the emergency department complaining of bilateral leg swelling for the past several days. The patient states he has been taking his diuretics regularly but continues to collect fluid. He has no other complaints at this time. Related Data Home Medications Medication Instructions Recorded Confirmed apixaban 2.5 mg tablet (Eliquis) 2.5 mg PO BID 01/07/22 01/07/23 furosemide 40 mg tablet 60 mg PO QAM 06/08/22 01/07/23 albuterol sulfate 90 mcg/actuation 1 puff inhalation Q4H PRN 11/12/22 01/07/23 aerosol inhaler Shortness Of Breath Or Wheezing Allergies Allergy/AdvReac Type Severity Reaction Status Date / Time levofloxacin Allergy Mild unknown Verified 01/07/23 15:55 Review of Systems Review of Systems: CONSTITUTIONAL: Denies fever, chills, or sweats. CARDIOVASCULAR: Bilateral lower extremity swelling denies chest pain, palpitations RESPIRATORY: Denies cough or dyspnea. GASTROINTESTINAL: Denies abdominal pain, nausea, vomiting, or diarrhea. GENITOURINARY: Denies dysuria or hematuria. SKIN: Denies rash or itching. MUSCULOSKELETAL: Denies back pain, joint pain, or myalgia. NEUROLOGIC: Denies headache, numbness, dizziness, or weakness. PSYCHIATRIC: Denies anxiety or depression. [facility] Past Medical History Medical History Abdominal aortic aneurysm Noted on CT in 01/2019. Abnormal pulmonary function test (11/2021) PFTs show mild restriction with decreased diffusion and suggestion of obstruction. the combination of restriction low DLCO can be seen in interstitial lung disease and pneumonitis and a combination of restriction, low DLCO, and obstruction can be seen heart failure, sarcoidosis, asbestosis. Study was not consistent with emphysema however restriction can be mass by obstruction. Aortic atherosclerosis Noted on CT in 01/2019. Benign prostatic hyperplasia Cerebrovascular accident No residual deficit. Chronic anticoagulation Chronic atrial fibrillation Coronary artery disease Status post five-vessel bypass. Diabetic peripheral neuropathy Diastolic congestive heart failure Gastroesophageal reflux disease History of peptic ulcer Ischemic cardiomyopathy Osteoarthritis Paroxysmal atrial flutter Peripheral vascular disease Renal artery stenosis Noted on CT in 01/2019. Sick sinus syndrome Status post permanent pacemaker insertion, Biotronik. Transient ischemic attack Type 2 diabetes mellitus Surgical History Surgical History History of bilateral cataract extraction History of five vessel coronary artery bypass (2007) History of inguinal hernia repair History of permanent cardiac pacemaker placement (2016) Family History Family History Other Congestive heart failure Diabetes mellitus Social History Social History Social History: Surrogate decision maker: Ewa Aguilar, . Code status: Full code. Smoking packs per day: 2 Smoking cigarettes per day: 40.0 Years smoked: 60 Smoking pack-years: 120.00 Smoking status: Former smoker Tobacco type: cigarettes Second hand tobacco smoke exposure: Yes Smoking end date: 05/19/69 Alcohol intake: never Substance use: never Substance use type: does not use Lack of Transportation: No Lack of Food: Never True Current Housing: I Have Housing Concerned About Future Housing: No Difficulty Paying Gas/Electric Bills: No Difficulty Paying for Meds: No Currently Unemployed: No Education: Grade School [employer]
--- NOTE | 2023-01-07 20:23 | PM.IMHP ---
H&P: HPI History of Present Illness Date/Time: 01/07/23 20:23 Chief Complaint: SOB Narrative: This is an 87-year-old male with past medical history significant for congestive heart failure, atrial fibrillation rate controlled anticoagulated, a type diabetes mellitus, patient is brought to the emergency room due to worsening shortness of breath, worsening bilateral lower extremity edema for the last several weeks. Patient denies any cough, sputum production, no chest pain, no syncope or near syncope, no lightheadedness, no palpitations. Preliminary workup was significant for chest x-ray with pulmonary edema and small pleural effusions, a BNP was 1490. Most of the history was obtained from who is at bedside states that patient has not been for feeling well for the last several weeks and noted worsening of bilateral lower extremity edema along with shortness of breath. Patient is been admitted for further evaluation management and treatment. EXAMINATION: XR chest 2V DATE: 01/07/2023 16:39 INDICATION: Shortness of breath and lower limb swelling TECHNIQUE: AP and lateral views of the chest are obtained. COMPARISON: 06/13/2022 FINDINGS: Cardiomegaly is noted. There is a mild diffuse interstitial pattern. There are small pleural effusions. No pneumothorax is identified. A dual-lead cardiac pacemaker of the left chest wall ends with leads in expected locations. Median sternotomy wires and mediastinal surgical clips are seen, likely from prior coronary artery bypass grafting. There is moderate thoracic spondylosis. IMPRESSION: 1. Cardiomegaly with moderate pulmonary edema. 2. Small pleural effusions. Review of Systems Review of Systems: Shortness of breath worsening bilateral lower extremity Constitutional: Constitutional: Denies chills, Denies fatigue and Denies fever(s) Eyes: Eyes: Denies change in vision ENT: Denies dysphagia, Denies vertigo and Denies dizziness Cardiovascular: Cardiovascular: Reports pedal edema, Reports leg edema, Denies radiating jaw, neck or arm pain, Denies palpitations, Reports dyspnea on exertion and Reports orthopnea Respiratory: Respiratory: Denies change in phlegm color and Denies cough Gastrointestinal: Gastrointestinal: Denies abdominal pain, Denies diarrhea, Denies nausea and Denies vomiting Genitourinary: Genitourinary: Denies dysuria Musculoskeletal: Musculoskeletal: Reports no additional musculoskeletal complaints and Reports as per HPI Integumentary/Breasts: Skin/Breast: Denies rash Neurologic: Denies focal weakness and Denies Sensory deficit (Neuro) Psychiatric: Psychiatric: Reports no additional psychiatric complaints and Reports as per HPI Endocrine: Endocrine: Denies cold intolerance, Denies deepening of the voice, Denies excessive sweating, Denies fatigue, Denies heat intolerance, Denies increase in ring/shoe/hat size, Denies polyphagia and Denies palpitations Hematologic/Lymphatic: Hematologic/Lymphatic: Reports no additional hematologic/lymphatic complaints and Reports as per HPI Allergic/Immunologic: Allergic/Immunologic: Reports no additional allergic/immunologic complaints and Reports as per HPI [facility] Past Medical History Medical History (Updated 01/09/23 @ 06:54 by Kash Naranjo MD) Abdominal aortic aneurysm Noted on CT in 01/2019. Abnormal pulmonary function test (11/2021) PFTs show mild restriction with decreased diffusion and suggestion of obstruction. the combination of restriction low DLCO can be seen in interstitial lung disease and pneumonitis and a combination of restriction, low DLCO, and obstruction can be seen heart failure, sarcoidosis, asbestosis. Study was not consistent with emphysema however restriction can be mass by obstruction. Aortic atherosclerosis Noted on CT in 01/2019. Benign prostatic hyperplasia Cerebrovascular accident No residual deficit. Chronic anticoagulation Chronic atrial fibrillation Diabetic peripheral neuropathy Di
[2023-01-07] MEDS: FUROSEMIDE INJ 40 MG/4 ML VIAL IV PUSH (20:33)
--- NOTE | 2023-01-07 20:57 | PC.NURSE ---
pt bedside glucose 105
[2023-01-07 21:44] LABS: Glucose Point of Care 77 mg/dl (65-105)
[2023-01-07 21:44] LABS: Glucose Point of Care 105 mg/dl (65-105)
[2023-01-07 22:34] LABS: Glucose Point of Care 117 mg/dl (65-105)
[2023-01-08] VITALS (12 sets, daily range): BP systolic 109–129; BP diastolic 40–64; PULSE 65–112; RESP 16–18; TEMP 36.5–37; O2SAT 92–98
--- NOTE | 2023-01-08 | ECHO_ITS ---
Patient Info Name: Stephanie Aguilar Age: 87 years : 1935 Gender: Male Ht: 72 in Wt: 216 lbs BSA: 2.25 m2 HR: 68 bpm BP: 129 / 64 mmHg Heart Rhythm: Atrial Fibrillation Technical Quality: Fair Exam Date: 01/08/2023 3:44 PM Exam Location: [facility] Room: [facility] Patient Status: Outpatient Admit Date: 01/07/2023 Staff Ordering Physician: Kash Naranjo MD Pipeline Maintenance Supervisor: Mili Posey RDCS Attending Provider: Kash Naranjo MD Referring Physician: Marcella MIRELES; Exam Type: CA echo dop color flow w con Study Info Indications - chf ppm cad cabg Complete two-dimensional, color flow and Doppler transthoracic echocardiogram is performed with contrast to opacify the left ventricle and to improve the deliniation of the left ventricle endocardial borders. Contrast/Agitated Saline Contrast/Ag. Saline: Definity Amount: 2.00 ml Administered By: Mili Posey [facility] Existing IV Access: Yes IV Access Condition: patent with no signs of infiltration Summary 1. Normal left ventricular size and thickness with good contractility of all segments. Ejection fraction is 60-65%. Grade 2 diastolic dysfunction is present. 2. Probable right ventricular enlargement; not well visualized. 3. Left atrial chamber dimension is moderately enlarged. 4. Right atrial chamber dimension is mildly enlarged. 5. There is mild tricuspid valve regurgitation. 6. There is mild pulmonic regurgitation. 7. Moderate pulmonary hypertension, estimated pulmonary arterial systolic pressure is 57 mmHg. 8. Dilated inferior vena cava with poor respiratory variation consistent with elevated right heart pressure. 9. Underlying rhythm appears to be atrial fibrillation. 10. Technically difficult study. Definity echo contrast used. Left Ventricle Left ventricular chamber dimension is normal. Left ventricular systolic function is normal, estimated at 60-65%. There is no increased left ventricular wall thickness. Left ventricular septal wall motion is normal. The left ventricular diastolic function is grade II diastolic dysfunction. Right Ventricle Right ventricular chamber dimension is mildly enlarged. Right ventricular systolic function is normal. Linear artifact in right ventricle suggestive of catheter(s), pacemaker lead(s), or ICD lead(s). Left Atria Left atrial chamber dimension is moderately enlarged. Right Atria Right atrial chamber dimension is mildly enlarged. Aortic Valve The aortic valve is trileaflet. There is mild aortic valve sclerosis. There is no aortic valve stenosis. There is no aortic valve regurgitation. Pulmonic Valve The pulmonic valve is normal. There is no pulmonic valve stenosis. There is mild pulmonic regurgitation. Mitral Valve The mitral valve has normal leaflets. There is no mitral valve stenosis. There is trace mitral valve regurgitation. Tricuspid Valve The tricuspid valve leaflets are normal. There is no significant tricuspid valve stenosis. There is mild tricuspid valve regurgitation. Moderate pulmonary hypertension, estimated pulmonary arterial systolic pressure is 57 mmHg. Pericardium/Pleural The pericardium appears normal. There is no pericardial effusion. Inferior Vena Cava Dilated inferior vena cava with <50% collapse upon inspiration consistent with Empty right atrial pressure, 10 mmHg. Aorta The aortic root size at the sinus of Valsalva is normal. The prox ascending aorta size is normal. The abdominal aorta size is not well visualized. Left Ventri
[2023-01-08 05:56] LABS: Basophils Absolute Auto 0.1 K/mm3 (0.0-0.1); Basophils Percent Auto 1.3 % (0.2-1.2); Eosinophils Absolute Auto 0.2 K/mm3 (0-0.3); Eosinophils Percent Auto 2.9 % (0-4.4); Hematocrit 30.1 % (42.0-52.0); Hemoglobin 8.8 g/dL (14.0-18.0); Immature Granulocyte Absolute 0.02 K/mm3 (0.00-0.031); Immature Granulocyte Percent A 0.3 % (0-0.5); Lymphocytes Absolute Auto 1.32 K/mm3 (0.9-3.2); Lymphocytes Percent Auto 20.9 % (18.3-44.2); Mean Corpuscular HGB Conc 29.2 g/dl (32-36); Mean Corpuscular Hemoglobin 27.6 pg (26-34); Mean Corpuscular Volume 94.4 fl (80-100); Mean Platelet Volume 9.8 fl (7.4-10.4); Monocytes Absolute Auto 0.7 K/mm3 (0.1-0.6); Monocytes Percent Auto 11.7 % (2.6-8.5); Neutrophils Percent Auto 62.9 % (45.5-73.1); Platelet Count Result 235 k/mm3 (150-375); Red Blood Count 3.19 M/mm3 (4.6-6.20); Red Cell Distribution Width 16.3 % (11.5-14.5); White Blood Count 6.3 K/mm3 (4.5-10.0)
[2023-01-08 06:22] LABS: Blood Urea Nitrogen 18 mg/dL (9-20); Calcium 8.2 mg/dL (8.4-10.2); Carbon Dioxide > 40 mmol/L (22-30); Chloride 91 mmol/L (98-107); Estimated CRCL calculation 57 ml/min; Estimated Glomerular Filt Rate > 60; Glucose 118 mg/dL (65-110); Potassium 3.7 mmol/L (3.4-5.0); Sodium 134 mmol/L (137-145)
[2023-01-08 07:02] LABS: Hypochromasia 1+ (NORMAL); Platelet Estimate Adequate (Adequate)
[2023-01-08 07:03] LABS: Anisocytosis 1+ (NORMAL); Schistocytes None Seen (NORMAL)
[2023-01-08 08:11] LABS: Glucose Point of Care 105 mg/dl (65-105)
[2023-01-08] MEDS: FUROSEMIDE INJ 40 MG/4 ML VIAL IV PUSH ×2 (09:28→17:47)
[2023-01-08] MEDS: GABAPENTIN 300 MG CAPSULE 600 MG PO ×2 (09:28→17:46)
[2023-01-08] MEDS: APIXABAN 2.5 MG TABLET PO ×2 (09:28→20:20)
[2023-01-08] MEDS: carvediloL 6.25 MG TABLET PO ×2 (09:29→20:20)
--- NOTE | 2023-01-08 11:29 | PM.IMPN ---
Progress Note: A&P Assessment and Plan (1) Acute exacerbation of CHF (congestive heart failure): Qualifiers: Heart failure type: unspecified Qualified Code(s): I50.9 - Heart failure, unspecified Code(s): I50.9 - Heart failure, unspecified Status: Acute Assessment and Plan: Cont IV diuresis Strict Is/Os, daily weights (2) Pulmonary edema: Qualifiers: Chronicity: acute Qualified Code(s): J81.0 - Acute pulmonary edema Code(s): J81.1 - Chronic pulmonary edema Status: Acute (3) Localized swelling of both lower extremities: Code(s): M79.89 - Other specified soft tissue disorders Status: Acute (4) Restrictive lung disease: Code(s): J98.4 - Other disorders of lung Status: Acute (5) Obesity hypoventilation syndrome: Code(s): E66.2 - Morbid (severe) obesity with alveolar hypoventilation Status: Acute (6) Acute on chronic diastolic congestive heart failure: Code(s): I50.33 - Acute on chronic diastolic (congestive) heart failure Status: Acute (7) Ischemic cardiomyopathy: Code(s): I25.5 - Ischemic cardiomyopathy Status: Acute (8) Chronic atrial fibrillation: Code(s): I48.20 - Chronic atrial fibrillation, unspecified Status: Acute (9) Presence of cardiac pacemaker: Code(s): Z95.0 - Presence of cardiac pacemaker Status: Acute (10) Gastro-esophageal reflux disease without esophagitis: Code(s): K21.9 - Gastro-esophageal reflux disease without esophagitis Status: Acute Plan DVT prophylaxis with eliquis GI prophylaxis not indicated Code status DNR Subjective Date/time seen: 01/08/23 11:29 Interval history: No overnight events noted. No chest pain or shortness of breath. No nausea, vomiting or diarrhea. No fevers or chills. He states he feels much better than yesterday. Review of Systems Review of Systems: 12 point review of systems was assessed and was negative except as noted in the HPI Exam Narrative: General: No acute distress, alert and oriented per baseline HEENT: Atraumatic, normocephalic, mucous membranes moist CV: Regular rate and rhythm, S1, S2 Lungs: Clear to auscultation bilaterally, no rales or crackles noted, no wheezes, good air entry Abdomen: Soft, nontender, nondistended Extremities: Normal to inspection, 2+ pitting edema Skin: No rashes noted, no lesions or wounds seen Psych: Euthymic, normal affect Objective Data Vital Signs Vital Signs: Vital Signs - 24 hr 01/07/23 15:50 01/07/23 18:48 01/07/23 18:53 Temperature 98.4 F Pulse Rate 72 56 L Respiratory Rate 22 H 14 Blood Pressure 93/45 L 117/53 L Pulse Oximetry 90 98 98 Oxygen Delivery Nasal Cannula Nasal Cannula Oxygen Flow Rate 3 3 01/07/23 18:54 01/07/23 19:00 01/07/23 19:02 Temperature Pulse Rate 56 L 76 70 Respiratory Rate 14 12 14 Blood Pressure 113/48 L Pulse Oximetry 100 100 Oxygen Delivery Oxygen Flow Rate 01/07/23 19:15 01/07/23 19:30 01/07/23 19:45 Temperature Pulse Rate 70 61 56 L Respiratory Rate 16 16 16 Blood Pressure Pulse Oximetry 97 Oxygen Delivery Oxygen Flow Rate 01/07/23 20:12 01/07/23 20:15 01/07/23 20:35 Temperature Pulse Rate 67 70 50 L Respiratory Rate 14 19 18 Blood Pressure 115/49 L Pulse Oximetry 100 Oxygen Delivery Oxygen Flow Rate 01/07/23 20:30 01/07/23 20:36 01/07/23 20:38 Temperature Pulse Rate 60 53 L 56 L Respiratory Rate 19 20 19 Blood Pressure 115/49 L 123/49 L Pulse Oximetry 100 Oxygen Delivery Oxygen Flow Rate 01/07/23 20:51 01/07/23 21:00 01/07/23 21:02 Temperature Pulse Rate 71 63 79 Respiratory Rate 17 16 16 Blood Pressure Pulse Oximetry Oxygen Delivery Oxygen Flow Rate 01/07/23 21:15 01/07/23 22:24 01/08/23 00:58 Temperature 97.7 F Pulse Rate 72 56 L Respiratory Rate 19 20 Blood
[2023-01-08 12:14] LABS: Glucose Point of Care 162 mg/dl (65-105)
[2023-01-08] MEDS: PERFLUTREN LIPID MICROSPHERES 1.5 ML VIAL DILUTED TO 10 ML TOTAL VOLUME IV PUSH (16:10)
--- NOTE | 2023-01-08 16:23 | IVDEFINITY ---
Prior to administration of IV Definity the patient was educated on the risks and benefits of the imaging enhancing agent including potential adverse side effects. The patient verbalized understanding. Allergies were verified. No exclusion criteria were identified and at least one of the following inclusion criteria were met: 1) physician request, 2) patient technically difficult to image (per the [employer]ocardi[employer] guidelines of two or more segments not discernable within the apical view), or 3) questionable left ventricular function. ?
[2023-01-08 17:03] LABS: Glucose Point of Care 151 mg/dl (65-105)
[2023-01-08] MEDS: INSULIN GLARGINE (*BKC) 100 UNITS/ML 14 UNITS SUB-Q (20:42)
[2023-01-08 20:59] LABS: Glucose Point of Care 150 mg/dl (65-105)
[2023-01-09] VITALS (7 sets, daily range): BP systolic 104–135; BP diastolic 56–60; PULSE 77–115; RESP 16–18; TEMP 36.2–37.8; O2SAT 93–98
[2023-01-09] MEDS: carvediloL 6.25 MG TABLET PO (09:47)
[2023-01-09] MEDS: FUROSEMIDE INJ 40 MG/4 ML VIAL IV PUSH (09:47)
[2023-01-09] MEDS: APIXABAN 2.5 MG TABLET PO (09:47)
[2023-01-09] MEDS: GABAPENTIN 300 MG CAPSULE 600 MG PO (09:47)
[2023-01-09 09:56] LABS: Glucose Point of Care 148 mg/dl (65-105)
[2023-01-09 11:57] LABS: Basophils Absolute Auto 0.1 K/mm3 (0.0-0.1); Basophils Percent Auto 0.5 % (0.2-1.2); Eosinophils Absolute Auto 0.1 K/mm3 (0-0.3); Eosinophils Percent Auto 1.1 % (0-4.4); Hematocrit 30.7 % (42.0-52.0); Hemoglobin 9.2 g/dL (14.0-18.0); Immature Granulocyte Absolute 0.02 K/mm3 (0.00-0.031); Immature Granulocyte Percent A 0.2 % (0-0.5); Lymphocytes Absolute Auto 1.16 K/mm3 (0.9-3.2); Lymphocytes Percent Auto 11.7 % (18.3-44.2); Mean Corpuscular Hemoglobin 27.5 pg (26-34); Mean Corpuscular Volume 91.6 fl (80-100); Mean Platelet Volume 9.9 fl (7.4-10.4); Monocytes Percent Auto 10.2 % (2.6-8.5); Neutrophils Absolute Auto 7.6 K/mm3 (1.3-6.7); Neutrophils Percent Auto 76.3 % (45.5-73.1); Platelet Count Result 236 k/mm3 (150-375); Red Blood Count 3.35 M/mm3 (4.6-6.20); Red Cell Distribution Width 16.6 % (11.5-14.5)
[2023-01-09 11:57] LABS: Glucose Point of Care 129 mg/dl (65-105)
[2023-01-09 12:09] LABS: Alanine Aminotransferase 11 U/L (6-50); Albumin Level 3.6 g/dL (3.5-5.1); Alkaline Phosphatase 78 U/L (38-126); Aspartate Amino Transferase 25 U/L (17-59); Bilirubin,Total 1.7 mg/dL (0.2-1.3); Blood Urea Nitrogen 18 mg/dL (9-20); Calcium 8.3 mg/dL (8.4-10.2); Carbon Dioxide > 40 mmol/L (22-30); Chloride 90 mmol/L (98-107); Estimated CRCL calculation 51 ml/min; Estimated Glomerular Filt Rate > 60; Glucose 127 mg/dL (65-110); Potassium 3.7 mmol/L (3.4-5.0); Sodium 129 mmol/L (137-145)
--- NOTE | 2023-01-09 14:37 | PM.DS ---
DS: Admitting Diagnosis Discharge Date 01/09/23 Admitting Diagnosis weakness DS: Discharge Diagnosis Discharge Diagnosis (1) Acute exacerbation of CHF (congestive heart failure): Qualifiers: Heart failure type: unspecified Qualified Code(s): I50.9 - Heart failure, unspecified Code(s): I50.9 - Heart failure, unspecified Status: Acute Assessment and Plan: Cont IV diuresis Strict Is/Os, daily weights (2) Pulmonary edema: Qualifiers: Chronicity: acute Qualified Code(s): J81.0 - Acute pulmonary edema Code(s): J81.1 - Chronic pulmonary edema Status: Acute (3) Localized swelling of both lower extremities: Code(s): M79.89 - Other specified soft tissue disorders Status: Acute (4) Restrictive lung disease: Code(s): J98.4 - Other disorders of lung Status: Acute (5) Obesity hypoventilation syndrome: Code(s): E66.2 - Morbid (severe) obesity with alveolar hypoventilation Status: Acute (6) Acute on chronic diastolic congestive heart failure: Code(s): I50.33 - Acute on chronic diastolic (congestive) heart failure Status: Resolved (7) Ischemic cardiomyopathy: Code(s): I25.5 - Ischemic cardiomyopathy Status: Acute (8) Chronic atrial fibrillation: Code(s): I48.20 - Chronic atrial fibrillation, unspecified Status: Acute (9) Presence of cardiac pacemaker: Code(s): Z95.0 - Presence of cardiac pacemaker Status: Acute (10) Gastro-esophageal reflux disease without esophagitis: Code(s): K21.9 - Gastro-esophageal reflux disease without esophagitis Status: Acute Plan DVT prophylaxis with eliquis GI prophylaxis not indicated Code status DNR DS: Summary Hospital Course Hospital Course: 87-year-old male with past medical history significant for congestive heart failure, atrial fibrillation rate controlled anticoagulated, a type diabetes mellitus, patient is brought to the emergency room due to worsening shortness of breath, worsening bilateral lower extremity edema for the last several weeks. Patient's symptoms improved with IV diuresis. He was transitioned to oral. Please see above and med rec for details. He was discharged in stable condition with close outpatient follow-up. Time Spent with Patient Time attestation: Total time spent providing and/or coordinating discharge services: Exam Narrative: General: No acute distress, alert and oriented per baseline HEENT: Atraumatic, normocephalic, mucous membranes moist CV: Regular rate and rhythm, S1, S2 Lungs: Clear to auscultation bilaterally, no rales or crackles noted, no wheezes, good air entry Abdomen: Soft, nontender, nondistended Extremities: Normal to inspection, 2+ pitting edema Skin: No rashes noted, no lesions or wounds seen Psych: Euthymic, normal affect DS: Data Data Completed and Pending Labs on day of discharge: Labs from last 24 hours 01/09/23 01/09/23 01/09/23 11:55 11:42 09:53 WBC 10.0 RBC 3.35 L Hgb 9.2 L Hct 30.7 L MCV 91.6 MCH 27.5 MCHC 30.0 L RDW 16.6 H Plt Count 236 MPV 9.9 Immature Gran % (Auto) 0.2 Neut % (Auto) 76.3 H Lymph % (Auto) 11.7 L Rush % (Auto) 10.2 H Eos % (Auto) 1.1 Baso % (Auto) 0.5 Lymph # (Auto) 1.16 Rush # (Auto) 1.0 H Eos # (Auto) 0.1 Baso # (Auto) 0.1 Abs Immat Gran (auto) 0.02 Absolute Neuts (auto) 7.6 H Absolute Nucleated RBC 0.0 Nucleated RBC % 0.0 Sodium 129 L Potassium 3.7 Chloride 90 L Carbon Dioxide > 40 H Anion Gap BUN 18 Creatinine 1.00 Estim Creat Clear Calc 51 Estimated GFR > 60 Glucose 127 H POC Capillary Glucose 129 H 148 H Calcium 8.3 L Total Bilirubin 1.7 H AST 25 ALT 11 Alkaline Phosphatase 78 Total Protein 8.0 Albumin 3.6 01/08/23 01/08/23 20:40 17:01 WBC RBC Hgb Hct M
== END 2023-01-09 15:34 | disposition home or self-care (01) ==
LOC: ANHED 20:31 → ANH3MED 01-09 09:39
PROVIDERS: Emergency Medicine; Admitting Provider Internal Medicine; Emergency Provider Preventive Medicine Aerospace Medicine; PCP Family Medicine Adolescent Medicine; Visit Provider Student in an Organized Health Care Education/Training Program
DX: I50.33 Acute on chronic diastolic (congestive) heart failure (principal); I25.10 Atherosclerotic heart disease of native coronary artery without angina pectoris; Z95.1 Presence of aortocoronary bypass graft; I45.10 Unspecified right bundle-branch block; I48.20 Chronic atrial fibrillation, unspecified; E11.42 Type 2 diabetes mellitus with diabetic polyneuropathy; K21.9 Gastro-esophageal reflux disease without esophagitis; I25.5 Ischemic cardiomyopathy; M19.90 Unspecified osteoarthritis, unspecified site; J81.0 Acute pulmonary edema; J98.4 Other disorders of lung; E87.1 Hypo-osmolality and hyponatremia; R79.81 Abnormal blood-gas level; E66.2 Morbid (severe) obesity with alveolar hypoventilation; Z68.29 Body mass index [BMI] 29.0-29.9, adult; E83.51 Hypocalcemia; R79.89 Other specified abnormal findings of blood chemistry; Z95.0 Presence of cardiac pacemaker; Z79.01 Long term (current) use of anticoagulants; Z79.51 Long term (current) use of inhaled steroids; Z79.84 Long term (current) use of oral hypoglycemic drugs; Z79.899 Other long term (current) drug therapy; Z87.891 Personal history of nicotine dependence; Z86.73 Personal history of transient ischemic attack (TIA), and cerebral infarction without residual deficits; Z82.49 Family history of ischemic heart disease and other diseases of the circulatory system; Z83.3 Family history of diabetes mellitus
CPT/HCPCS: 36415; 71046; 80048; 80053; 82948; 83880; 84484; 85025; 85610; 85730; 93005; 93306; 96374; 96375; 96376; 99285; A9270; C8929; G0378; J1815; J1940; Q9957

== ENCOUNTER 2023-01-16 14:44 | Inpatient (IN) | payer MEDICARE, SELFPAY ==
[2023-01-16] VITALS (13 sets, daily range): BP systolic 89–131; BP diastolic 44–70; PULSE 67–114; RESP 17–38; TEMP 36.4–37.2; O2SAT 95–100
--- NOTE | ~2023-01-16 | XR_ITS ---
EXAMINATION: XR chest 1V portable DATE: 01/16/2023 15:07 INDICATION: Shortness of breath. TECHNIQUE: A single frontal view of the chest was obtained. COMPARISON: Chest 2 views 01/08/2023, chest CT 06/14/2022, chest single view 06/13/2022 FINDINGS: There are lucencies in the lungs, consistent with emphysema. A calcified right lung nodule is consistent with old granulomatous disease. There are airspace and interstitial opacities in right mid and lower lung zones and all left lung zones. No pleural effusion or pneumothorax. Cardiomegaly i s noted. Median sternotomy wires and mediastinal surgical clips are seen, likely from prior coronary artery bypass grafting. There is a left chest wall pacer with leads in the right atrium and right cindy tricle. IMPRESSION: 1. Diffuse lung disease, consistent with pulmonary edema versus pneumonia superimposed on emphysema. 2. Cardiomegaly. Reviewed, dictated and finalized at location E. IMPRESSION: 1. Diffuse lung disease, consistent with pulmonary edema versus pneumonia super imposed on emphysema. 2. Cardiomegaly.
--- NOTE | ~2023-01-16 | XR_ITS ---
EXAMINATION: XR chest 1V portable INDICATION: Congestive heart failure TECHNIQUE: Portable AP chest at 0453 hours COMPARISON: 01/16/2023 FINDINGS: Cardiomegaly is noted. There is a mild diffuse interstitial pattern with slight worsening. A small left pleural effusion is present. There is no pneumothorax. Median sternotomy wires and media stinal surgical clips are seen, likely from prior coronary artery bypass grafting. A dual-lead cardia c pacemaker of the left chest wall ends with leads in expected locations. IMPRESSION: 1. Diffuse lung disease with interval worsening, consistent with pneumonia and/or pulmonary edema. 2. Cardiomegaly. Reviewed, dictated and finalized at location A. IMPRESSION: 1. Diffuse lung disease with interval worsening, consistent with pneumonia and/ or pulmonary edema. 2. Cardiomegaly.
--- NOTE | 2023-01-16 14:55 | ECG_ITS ---
Measurements Intervals [place] Rate: 114 P: [place]: 0 QRS: -69 QRSD: 132 T: 67 QT: 386 QTc: 532 Interpretive Statements ATRIAL FLUTTER/TACHYCARDIA WITH RAPID VENTRICULAR RESPONSE RIGHT BUNDLE BRANCH BLOCK LEFT ANTERIOR FASCICULAR BLOCK BASELINE WANDER- V2, V6 ABNORMAL ECG COMPARED TO ECG 01/07/2023 16:02:26 ATRIAL FLUTTER NOW PRESENT Electronically Signed On 01-17-2023 6:39:05 CDT by Pedro Flynn D.O.
[2023-01-16 15:13] LABS: Basophils Percent Auto 0.4 % (0.2-1.2); Eosinophils Percent Auto 0.1 % (0-4.4); Hematocrit 31.7 % (42.0-52.0); Immature Granulocyte Absolute 0.12 K/mm3 (0.00-0.031); Immature Granulocyte Percent A 1.1 % (0-0.5); Lymphocytes Absolute Auto 1.26 K/mm3 (0.9-3.2); Lymphocytes Percent Auto 11.5 % (18.3-44.2); Mean Corpuscular HGB Conc 28.4 g/dl (32-36); Mean Corpuscular Hemoglobin 27.3 pg (26-34); Mean Corpuscular Volume 96.1 fl (80-100); Mean Platelet Volume 10.9 fl (7.4-10.4); Monocytes Absolute Auto 1.2 K/mm3 (0.1-0.6); Neutrophils Absolute Auto 8.3 K/mm3 (1.3-6.7); Neutrophils Percent Auto 75.9 % (45.5-73.1); Platelet Count Result 268 k/mm3 (150-375); Red Cell Distribution Width 16.5 % (11.5-14.5)
[2023-01-16 15:15] LABS: Alveolar/Arterial O2 Gradient 505.3 mmHg; Base Excess ABG 11.2 mEq/l (+/-2.0); Carboxyhemoglobin 1.3 % THb (0-2.0); Fractional Inspired Oxygen 100 %; HCO3 ABG 34.3 mEq/l (22.0-26.0); Methemoglobin ABG 0.1 %THb (0-1.5); Oxygen Saturation ABG 99.3 % (95.0-100.0); Oxyhemoglobin 97.6 % THb (90.0-100.0); PCO2 ABG 39.3 mmHg (35.0-45.0); PO2 ABG 168.4 mmHg (80.0-100.0); PO2 FiO2 Ratio Arterial Blood 1.68 %; Total Hemoglobin 10.7 g/dL (12.0-18.0)
[2023-01-16 15:16] LABS: Device NON-REBREATHER MASK; Modified Allen's Test Pass; Site Drawn LEFT RADIAL; pH ABG 7.559 (7.350-7.450)
--- NOTE | 2023-01-16 15:21 | ED.SOB ---
HPI - SOB/Dyspnea General Chief Complaint: Shortness of Breath/Dyspnea Stated Complaint: CHF fluids build up, low O2 Time Seen by Provider: 01/16/23 15:02 History of Present Illness HPI Narrative: Patient is an 87-year-old male with a history of COPD, CHF presenting with shortness of breath. Patient's is at bedside and helps with the history. He was discharged from the hospital last week for CHF exacerbation. states that he has been increasingly short of breath for the last several days. She states that he did not take his Lasix yesterday. He has not been having any chest pain or lightheadedness. No vomiting or diarrhea. No fevers or chills. Does report worsening leg swelling. Related Data Home Medications Medication Instructions Recorded Confirmed apixaban 2.5 mg tablet (Eliquis) 2.5 mg PO BID 01/07/22 01/16/23 furosemide 40 mg tablet 60 mg PO QAM 06/08/22 01/16/23 albuterol sulfate 90 mcg/actuation 1 puff inhalation Q4H PRN 11/12/22 01/16/23 aerosol inhaler Shortness Of Breath Or Wheezing tiotropium bromide 2.5 2 inh inhalation DAILY 01/16/23 01/16/23 mcg/actuation mist for inhalation (Spiriva Respimat) umeclidinium 62.5 mcg-vilanterol 1 inh inhalation DAILY 01/16/23 01/16/23 25 mcg/actuation powdr for inhalation (Anoro Ellipta) Allergies Allergy/AdvReac Type Severity Reaction Status Date / Time levofloxacin Allergy Mild unknown Verified 01/14/23 12:44 Review of Systems Review of Systems: All systems reviewed & are unremarkable except as noted in HPI and below PMFSH Past Medical History Medical History Abdominal aortic aneurysm Noted on CT in 01/2019. Abnormal pulmonary function test (11/2021) PFTs show mild restriction with decreased diffusion and suggestion of obstruction. the combination of restriction low DLCO can be seen in interstitial lung disease and pneumonitis and a combination of restriction, low DLCO, and obstruction can be seen heart failure, sarcoidosis, asbestosis. Study was not consistent with emphysema however restriction can be mass by obstruction. Aortic atherosclerosis Noted on CT in 01/2019. Benign prostatic hyperplasia Cerebrovascular accident No residual deficit. Chronic anticoagulation Chronic atrial fibrillation Diabetic peripheral neuropathy Diastolic congestive heart failure Gastroesophageal reflux disease History of peptic ulcer Ischemic cardiomyopathy Osteoarthritis Paroxysmal atrial flutter Peripheral vascular disease Renal artery stenosis Noted on CT in 01/2019. Sick sinus syndrome Status post permanent pacemaker insertion, Biotronik. Transient ischemic attack Type 2 diabetes mellitus Surgical History Surgical History History of bilateral cataract extraction History of five vessel coronary artery bypass (2007) History of inguinal hernia repair History of permanent cardiac pacemaker placement (2016) Family History Family History Other Congestive heart failure Diabetes mellitus Social History Social History Social History: Surrogate decision maker: Ewa Aguilar, . Code status: Full code. Smoking packs per day: 2 Smoking cigarettes per day: 40.0 Years smoked: 60 Smoking pack-years: 120.00 Smoking status: Former smoker Tobacco type: cigarettes Second hand tobacco smoke exposure: Yes Smoking end date: 05/19/69 Alcohol intake: never Substance use: never Substance use type: does not use Lack of Transportation: No Lack of Food: Never True Current Housing: I Have Housing Concerned About Future Housing: No Difficulty Paying Gas/Electric Bills: No Difficulty Paying for Meds: No Currently Unemployed: No Education: Grade School Difficulty w/ Childcare or Family Care:
[2023-01-16] MEDS: IPRATROPIUM BR 0.02% INH SOLN 0.5 MG/2.5 ML VIAL INHALATION (15:25)
[2023-01-16] MEDS: ALBUTEROL SULFATE NEB 2.5 MG/3 ML INH 10 MG INHALATION (15:25)
[2023-01-16 15:28] LABS: Hypochromasia 1+ (NORMAL); Ovalocytes 1+ (NORMAL); Platelet Estimate Adequate (Adequate); Schistocytes None Seen (NORMAL)
[2023-01-16 15:39] LABS: Alanine Aminotransferase 17 U/L (6-50); Albumin Level 3.6 g/dL (3.5-5.1); Alkaline Phosphatase 78 U/L (38-126); Aspartate Amino Transferase 37 U/L (17-59); Bilirubin,Total 1.9 mg/dL (0.2-1.3); Blood Urea Nitrogen 32 mg/dL (9-20); Calcium 8.7 mg/dL (8.4-10.2); Carbon Dioxide > 40 mmol/L (22-30); Chloride 89 mmol/L (98-107); Estimated Glomerular Filt Rate > 60; Glucose 129 mg/dL (65-110); Potassium 3.6 mmol/L (3.4-5.0); Sodium 139 mmol/L (137-145)
[2023-01-16] MEDS: PIPERACILLN/TAZ 3.375GM/NS50ML 3.375 GM/50 ML BAG IVPB (15:42)
[2023-01-16 16:10] LABS: INR 2.2; Prothrombin Time 25.9 Seconds (11.1-14.7)
[2023-01-16 16:11] LABS: Partial Thromboplastin Time 38.4 SECONDS (22.3-36.8)
[2023-01-16] MEDS: SODIUM CHLORIDE 0.9% IV 1,000 ML 999 ML IV CONT (16:27)
[2023-01-16 16:30] LABS: NT Pro B Type Natriuretic Pept 3870 pg/mL (19.9-100); Troponin I 0.019 ng/mL (0.000-0.034)
[2023-01-16] MEDS: VANCOMYCIN 1,250 MG/NS 250 ML 1,250 MG/250 ML BAG 166.67 MG IVPB (16:47)
--- NOTE | 2023-01-16 16:48 | PC.NURSE ---
Pt was discharged on 01/09 for fluid overload and CHF. Home health suggested take pt to ED for low O2 sats in the 70 with hypotension.
[2023-01-16 18:08] LABS: Influenza A QL RT-PCR Negative (Negative); Influenza B QL RT-PCR Negative (Negative); SARS-CoV-2 RNA PCR Negative (Negative)
[2023-01-16] MEDS: VANCOMYCIN 1,000 MG/NS 250 ML 1,000 MG/250 ML BAG 250 MG IVPB (19:05)
--- NOTE | 2023-01-16 19:15 | PC.NURSE ---
This RN assumed care of patient. This RN took patient report from GENIA Eubanks.
[2023-01-16] MEDS: ALBUMIN HUMAN 25% 25 GM/100 ML 100 ML IVPB (19:29)
--- NOTE | 2023-01-16 20:59 | ADMGEN ---
2054 This patient, Stephanie Aguilar Jr., was admitted to IMU Room 232-01. Patient/family oriented to hospital policies and general routines including ID bracelet, bed and alarms, visiting hours, pain management, procedures, bathroom and other care routines, personal items, smoking policy, room service/diet, and visiting hours. Information on how to activate the Rapid Response Team has been discussed. Patient/Family are encouraged to report perceived risks to care and to ask questions if they do not understand what they are told or what they should do.
[2023-01-16 21:47] LABS: Troponin I 0.018 ng/mL (0.000-0.034)
--- NOTE | 2023-01-16 23:10 | PM.IMHP ---
H&P: HPI History of Present Illness Date/Time: 01/16/23 23:10 Chief Complaint: Dyspnea Narrative: Patient is an 87-year-old male with past medical history of COPD, CHF, BPH, CVA, sick sinus syndrome status post pacemaker, type 2 diabetes, paroxysmal atrial fibrillation on anticoagulation, ischemic cardiomyopathy, diastolic congestive heart failure presents the ED with complaints of dyspnea. Patient unable to provide any history due to medical status. Information gathered from chart review. Patient was recently hospitalized 01/07-01/09 for CHF exacerbation. He had missed a couple doses of Lasix recently. In the ED: ABG shows pH 7.55, pCO2 168 this was on non-rebreather, he was switched to BiPAP. Troponins negative, BNP 3870. WBC 11 K. chest x-ray consistent with pulmonary edema versus pneumonia diffuse lung disease. S patient is doing well with BiPAP we will continue overnight. Patient be admitted to IMU for further management of his CHF exacerbation. Review of Systems Review of Systems: Unable to obtain due to medical condition [facility] Past Medical History Medical History Abdominal aortic aneurysm Noted on CT in 01/2019. Abnormal pulmonary function test (11/2021) PFTs show mild restriction with decreased diffusion and suggestion of obstruction. the combination of restriction low DLCO can be seen in interstitial lung disease and pneumonitis and a combination of restriction, low DLCO, and obstruction can be seen heart failure, sarcoidosis, asbestosis. Study was not consistent with emphysema however restriction can be mass by obstruction. Aortic atherosclerosis Noted on CT in 01/2019. Benign prostatic hyperplasia Cerebrovascular accident No residual deficit. Chronic anticoagulation Chronic atrial fibrillation Diabetic peripheral neuropathy Diastolic congestive heart failure Gastroesophageal reflux disease History of peptic ulcer Ischemic cardiomyopathy Osteoarthritis Paroxysmal atrial flutter Peripheral vascular disease Renal artery stenosis Noted on CT in 01/2019. Sick sinus syndrome Status post permanent pacemaker insertion, Biotronik. Transient ischemic attack Type 2 diabetes mellitus Surgical History Surgical History History of bilateral cataract extraction History of five vessel coronary artery bypass (2007) History of inguinal hernia repair History of permanent cardiac pacemaker placement (2016) Family History Family History Other Congestive heart failure Diabetes mellitus Social History Social History Social History: Surrogate decision maker: Ewa Aguilar, . Code status: Full code. Smoking packs per day: 2 Smoking cigarettes per day: 40.0 Years smoked: 60 Smoking pack-years: 120.00 Smoking status: Former smoker Tobacco type: cigarettes Second hand tobacco smoke exposure: Yes Smoking end date: 05/19/69 Alcohol intake: never Substance use: never Substance use type: does not use Lack of Transportation: No Lack of Food: Never True Current Housing: I Have Housing Concerned About Future Housing: No Difficulty Paying Gas/Electric Bills: No Difficulty Paying for Meds: No Currently Unemployed: No Education: Grade School Difficulty w/ Childcare or Family Care: No Living arrangements: with family Additional living arrangements comments: The patient lives with his in [place]. Occupation/Education: retired Additional occupation/education comments: Retired. Spiritual care concerns: Yes Agree to blood products: Yes Meds Home Medications and Allergies Home Medications Medication Instructions Recorded Confirmed Type apixaban 2.5 mg tablet (Eliquis) 2.5 mg PO BID 01/07/22 01/16/23 History fortunato
[2023-01-17] VITALS (25 sets, daily range): BP systolic 103–129; BP diastolic 32–58; PULSE 66–91; RESP 20–30; TEMP 35.7–37.2; O2SAT 93–100; BMI 25.5
[2023-01-17] MEDS: MIRTAZAPINE 15 MG TABLET PO ×2 (01:35→20:34)
[2023-01-17] MEDS: APIXABAN 2.5 MG TABLET PO ×3 (01:35→16:51)
[2023-01-17] MEDS: carvediloL 6.25 MG TABLET PO ×3 (01:35→20:34)
[2023-01-17 05:59] LABS: Hemoglobin 8.5 g/dL (14.0-18.0); Mean Corpuscular HGB Conc 28.3 g/dl (32-36); Mean Corpuscular Volume 95.2 fl (80-100); Mean Platelet Volume 10.4 fl (7.4-10.4); Platelet Count Result 226 k/mm3 (150-375); Red Blood Count 3.15 M/mm3 (4.6-6.20); Red Cell Distribution Width 16.5 % (11.5-14.5); White Blood Count 7.4 K/mm3 (4.5-10.0)
[2023-01-17 06:10] LABS: Hemoglobin A1C 6.1 % (<5.7)
[2023-01-17 06:11] LABS: Alanine Aminotransferase 12 U/L (6-50); Albumin Level 2.9 g/dL (3.5-5.1); Alkaline Phosphatase 72 U/L (38-126); Aspartate Amino Transferase 28 U/L (17-59); Bilirubin,Total 1.5 mg/dL (0.2-1.3); Blood Urea Nitrogen 27 mg/dL (9-20); Calcium 7.7 mg/dL (8.4-10.2); Carbon Dioxide > 40 mmol/L (22-30); Chloride 93 mmol/L (98-107); Estimated Glomerular Filt Rate > 60; Glucose 82 mg/dL (65-110); Magnesium 1.8 mg/dL (1.6-2.3); Potassium 3.1 mmol/L (3.4-5.0); Sodium 140 mmol/L (137-145)
[2023-01-17 06:15] LABS: NT Pro B Type Natriuretic Pept 3420 pg/mL (19.9-100)
[2023-01-17 06:29] LABS: Procalcitonin 0.2 ng/mL
[2023-01-17 07:48] LABS: Glucose Point of Care 73 mg/dl (65-105)
[2023-01-17 08:37] LABS: Anisocytosis 1+ (NORMAL); Hypochromasia 1+ (NORMAL); Macrocytosis 1+ (NORMAL); Platelet Estimate Adequate (Adequate); Schistocytes None Seen (NORMAL)
[2023-01-17] MEDS: FUROSEMIDE INJ 40 MG/4 ML VIAL IV PUSH (09:47)
[2023-01-17 10:47] LABS: Glucose Point of Care 74 mg/dl (65-105)
[2023-01-17] MEDS: POTASSIUM CHLORIDE 20 MEQ ER TABLET 40 MEQ PO (12:22)
--- NOTE | 2023-01-17 12:35 | PM.IMPN ---
Progress Note: A&P Assessment and Plan (1) Acute exacerbation of CHF (congestive heart failure): Qualifiers: Heart failure type: unspecified Qualified Code(s): I50.9 - Heart failure, unspecified Code(s): I50.9 - Heart failure, unspecified Status: Acute Assessment and Plan: Patient was recently hospitalized for CHF exacerbation and was discharged on January 09 on lasix 60mg daily. Patient has missed doses of Lasix among other medications at home which is probably the reason for the recurrence of his acute on chronic diastolic CHF. Troponins negative x2. Echo 01/08 showing EF 60-65% with Grade II diastolic dysfunction, moderate pulm HTN and mild valve disease. Received 80mg IV lasix in ED and started on lasix 40mg IV daily. UOP 1350mL today. -will continue IV Lasix here 40mg IV daily, hold home Lasix p.o. -strict I&O, daily weight -repeat labs in AM -compliance was stressed (2) Acute and chronic respiratory failure: Code(s): J96.20 - Acute and chronic respiratory failure, unspecified whether with hypoxia or hypercapnia Status: Acute Assessment and Plan: Patient wears 3L O2 NC chronically. Patient presents with SOB and found to have CHF exacerbation. Influenza and COVID swabs were negative. ABG 7.56/39/168 on 10L. CXR showing diffuse lung disease. Patient required continuous BiPAP overnight. He tolerated this well. Currently off BiPAP. Wean BiPAP to be used at night and with naps. Continue BiPAP as needed. O2 weaned to 4 L. Continue to wean to baseline oxygen requirement. No wheezing so will hold DuoNebs at this time. Pneumonia seems to be less likely. Will stop vancomycin. Repeat chest x-ray in the morning. (3) Pulmonary hypertension: Code(s): I27.20 - Pulmonary hypertension, unspecified Status: Acute Assessment and Plan: Recent echocardiogram showing moderate pulmonary hypertension. Prior related to untreated sleep apnea. Continue supportive care. (4) Type 2 diabetes mellitus: Code(s): E11.9 - Type 2 diabetes mellitus without complications Status: Acute Assessment and Plan: A1c 6.1. The patient's blood glucose was reviewed on 01/17 Glucose remains well controlled. Continue AccuCheks covering with sliding scale. Hypoglycemia protocol available as needed. Continue current medications. (5) Chronic atrial fibrillation: Code(s): I48.20 - Chronic atrial fibrillation, unspecified Status: Acute Assessment and Plan: EKG showing AFlutter on admission. Rate controlled with Coreg. On Eliquis for stroke prophylaxis. (6) Chronic obstructive pulmonary disease: Code(s): J44.9 - Chronic obstructive pulmonary disease, unspecified Status: Inactive Assessment and Plan: Patient with COPD chronically. Resume Anoro Ellipta, Spiriva. Add nebs prn. Plan Diet: Heart healthy DVT prophylaxis: Eliquis Code status: DNR Disposition: May need SNF at discharge Subjective Date/time seen: 01/17/23 12:35 Interval history: 87yo male with CHF, DM and AFib here for shortness of breath. Feels better, No CP. No SOB. Slight nonproductive cough. states patient handles his medications usually but she noted that he had skipped some of his medications including Lasix. She will be managing his medications from now on. He does walk but too weak to walk recently. Exam Narrative: AF 97.7 112/53 66 22 94% 4L Gen - NARD Chest - few basilar rhonchi o/w clear, distant BS. CV - irregularly irregular. Tele showing AFib with controlled rate Abd - Soft, ND, +BS, mild diffuse tenderness without guarding or focal findings Ext - trace pedal edema. wrinkling to the LE Neuro - Alert, [place]. Feeding himself lunch Skin - Warm and dry Objective Data Vital Signs Vital Signs: Vital Signs - 24 hr 01/16/23 14:53 01/16/23 15:07 01/16/23 15:25 Temperature 99 F Pulse Rate 112 H 114 H Re
[2023-01-17 16:52] LABS: Glucose Point of Care 99 mg/dl (65-105)
[2023-01-17] MEDS: EUCERIN CREAM 120 GM JAR 1 APPLIC TOPICAL (16:55)
[2023-01-17 21:02] LABS: Glucose Point of Care 113 mg/dl (65-105)
[2023-01-18] VITALS (20 sets, daily range): BP systolic 123–148; BP diastolic 38–82; PULSE 64–108; RESP 18–32; TEMP 36.1–37.1; O2SAT 92–99
[2023-01-18 05:44] LABS: Basophils Percent Auto 0.6 % (0.2-1.2); Eosinophils Absolute Auto 0.1 K/mm3 (0-0.3); Eosinophils Percent Auto 1.2 % (0-4.4); Hematocrit 30.2 % (42.0-52.0); Hemoglobin 8.9 g/dL (14.0-18.0); Immature Granulocyte Absolute 0.07 K/mm3 (0.00-0.031); Lymphocytes Absolute Auto 1.44 K/mm3 (0.9-3.2); Lymphocytes Percent Auto 20.8 % (18.3-44.2); Mean Corpuscular HGB Conc 29.5 g/dl (32-36); Mean Corpuscular Hemoglobin 27.6 pg (26-34); Mean Corpuscular Volume 93.5 fl (80-100); Mean Platelet Volume 10.2 fl (7.4-10.4); Monocytes Absolute Auto 0.7 K/mm3 (0.1-0.6); Monocytes Percent Auto 10.3 % (2.6-8.5); Neutrophils Absolute Auto 4.6 K/mm3 (1.3-6.7); Neutrophils Percent Auto 66.1 % (45.5-73.1); Platelet Count Result 263 k/mm3 (150-375); Red Blood Count 3.23 M/mm3 (4.6-6.20); Red Cell Distribution Width 16.4 % (11.5-14.5); White Blood Count 6.9 K/mm3 (4.5-10.0)
[2023-01-18 06:05] LABS: Albumin Level 3.1 g/dL (3.5-5.1); Blood Urea Nitrogen 18 mg/dL (9-20); Calcium 7.9 mg/dL (8.4-10.2); Carbon Dioxide > 40 mmol/L (22-30); Chloride 90 mmol/L (98-107); Estimated CRCL calculation 72 ml/min; Estimated Glomerular Filt Rate > 60; Glucose 117 mg/dL (65-110); Magnesium 1.6 mg/dL (1.6-2.3); Phosphorus 1.3 mg/dL (2.5-4.5); Potassium 3.4 mmol/L (3.4-5.0); Sodium 136 mmol/L (137-145)
[2023-01-18 06:43] LABS: Hypochromasia 1+ (NORMAL); Platelet Estimate Adequate (Adequate)
[2023-01-18 06:44] LABS: Anisocytosis 1+ (NORMAL); Schistocytes None Seen (NORMAL)
[2023-01-18 07:38] LABS: Glucose Point of Care 111 mg/dl (65-105)
[2023-01-18] MEDS: carvediloL 6.25 MG TABLET PO ×2 (08:30→20:19)
[2023-01-18] MEDS: APIXABAN 2.5 MG TABLET PO ×2 (08:30→18:08)
[2023-01-18] MEDS: FUROSEMIDE INJ 40 MG/4 ML VIAL IV PUSH ×2 (08:31→18:09)
[2023-01-18] MEDS: EUCERIN CREAM 120 GM JAR 1 APPLIC TOPICAL ×2 (08:33→18:09)
[2023-01-18] MEDS: UMECLIDINIUM/VILANTEROL 62.5-25 MCG ELLIPTA 1 PUFF INHALATION (09:44)
[2023-01-18] MEDS: MAGNESIUM SULF 2 GM/WATER 50ML 2 GM/50 ML BAG IVPB (11:29)
[2023-01-18] MEDS: POTASSIUM CHLORIDE 20 MEQ ER TABLET 40 MEQ PO (11:29)
[2023-01-18] MEDS: POTASSIUM/PHOSPHORUS/SODIUM 1.5 GM PACKET 1 PACKET PO ×2 (11:29→18:09)
[2023-01-18 11:37] LABS: Glucose Point of Care 187 mg/dl (65-105)
[2023-01-18 16:37] LABS: Glucose Point of Care 173 mg/dl (65-105)
--- NOTE | 2023-01-18 19:19 | PM.IMPN ---
Progress Note: A&P Assessment and Plan (1) Acute exacerbation of CHF (congestive heart failure): Code(s): I50.9 - Heart failure, unspecified Status: Acute Assessment and Plan: Patient was recently hospitalized for CHF exacerbation and was discharged on January 09 on lasix 60mg daily. Patient has missed doses of Lasix among other medications at home which is probably the reason for the recurrence of his acute on chronic diastolic CHF. Troponins negative x2. Echo 01/08 showing EF 60-65% with Grade II diastolic dysfunction, moderate pulm HTN and mild valve disease. Received 80mg IV lasix in ED and started on lasix 40mg IV daily. UOP 1350mL yesterday and 1425 today but positive fluid balance. -will advance IV Lasix to 40mg IV BID -strict I&O, daily weight -repeat labs in AM -compliance was stressed -fluid restrict (2) Acute and chronic respiratory failure: Code(s): J96.20 - Acute and chronic respiratory failure, unspecified whether with hypoxia or hypercapnia Status: Acute Assessment and Plan: Patient wears 3L O2 NC chronically. Patient presents with SOB and found to have CHF exacerbation. Influenza and COVID swabs were negative. ABG 7.56/39/168 on 10L. CXR showing diffuse lung disease. Patient required continuous BiPAP overnight. He tolerated this well. Currently off BiPAP. Wean BiPAP to be used at night and with naps. Continue BiPAP as needed. O2 weaned to 4 L. Continue to wean to baseline oxygen requirement. Repeat chest x-ray in the morning. (3) Pulmonary hypertension: Code(s): I27.20 - Pulmonary hypertension, unspecified Status: Acute Assessment and Plan: Recent echo showing moderate pulmonary hypertension. Probably related to untreated sleep apnea. Continue supportive care. (4) Type 2 diabetes mellitus: Code(s): E11.9 - Type 2 diabetes mellitus without complications Status: Acute Assessment and Plan: A1c 6.1. The patient's blood glucose was reviewed on 01/18 Glucose remains well controlled. Continue AccuCheks covering with sliding scale. Hypoglycemia protocol available as needed. Continue current medications. (5) Chronic atrial fibrillation: Code(s): I48.20 - Chronic atrial fibrillation, unspecified Status: Acute Assessment and Plan: EKG showing AFlutter on admission. Rate controlled with Coreg. On Eliquis for stroke prophylaxis. (6) Chronic obstructive pulmonary disease: Code(s): J44.9 - Chronic obstructive pulmonary disease, unspecified Status: Inactive Assessment and Plan: Patient with COPD chronically. Continue Anoro Ellipta, Spiriva. Plan Diet: Heart healthy DVT prophylaxis: Eliquis Code status: DNR Disposition: May need SNF at discharge Subjective Date/time seen: 01/18/23 19:19 Interval history: 87yo male with CHF, DM and AFib here for shortness of breath. Patient denies chest pain but feels SOB. in the room and states patient walks with walker usually. Exam Narrative: AF 97.0 137/82 73 20 98% 4L Gen - NARD Chest - bibasilar inspiratory crackles. CV - irregularly irregular. Abd - Soft, obese, NT, +BS Ext - trace-1+ pedal edema. wrinkling to the LE Neuro - Alert, [place]. confused vs unable to hear Skin - Warm and dry Objective Data Vital Signs Vital Signs: Vital Signs - 24 hr 01/17/23 20:34 01/17/23 20:00 01/17/23 20:00 Temperature 98.9 F Pulse Rate 79 67 67 Respiratory Rate 20 20 Blood Pressure 119/45 L Pulse Oximetry 96 96 Oxygen Delivery Nasal Cannula Oxygen Flow Rate 4 Fraction of Inspired Oxygen 01/17/23 23:48 01/17/23 23:54 01/17/23 23:20 Temperature 97.7 F Pulse Rate 85 85 Respiratory Rate 20 20 23 H Blood Pressure 111/45 L Pulse Oximetry 93 93 94 Oxygen Delivery BiPAP BiPAP Oxygen Flow Rate Fraction of Inspired Oxygen 30 01/17/23 23:15 01/17/23 20:00 01/17/23 22:00 [place]
[2023-01-18] MEDS: MIRTAZAPINE 15 MG TABLET PO (20:19)
[2023-01-18 21:20] LABS: Glucose Point of Care 172 mg/dl (65-105)
[2023-01-18 22:11] LABS: Appearance Urine Clear (Clear); Bilirubin Urine Negative (Negative); Blood Urine Negative (Negative); Color Urine Yellow (Yellow); Glucose Urine UA Negative (Negative); Ketones Urine Negative (Negative); Leukocyte Esterase Ur Negative LEU/UL (Negative); Nitrate Urine Negative (Negative); Protein Urine Negative (Negative); Specific Grav Ur 1.006 (1.001-1.035); pH Urine 8.5 (5.0-9.0)
[2023-01-18 22:17] LABS: Add Urine Microscopic? NO
[2023-01-19] VITALS (19 sets, daily range): BP systolic 106–125; BP diastolic 47–62; PULSE 66–93; RESP 20–30; TEMP 35.8–36.7; O2SAT 93–99
[2023-01-19 04:51] LABS: Basophils Percent Auto 0.5 % (0.2-1.2); Eosinophils Absolute Auto 0.1 K/mm3 (0-0.3); Eosinophils Percent Auto 1.9 % (0-4.4); Hematocrit 29.5 % (42.0-52.0); Hemoglobin 8.8 g/dL (14.0-18.0); Immature Granulocyte Absolute 0.02 K/mm3 (0.00-0.031); Immature Granulocyte Percent A 0.3 % (0-0.5); Lymphocytes Absolute Auto 1.45 K/mm3 (0.9-3.2); Lymphocytes Percent Auto 24.6 % (18.3-44.2); Mean Corpuscular HGB Conc 29.8 g/dl (32-36); Mean Corpuscular Hemoglobin 27.4 pg (26-34); Mean Corpuscular Volume 91.9 fl (80-100); Mean Platelet Volume 10.2 fl (7.4-10.4); Monocytes Absolute Auto 0.6 K/mm3 (0.1-0.6); Monocytes Percent Auto 9.5 % (2.6-8.5); Neutrophils Absolute Auto 3.7 K/mm3 (1.3-6.7); Neutrophils Percent Auto 63.2 % (45.5-73.1); Platelet Count Result 284 k/mm3 (150-375); Red Blood Count 3.21 M/mm3 (4.6-6.20); Red Cell Distribution Width 17.2 % (11.5-14.5); White Blood Count 5.9 K/mm3 (4.5-10.0)
[2023-01-19 05:27] LABS: Hypochromasia 1+ (NORMAL); Ovalocytes 1+ (NORMAL); Platelet Estimate Adequate (Adequate)
[2023-01-19 05:28] LABS: Anisocytosis 1+ (NORMAL); Schistocytes Rare (NORMAL)
[2023-01-19 05:42] LABS: Alanine Aminotransferase 15 U/L (6-50); Alkaline Phosphatase 64 U/L (38-126); Aspartate Amino Transferase 30 U/L (17-59); Bilirubin,Total 1.2 mg/dL (0.2-1.3); Blood Urea Nitrogen 14 mg/dL (9-20); Calcium 7.8 mg/dL (8.4-10.2); Carbon Dioxide > 40 mmol/L (22-30); Chloride 93 mmol/L (98-107); Estimated CRCL calculation 63 ml/min; Estimated Glomerular Filt Rate > 60; Glucose 146 mg/dL (65-110); Phosphorus 2.6 mg/dL (2.5-4.5); Potassium 3.6 mmol/L (3.4-5.0); Sodium 140 mmol/L (137-145)
[2023-01-19 06:50] LABS: Folic Acid 9.4 ng/mL (2.76->20)
[2023-01-19 08:22] LABS: Glucose Point of Care 124 mg/dl (65-105)
[2023-01-19] MEDS: APIXABAN 2.5 MG TABLET PO ×2 (08:37→16:22)
[2023-01-19] MEDS: carvediloL 6.25 MG TABLET PO ×2 (08:37→21:33)
[2023-01-19] MEDS: FUROSEMIDE INJ 40 MG/4 ML VIAL IV PUSH ×2 (08:37→16:21)
[2023-01-19] MEDS: POTASSIUM CHLORIDE 20 MEQ ER TABLET 40 MEQ PO (08:43)
[2023-01-19] MEDS: EUCERIN CREAM 120 GM JAR 1 APPLIC TOPICAL ×2 (08:44→16:22)
[2023-01-19] MEDS: UMECLIDINIUM/VILANTEROL 62.5-25 MCG ELLIPTA 1 PUFF INHALATION (09:39)
--- NOTE | 2023-01-19 10:05 | PCRCNOTE ---
KATINA CANCELED PER DR. CASTILLO.
[2023-01-19] MEDS: acetaZOLAMIDE SODIUM FOR INJ 500 MG VIAL 250 MG IV PUSH (10:14)
--- NOTE | 2023-01-19 10:22 | PM.IMPN ---
Progress Note: A&P Assessment and Plan (1) Acute exacerbation of CHF (congestive heart failure): Code(s): I50.9 - Heart failure, unspecified Status: Acute Assessment and Plan: Patient was recently hospitalized for CHF exacerbation and was discharged on January 09 on lasix 60mg daily. Patient has missed doses of Lasix among other medications at home which is probably the reason for the recurrence of his acute on chronic diastolic CHF. Troponins negative x2. Echo 01/08 showing EF 60-65% with Grade II diastolic dysfunction, moderate pulm HTN and mild valve disease. Received 80mg IV lasix in ED and started on lasix 40mg IV daily. Had positive fluid balance so advance IV Lasix to 40mg IV BID CXR today reviewed personally showing worsening diffuse lung disease CXR looks worse but clincially better with decrease in O2 requirment. No fevers or elevated WBC to suggest PNA. Slight nonproductive cough noted. Will hold on abx -strict I&O, daily weight -repeat labs in AM -compliance was stressed -fluid restriction (2) Acute and chronic respiratory failure: Code(s): J96.20 - Acute and chronic respiratory failure, unspecified whether with hypoxia or hypercapnia Status: Acute Assessment and Plan: Patient wears 3L O2 NC chronically. Patient presents with SOB and found to have CHF exacerbation. Influenza and COVID swabs were negative. ABG 7.56/39/168 on 10L. CXR showing diffuse lung disease. Patient required continuous BiPAP initially. He tolerated this well. Currently off BiPAP. O2 weaned to baseline 3L. Continue BiPAP as needed. (3) Pulmonary hypertension: Code(s): I27.20 - Pulmonary hypertension, unspecified Status: Acute Assessment and Plan: Recent echo showing moderate pulmonary hypertension. Probably related to untreated sleep apnea. Continue supportive care. (4) Type 2 diabetes mellitus: Code(s): E11.9 - Type 2 diabetes mellitus without complications Status: Acute Assessment and Plan: A1c 6.1. The patient's blood glucose was reviewed on 01/19 Glucose remains reasonably well controlled. Continue AccuCheks covering with sliding scale. Hypoglycemia protocol available as needed. Continue current medications. (5) Chronic atrial fibrillation: Code(s): I48.20 - Chronic atrial fibrillation, unspecified Status: Acute Assessment and Plan: EKG showing AFlutter on admission. Rate controlled with Coreg. On Eliquis for stroke prophylaxis. (6) Chronic obstructive pulmonary disease: Code(s): J44.9 - Chronic obstructive pulmonary disease, unspecified Status: Inactive Assessment and Plan: Patient with COPD chronically. Continue Anoro Ellipta, Spiriva. Plan Diet: Heart healthy DVT prophylaxis: Eliquis Code status: DNR Disposition: May need SNF at discharge. PT/OT ordered Subjective Date/time seen: 01/19/23 10:22 Interval history: 87yo male with CHF, DM and AFib here for shortness of breath. Patietn is awake, alert and oriented. He denies feeling SOB. Has slight nonproductive cough. No CP. Weaned to 3L Exam Narrative: AF 96.9 125/59 88 20 95% 3L Gen - NARD HEENT - poor dentition with caries and broken teeth Chest - bibasilar inspiratory crackles. CV - irregularly irregular. Tele showing sinus rhythm with frequent PVCs Abd - Soft, obese, NT, +BS Ext - trace- pedal edema. wrinkling to the LE Neuro - Alert, [place]. Oriented x3 (not tra name) Skin - Warm and dry Objective Data Vital Signs Vital Signs: Vital Signs - 24 hr 01/18/23 10:38 01/18/23 12:36 01/18/23 12:00 Temperature 97.7 F Pulse Rate 108 H 96 90 Respiratory Rate 32 H 18 Blood Pressure 134/38 L Pulse Oximetry 92 95 Oxygen Delivery BiPAP Oxygen Flow Rate Fraction of Inspired Oxygen 01/18/23 12:00 01/18/23 14:00 01/18/23 14:23 Temperature Pulse Rate 86 Respiratory Rate Blood Pres
[2023-01-19] MEDS: WATER, STERILE FOR INJECTION 10 ML VIAL XX (11:42)
[2023-01-19 12:02] LABS: Glucose Point of Care 176 mg/dl (65-105)
[2023-01-19 16:41] LABS: Glucose Point of Care 157 mg/dl (65-105)
[2023-01-19 20:55] LABS: Glucose Point of Care 149 mg/dl (65-105)
[2023-01-19] MEDS: MIRTAZAPINE 15 MG TABLET PO (21:33)
[2023-01-20] VITALS (16 sets, daily range): BP systolic 92–135; BP diastolic 42–65; PULSE 62–94; RESP 18–30; TEMP 36–36.6; O2SAT 94–100
[2023-01-20 05:03] LABS: Basophils Percent Auto 0.7 % (0.2-1.2); Eosinophils Absolute Auto 0.2 K/mm3 (0-0.3); Eosinophils Percent Auto 3.1 % (0-4.4); Hematocrit 31.8 % (42.0-52.0); Hemoglobin 9.2 g/dL (14.0-18.0); Immature Granulocyte Absolute 0.03 K/mm3 (0.00-0.031); Immature Granulocyte Percent A 0.5 % (0-0.5); Lymphocytes Absolute Auto 1.57 K/mm3 (0.9-3.2); Lymphocytes Percent Auto 26.6 % (18.3-44.2); Mean Corpuscular HGB Conc 28.9 g/dl (32-36); Mean Corpuscular Hemoglobin 27.5 pg (26-34); Mean Corpuscular Volume 95.2 fl (80-100); Mean Platelet Volume 9.8 fl (7.4-10.4); Monocytes Absolute Auto 0.5 K/mm3 (0.1-0.6); Monocytes Percent Auto 9.2 % (2.6-8.5); Neutrophils Absolute Auto 3.5 K/mm3 (1.3-6.7); Neutrophils Percent Auto 59.9 % (45.5-73.1); Platelet Count Result 305 k/mm3 (150-375); Red Blood Count 3.34 M/mm3 (4.6-6.20); Red Cell Distribution Width 17.2 % (11.5-14.5); White Blood Count 5.9 K/mm3 (4.5-10.0)
[2023-01-20 05:16] LABS: Albumin Level 3.1 g/dL (3.5-5.1); Blood Urea Nitrogen 15 mg/dL (9-20); Calcium 8.1 mg/dL (8.4-10.2); Carbon Dioxide > 40 mmol/L (22-30); Chloride 97 mmol/L (98-107); Estimated CRCL calculation 57 ml/min; Estimated Glomerular Filt Rate > 60; Glucose 143 mg/dL (65-110); Magnesium 2.1 mg/dL (1.6-2.3); Phosphorus 3.6 mg/dL (2.5-4.5); Potassium 3.7 mmol/L (3.4-5.0); Sodium 140 mmol/L (137-145)
[2023-01-20] MEDS: UMECLIDINIUM/VILANTEROL 62.5-25 MCG ELLIPTA 1 PUFF INHALATION (09:07)
--- NOTE | 2023-01-20 09:09 | PM.IMPN ---
Progress Note: A&P Assessment and Plan (1) Acute exacerbation of CHF (congestive heart failure): Code(s): I50.9 - Heart failure, unspecified Status: Acute Assessment and Plan: Patient was recently hospitalized for CHF exacerbation and was discharged on January 09 on lasix 60mg daily. Patient has missed doses of Lasix among other medications at home which is probably the reason for the recurrence of his acute on chronic diastolic CHF. Troponins negative x2. Echo 01/08 showing EF 60-65% with Grade II diastolic dysfunction, moderate pulm HTN and mild valve disease. Received 80mg IV lasix in ED and started on lasix 40mg IV daily. Had positive fluid balance so advance IV Lasix to 40mg IV BID CXR repeated showing worsening diffuse lung disease CXR looks worse but clinically better with decrease in O2 requirement. No fevers or elevated WBC to suggest PNA. No cough. Will hold on abx -strict I&O, daily weight -repeat labs in AM -compliance was stressed -fluid restriction -change to oral Lasix (2) Acute and chronic respiratory failure: Code(s): J96.20 - Acute and chronic respiratory failure, unspecified whether with hypoxia or hypercapnia Status: Acute Assessment and Plan: Patient wears 3L O2 NC chronically. Patient presents with SOB and found to have CHF exacerbation. Influenza and COVID swabs were negative. ABG 7.56/39/168 on 10L. CXR showing diffuse lung disease. Patient required continuous BiPAP initially. He tolerated this well. Currently off BiPAP. O2 weaned to baseline 3L. Continue BiPAP as needed. Home O2 evaluation. Apnea link on 3L at night (3) Pulmonary hypertension: Code(s): I27.20 - Pulmonary hypertension, unspecified Status: Acute Assessment and Plan: Recent echo showing moderate pulmonary hypertension. Probably related to untreated sleep apnea? Continue supportive care. Check Apnea link. (4) Type 2 diabetes mellitus: Code(s): E11.9 - Type 2 diabetes mellitus without complications Status: Acute Assessment and Plan: A1c 6.1. The patient's blood glucose was reviewed on 01/20 Glucose remains reasonably well controlled. Continue AccuCheks covering with sliding scale. Hypoglycemia protocol available as needed. Continue current medications. (5) Chronic atrial fibrillation: Code(s): I48.20 - Chronic atrial fibrillation, unspecified Status: Acute Assessment and Plan: EKG showing AFlutter on admission. Rate controlled with Coreg. On Eliquis for stroke prophylaxis. (6) Chronic obstructive pulmonary disease: Code(s): J44.9 - Chronic obstructive pulmonary disease, unspecified Status: Inactive Assessment and Plan: Patient with COPD chronically. Continue Anoro Ellipta, Spiriva. Plan Diet: Heart healthy DVT prophylaxis: Eliquis Code status: DNR Disposition: May need SNF at discharge. PT/OT ordered Subjective Date/time seen: 01/20/23 09:09 Interval history: 87yo male with CHF, DM and AFib here for shortness of breath. Patient denies chest pain. Shortness of breath is better. He is tolerating BiPAP but does not want to wear this any more. He denies cough. His last bowel movement was 6 days ago. Exam Narrative: AF 97.0 105/49 62 26 94% 3L Gen - NARD HEENT - poor dentition with caries and broken teeth Chest - minimal basilar crackles with improved air exchange, nml RR CV - irregularly irregular. Tele showing probably AFib Abd - Soft, obese, NT, +BS Ext - trace- pedal edema. wrinkling skin to the LE Neuro - Alert, [place]. Able to scoot himself (with minimal assistance) to the side of the bed Skin - Warm and dry Objective Data Vital Signs Vital Signs: Vital Signs - 24 hr 01/19/23 09:39 01/19/23 10:00 01/19/23 10:00 Temperature Pulse Rate 91 Respiratory Rate Blood Pressure Pulse Oximetry 99 95 Oxygen Delivery Nasal Cannula Nasal Cannula
[2023-01-20 09:34] LABS: Glucose Point of Care 130 mg/dl (65-105)
[2023-01-20] MEDS: acetaZOLAMIDE SODIUM FOR INJ 500 MG VIAL 250 MG IV PUSH (10:14)
[2023-01-20] MEDS: APIXABAN 2.5 MG TABLET PO ×2 (10:15→16:47)
[2023-01-20] MEDS: carvediloL 6.25 MG TABLET PO ×2 (10:15→20:41)
[2023-01-20] MEDS: polyethylene glycoL 3350 17 GM POWD.PACK PO (10:16)
[2023-01-20] MEDS: EUCERIN CREAM 120 GM JAR 1 APPLIC TOPICAL ×2 (10:16→16:47)
[2023-01-20] MEDS: FUROSEMIDE INJ 40 MG/4 ML VIAL IV PUSH (10:20)
[2023-01-20 12:31] LABS: Glucose Point of Care 201 mg/dl (65-105)
[2023-01-20] MEDS: INSULIN ASPART (*BKC) 100 UNITS/ML SUB-Q (13:18)
[2023-01-20] MEDS: BISACODYL 10 MG SUPPOSITORY RECTAL (13:29)
[2023-01-20 16:45] LABS: Glucose Point of Care 154 mg/dl (65-105)
[2023-01-20] MEDS: FUROSEMIDE 40 MG TABLET PO (16:47)
[2023-01-20 20:37] LABS: Glucose Point of Care 165 mg/dl (65-105)
[2023-01-20] MEDS: MIRTAZAPINE 15 MG TABLET PO (20:41)
[2023-01-21] VITALS (13 sets, daily range): BP systolic 102–116; BP diastolic 49–73; PULSE 70–96; RESP 20–22; TEMP 36.1–36.7; O2SAT 93–99
--- NOTE | 2023-01-21 02:38 | PC.NURSE ---
Sputum specimen sent to lab
[2023-01-21 07:00] LABS: Anion Gap 4 mmol/L (8-16); Blood Urea Nitrogen 18 mg/dL (9-20); Calcium 8.1 mg/dL (8.4-10.2); Carbon Dioxide 31 mmol/L (22-30); Chloride 101 mmol/L (98-107); Estimated CRCL calculation 57 ml/min; Estimated Glomerular Filt Rate > 60; Glucose 116 mg/dL (65-110); Potassium 4.4 mmol/L (3.4-5.0); Sodium 136 mmol/L (137-145)
[2023-01-21 08:06] LABS: Glucose Point of Care 120 mg/dl (65-105)
[2023-01-21] MEDS: APIXABAN 2.5 MG TABLET PO ×2 (10:03→17:14)
[2023-01-21] MEDS: carvediloL 6.25 MG TABLET PO ×2 (10:03→20:25)
[2023-01-21] MEDS: FUROSEMIDE 40 MG TABLET PO ×2 (10:03→17:14)
[2023-01-21] MEDS: EUCERIN CREAM 120 GM JAR 1 APPLIC TOPICAL ×2 (10:04→17:15)
--- NOTE | 2023-01-21 10:12 | PM.IMPN ---
Progress Note: A&P Assessment and Plan (1) Acute exacerbation of CHF (congestive heart failure): Code(s): I50.9 - Heart failure, unspecified Status: Acute Assessment and Plan: Patient was recently hospitalized for CHF exacerbation and was discharged on January 09 on lasix 60mg daily. Patient has missed doses of Lasix among other medications at home which is probably the reason for the recurrence of his acute on chronic diastolic CHF. Troponins negative x2. Echo 01/08 showing EF 60-65% with Grade II diastolic dysfunction, moderate pulm HTN and mild valve disease. Received 80mg IV lasix in ED and started on lasix 40mg IV daily. Had positive fluid balance so advance IV Lasix to 40mg IV BID CXR repeated showing worsening diffuse lung disease CXR looked worse but clinically better with decrease in O2 requirement. No fevers or elevated WBC to suggest PNA. No cough. Abx held. Changed to oral Lasix. -strict I&O, daily weight -repeat labs in AM -compliance was stressed -fluid restriction -discharge when SNF bed available (2) Acute and chronic respiratory failure: Code(s): J96.20 - Acute and chronic respiratory failure, unspecified whether with hypoxia or hypercapnia Status: Acute Assessment and Plan: Patient wears 3L O2 NC chronically. Patient presents with SOB and found to have CHF exacerbation. Influenza and COVID swabs were negative. ABG 7.56/39/168 on 10L. CXR showing diffuse lung disease. Patient required continuous BiPAP initially. He tolerated this well. Currently off BiPAP and O2 weaned to baseline 3L. Apnea link showing normal AHI and RI at 6.5 (nml 5) on 3L. Spent only 10min(4%) with SpO2<88%. Continue O2 at 3L. (3) Pulmonary hypertension: Code(s): I27.20 - Pulmonary hypertension, unspecified Status: Acute Assessment and Plan: Recent echo showing moderate pulmonary hypertension. Continue supportive care. (4) Type 2 diabetes mellitus: Code(s): E11.9 - Type 2 diabetes mellitus without complications Status: Acute Assessment and Plan: A1c 6.1. The patient's blood glucose was reviewed on 01/21 Glucose remains reasonably well controlled. Continue AccuCheks covering with sliding scale. Hypoglycemia protocol available as needed. Continue current medications. (5) Chronic atrial fibrillation: Code(s): I48.20 - Chronic atrial fibrillation, unspecified Status: Acute Assessment and Plan: EKG showing AFlutter on admission. Rate controlled with Coreg. On Eliquis for stroke prophylaxis. (6) Chronic obstructive pulmonary disease: Code(s): J44.9 - Chronic obstructive pulmonary disease, unspecified Status: Inactive Assessment and Plan: Patient with COPD chronically. Continue Anoro Ellipta, Spiriva. Plan Diet: Heart healthy DVT prophylaxis: Eliquis Code status: DNR Disposition: SNF at discharge. PT/OT ordered Subjective Date/time seen: 01/21/23 10:12 Interval history: 87yo male with CHF, DM and AFib here for shortness of breath. Patient feels well today. No issues overnight. Spoke with patient about the need for SNF placement due to weakness. Took 2+ people to move him to chair today. Exam Narrative: AF 98.0 111/49 96 22 93% 3L Gen - NARD sitting up in a chair HEENT - poor dentition with caries and broken teeth Chest -distant but clear breath sounds. Normal respiratory rate. CV - irregularly irregular. Tele showing AFib with controlled rate Abd - Soft, obese, NT, +BS Ext - no signifincatl edema. wrinkling skin to the LE Neuro - Alert, [facility]. Skin - Warm and dry Objective Data Vital Signs Vital Signs: Vital Signs - 24 hr 01/20/23 10:15 01/20/23 12:00 01/20/23 12:00 Temperature Pulse Rate 89 90 Respiratory Rate Blood Pressure Pulse Oximetry Oxygen Delivery Room Air Oxygen Flow Rate Fraction of Inspired Oxygen 01/20/23 12:00
[2023-01-21 11:54] LABS: Glucose Point of Care 218 mg/dl (65-105)
[2023-01-21] MEDS: INSULIN ASPART (*BKC) 100 UNITS/ML SUB-Q (12:03)
--- NOTE | 2023-01-21 16:16 | PCRCNOTE ---
HOME O2 EVAL NOT NEEDED, PT DISCHARGING TO [facility]
[2023-01-21 16:20] LABS: Glucose Point of Care 180 mg/dl (65-105)
[2023-01-21] MEDS: MIRTAZAPINE 15 MG TABLET PO (20:26)
[2023-01-21 20:30] LABS: Glucose Point of Care 190 mg/dl (65-105)
[2023-01-22] VITALS (7 sets, daily range): BP systolic 94–106; BP diastolic 50–71; PULSE 63–107; RESP 20–22; TEMP 36.3–36.4; O2SAT 93–97
[2023-01-22 05:27] LABS: Anion Gap 7 mmol/L (8-16); Blood Urea Nitrogen 18 mg/dL (9-20); Calcium 8.3 mg/dL (8.4-10.2); Carbon Dioxide 35 mmol/L (22-30); Chloride 97 mmol/L (98-107); Estimated CRCL calculation 51 ml/min; Estimated Glomerular Filt Rate > 60; Glucose 118 mg/dL (65-110); Potassium 3.8 mmol/L (3.4-5.0); Sodium 139 mmol/L (137-145)
[2023-01-22 08:02] LABS: Glucose Point of Care 158 mg/dl (65-105)
[2023-01-22] MEDS: UMECLIDINIUM/VILANTEROL 62.5-25 MCG ELLIPTA 1 PUFF INHALATION (08:37)
[2023-01-22] MEDS: carvediloL 6.25 MG TABLET PO (08:43)
[2023-01-22] MEDS: APIXABAN 2.5 MG TABLET PO (08:43)
[2023-01-22] MEDS: FUROSEMIDE 40 MG TABLET PO (08:43)
[2023-01-22] MEDS: EUCERIN CREAM 120 GM JAR 1 APPLIC TOPICAL (08:44)
[2023-01-22] MEDS: polyethylene glycoL 3350 17 GM POWD.PACK PO (08:44)
--- NOTE | 2023-01-22 10:03 | PM.IMPN ---
Progress Note: A&P Assessment and Plan (1) Acute exacerbation of CHF (congestive heart failure): Code(s): I50.9 - Heart failure, unspecified Status: Acute Assessment and Plan: Patient was recently hospitalized for CHF exacerbation and was discharged on January 09 on lasix 60mg daily. Patient has missed doses of Lasix among other medications at home which is probably the reason for the recurrence of his acute on chronic diastolic CHF. Troponins negative x2. Echo 01/08 showing EF 60-65% with Grade II diastolic dysfunction, moderate pulm HTN and mild valve disease. Received 80mg IV lasix in ED and started on lasix 40mg IV daily. Had positive fluid balance so advance IV Lasix to 40mg IV BID CXR repeated showing worsening diffuse lung disease CXR looked worse but clinically better with decrease in O2 requirement. No fevers or elevated WBC to suggest PNA. No cough. Abx held. Changed to oral Lasix. -strict I&O, daily weight -repeat labs in AM -compliance was stressed -fluid restriction -discharge when SNF bed available Appears to be euvolemic at this time (2) Acute and chronic respiratory failure: Code(s): J96.20 - Acute and chronic respiratory failure, unspecified whether with hypoxia or hypercapnia Status: Acute Assessment and Plan: Patient wears 3L O2 NC chronically. Patient presents with SOB and found to have CHF exacerbation. Influenza and COVID swabs were negative. ABG 7.56/39/168 on 10L. CXR showing diffuse lung disease. Patient required continuous BiPAP initially. He tolerated this well. Currently off BiPAP and O2 weaned to baseline 3L. Apnea link showing normal AHI and RI at 6.5 (nml 5) on 3L. Spent only 10min(4%) with SpO2<88%. Continue O2 at 3L. (3) Pulmonary hypertension: Code(s): I27.20 - Pulmonary hypertension, unspecified Status: Acute Assessment and Plan: Recent echo showing moderate pulmonary hypertension. Continue supportive care. (4) Type 2 diabetes mellitus: Code(s): E11.9 - Type 2 diabetes mellitus without complications Status: Acute Assessment and Plan: A1c 6.1. The patient's blood glucose was reviewed on 01/21 Glucose remains reasonably well controlled. Continue AccuCheks covering with sliding scale. Hypoglycemia protocol available as needed. Continue current medications. (5) Chronic atrial fibrillation: Code(s): I48.20 - Chronic atrial fibrillation, unspecified Status: Acute Assessment and Plan: EKG showing AFlutter on admission. Rate controlled with Coreg. On Eliquis for stroke prophylaxis. (6) Chronic obstructive pulmonary disease: Code(s): J44.9 - Chronic obstructive pulmonary disease, unspecified Status: Inactive Assessment and Plan: Patient with COPD chronically. Continue Anoro Ellipta, Spiriva. Plan Diet: Heart healthy DVT prophylaxis: Eliquis Code status: DNR Disposition: SNF at discharge. PT/OT ordered Subjective Date/time seen: 01/22/23 10:03 Interval history: 87yo male with CHF, DM and AFib here for shortness of breath. No overnight events noted. No chest pain or shortness of breath. No nausea, vomiting or diarrhea. No fevers or chills. Patient eager to go to SNF. No symptoms. Review of Systems Review of Systems: 12 point review of systems was assessed and was negative except as noted in the HPI Exam Narrative: General: No acute distress, alert and oriented per baseline HEENT: Atraumatic, normocephalic, mucous membranes moist CV: Irregularly irregular, S1, S2 Lungs: Clear to auscultation bilaterally, no rales or crackles noted, no wheezes, good air entry Abdomen: Soft, nontender, nondistended Extremities: Normal to inspection, no edema Skin: No rashes noted, no lesions or wounds seen Psych: Euthymic, normal affect Objective Data Vital Signs Vital Signs: Vital Signs - 24 hr 01/21/23 12:00
--- NOTE | 2023-01-22 11:14 | PCNFU ---
Nutrition Follow-Up Complete: Inadequate Energy Intake as related to Bipap as evidenced by no po intake reported. Adequate Intake of at least 75% of meals/supplements - goal is being met Goal: Pt current nutrition is Heart healthy diet, 1200 ml/day fluid restriction. Intakes 90-100%. Ensure compact BID for additional 220 kcal and 9 g protein each. Nutrition recommendation: Continue with current nutrition care plan Last recorded weight is 91.6 kg. Bowel Motility: Last BM +1 01/21/23 Labs Reviewed: Glu 158, Alb 3.1 Meds Noted: Eliquis, Lasix, Miralax, mirtazipine Skin: WNL Additional Notes: Intakes are good. Rehab at discharge. Continue with current plan. Agree with orders RD will monitor weight, labs, skin, oral intake every 5 days.
[2023-01-22 12:34] LABS: Glucose Point of Care 181 mg/dl (65-105)
--- NOTE | 2023-01-22 14:11 | PM.DS ---
DS: Admitting Diagnosis Discharge Date 01/22/23 Admitting Diagnosis edema DS: Discharge Diagnosis Discharge Diagnosis (1) Acute exacerbation of CHF (congestive heart failure): Code(s): I50.9 - Heart failure, unspecified Status: Acute Assessment and Plan: Patient was recently hospitalized for CHF exacerbation and was discharged on January 09 on lasix 60mg daily. Patient has missed doses of Lasix among other medications at home which is probably the reason for the recurrence of his acute on chronic diastolic CHF. Troponins negative x2. Echo 01/08 showing EF 60-65% with Grade II diastolic dysfunction, moderate pulm HTN and mild valve disease. Received 80mg IV lasix in ED and started on lasix 40mg IV daily. Had positive fluid balance so advance IV Lasix to 40mg IV BID CXR repeated showing worsening diffuse lung disease CXR looked worse but clinically better with decrease in O2 requirement. No fevers or elevated WBC to suggest PNA. No cough. Abx held. Changed to oral Lasix. -strict I&O, daily weight -repeat labs in AM -compliance was stressed -fluid restriction -discharge when SNF bed available Appears to be euvolemic at this time (2) Acute and chronic respiratory failure: Code(s): J96.20 - Acute and chronic respiratory failure, unspecified whether with hypoxia or hypercapnia Status: Acute Assessment and Plan: Patient wears 3L O2 NC chronically. Patient presents with SOB and found to have CHF exacerbation. Influenza and COVID swabs were negative. ABG 7.56/39/168 on 10L. CXR showing diffuse lung disease. Patient required continuous BiPAP initially. He tolerated this well. Currently off BiPAP and O2 weaned to baseline 3L. Apnea link showing normal AHI and RI at 6.5 (nml 5) on 3L. Spent only 10min(4%) with SpO2<88%. Continue O2 at 3L. (3) Pulmonary hypertension: Code(s): I27.20 - Pulmonary hypertension, unspecified Status: Acute Assessment and Plan: Recent echo showing moderate pulmonary hypertension. Continue supportive care. (4) Type 2 diabetes mellitus: Code(s): E11.9 - Type 2 diabetes mellitus without complications Status: Acute Assessment and Plan: A1c 6.1. The patient's blood glucose was reviewed on 01/21 Glucose remains reasonably well controlled. Continue AccuCheks covering with sliding scale. Hypoglycemia protocol available as needed. Continue current medications. (5) Chronic atrial fibrillation: Code(s): I48.20 - Chronic atrial fibrillation, unspecified Status: Acute Assessment and Plan: EKG showing AFlutter on admission. Rate controlled with Coreg. On Eliquis for stroke prophylaxis. (6) Chronic obstructive pulmonary disease: Code(s): J44.9 - Chronic obstructive pulmonary disease, unspecified Status: Inactive Assessment and Plan: Patient with COPD chronically. Continue Anoro Ellipta, Spiriva. Plan Diet: Heart healthy DVT prophylaxis: Eliquis Code status: DNR Disposition: SNF at discharge. PT/OT ordered DS: Summary Hospital Course Hospital Course: 87yo male with CHF, DM and AFib here for shortness of breath. Patient feels well today.? No issues overnight. Spoke with patient about the need for SNF placement due to weakness. Took 2+ people to move him to chair today. Patient was recently hospitalized for CHF exacerbation and was discharged on January 09 on lasix 60mg daily. Patient has missed doses of Lasix among other medications at home which is probably the reason for the recurrence of his acute on chronic diastolic CHF.? Troponins negative x2. Echo 01/08 showing EF 60-65% with Grade II diastolic dysfunction, moderate pulm HTN and mild valve disease. ? Received 80mg IV lasix in ED and started on lasix 40mg IV daily. Had positive fluid balance so advance IV Lasix to 40mg IV BID CXR repeated showing worsening diffuse lung disease CXR looked worse but clinically better
== END 2023-01-22 17:47 | DRG 291 ==
LOC: ANHED 15:20 → ANHIMU 20:02
PROVIDERS: Internal Medicine; Student in an Organized Health Care Education/Training Program; Admitting Provider Student in an Organized Health Care Education/Training Program; Emergency Provider Emergency Medicine; PCP Family Medicine Adolescent Medicine; Visit Provider Student in an Organized Health Care Education/Training Program
DX: I50.33 Acute on chronic diastolic (congestive) heart failure (principal); J96.02 Acute respiratory failure with hypercapnia; J96.20 Acute and chronic respiratory failure, unspecified whether with hypoxia or hypercapnia; I48.20 Chronic atrial fibrillation, unspecified; E66.2 Morbid (severe) obesity with alveolar hypoventilation; E87.1 Hypo-osmolality and hyponatremia; I48.92 Unspecified atrial flutter; Z20.822 Contact with and (suspected) exposure to COVID-19; J44.9 Chronic obstructive pulmonary disease, unspecified; N40.0 Benign prostatic hyperplasia without lower urinary tract symptoms; E11.42 Type 2 diabetes mellitus with diabetic polyneuropathy; M19.90 Unspecified osteoarthritis, unspecified site; I70.1 Atherosclerosis of renal artery; I73.9 Peripheral vascular disease, unspecified; I70.0 Atherosclerosis of aorta; I71.40 Abdominal aortic aneurysm, without rupture, unspecified; E87.6 Hypokalemia; I27.20 Pulmonary hypertension, unspecified; F32.A Depression, unspecified; G47.30 Sleep apnea, unspecified; Z66 Do not resuscitate; Z91.148 Patient's other noncompliance with medication regimen for other reason; Z87.11 Personal history of peptic ulcer disease; Z95.0 Presence of cardiac pacemaker; Z79.01 Long term (current) use of anticoagulants; Z86.73 Personal history of transient ischemic attack (TIA), and cerebral infarction without residual deficits; Z98.42 Cataract extraction status, left eye; Z98.41 Cataract extraction status, right eye; Z95.1 Presence of aortocoronary bypass graft; Z87.891 Personal history of nicotine dependence; Z99.81 Dependence on supplemental oxygen
CPT/HCPCS: 36415; 36600; 71045; 80048; 80053; 80069; 81003; 82375; 82607; 82746; 82805; 82948; 83036; 83050; 83735; 83880; 84100; 84145; 84443; 84484; 85025; 85610; 85730; 87070; 87081; 87205; 87636; 93005; 94002; 94003; 94640; 94762; 96365; 96366; 96367; 96368; 97110; 97161; 97165; 97530; 97535; 99285; A9270; G0378; J1120; J1815; J1940; J2543; J3370; J3475; J7030; P9047

== ENCOUNTER 2023-03-31 14:28 | Emergency (ER) | payer MEDICARE, SELFPAY ==
--- NOTE | ~2023-03-31 | CT_ITS ---
EXAMINATION: CT brain wo con DATE: 03/31/2023 14:59 INDICATION: Head injury. Headache. TECHNIQUE: Computed tomography (CT) of the head was performed without intravenous contrast. The mA wa s adjusted according to patient size. Iterative reconstruction technique was employed. The dose-lengt h product was 681.00 mGy-cm. COMPARISON: Head CT 01/06/17 FINDINGS: There are old infarcts in the cerebellum bilaterally. There is an old infarct in right dorothy etal lobe. There is an old infarct in right frontal lobe. There is no intracranial hemorrhage, acute infarction, or abnormal intracranial mass lesion. The ventricles are normal in size. There is mucosal thickening in the paranasal sinuses. There are likely changes of ocular lens replacement surgeries. The mastoid air cells are normal. IMPRESSION: 1. 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 Reviewed, dictated and finalized at location A. [employer]UREMENT MANAGER IMPRESSION: 1. Old infarcts involving the right frontal and parietal lobes and the cerebell um.
--- NOTE | ~2023-03-31 | CT_ITS ---
EXAMINATION: CT cervical spine wo con DATE: 03/31/2023 14:59 INDICATION: Head injury. Neck pain. TECHNIQUE: Computed tomography (CT) of the cervical spine was performed without intravenous contrast. Automated exposure control and iterative reconstruction technique were employed. The dose-length pro duct was 498.02 mGy-cm. COMPARISON: None FINDINGS: Emphysema is noted. There is a small left pleural effusion. There is 2 mm anterolisthesis o f C7 on T1. There is 5 degrees levocurvature of cervical spine. Vertebral body heights are normal. Th ere is severely decreased disc height at C3-C4, moderately decreased disc height from C4-C5 through C 6-C7, and mildly decreased disc height at C7-T1. The following disc levels are specifically discussed : C2-C3: There is no uncovertebral joint osteoarthritis. 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 There is mild bilateral neural foraminal stenosis. There is no central canal stenosis. C3-C4: There is severe bilateral uncovertebral joint osteoarthritis. There is severe right and mild l eft facet joint osteoarthritis. There is mild bilateral neural foraminal stenosis. There is mild cent ral canal stenosis. C4-C5: There is severe bilateral uncovertebral joint osteoarthritis. There is moderate bilateral face t joint osteoarthritis. There is mild bilateral neural foraminal stenosis. There is mild central oscar l stenosis. C5-C6: There is mild right and severe left uncovertebral joint osteoarthritis. There is mild bilatera l facet joint osteoarthritis. There is mild left neural foraminal stenosis. There is mild central can al stenosis. C6-C7: There is severe right and moderate left uncovertebral joint osteoarthritis. There is mild righ t and moderate left facet joint osteoarthritis. There is mild bilateral neural foraminal stenosis. Th ere is mild central canal stenosis. C7-T1: There is no uncovertebral joint osteoarthritis. 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 There is mild bilateral neural foraminal stenosis. There is no central canal stenosis. IMPRESSION: 1. No fracture. 2. Severe cervical spondylosis. Reviewed, dictated and finalized at location A. ER TENDER
[2023-03-31 14:36] VITALS: BP 115/72; PULSE 75; RESP 18; TEMP 36.6; O2SAT 98
--- NOTE | 2023-03-31 14:40 | PC.NURSE ---
EDP made aware patient is moderate risk on CSS.
[2023-03-31 14:46] VITALS: BP 135/56; PULSE 68; RESP 21
--- NOTE | 2023-03-31 15:40 | ED.GENADULT ---
HPI - General Adult General Chief complaint: Fall Stated complaint: GLF, increased weakness Time Seen by Provider: 03/31/23 14:57 History of Present Illness HPI narrative: Patient is an 88-year-old male who presents ER after having a fall at home. He dropped an ice cube on the ground and thought that he may have slipped on it. He did strike his head but did not lose consciousness. He reports pain in his neck. He has no lacerations. Patient is anticoagulated on apixaban. reports patient has had 3 falls over the last couple months. She feels safe with him at home. Patient reports he is having pain in his neck at this time but attributes it to his cervical collar. Related Data Home Medications Medication Instructions Recorded Confirmed apixaban 2.5 mg tablet (Eliquis) 2.5 mg PO BID 01/07/22 02/24/23 albuterol sulfate 90 mcg/actuation 1 puff inhalation Q4H PRN 11/12/22 02/24/23 aerosol inhaler Shortness Of Breath Or Wheezing Allergies Allergy/AdvReac Type Severity Reaction Status Date / Time levofloxacin Allergy Mild unknown Verified 02/24/23 13:29 Review of Systems Review of Systems: All systems reviewed & are unremarkable except as noted in HPI and below Constitutional: Constitutional: Denies chills and Denies fever(s) Gastrointestinal: Gastrointestinal: Denies abdominal pain, Denies nausea and Denies vomiting Musculoskeletal: Musculoskeletal: Denies back pain and Denies arthralgias Comments: Chronic leg edema, positive neck pain. Neurologic: Denies headache(s), Denies focal weakness and Denies numbness Comments: Brief LOC [facility] Past Medical History Medical History Abdominal aortic aneurysm Noted on CT in 01/2019. Abnormal pulmonary function test (11/2021) PFTs show mild restriction with decreased diffusion and suggestion of obstruction. the combination of restriction low DLCO can be seen in interstitial lung disease and pneumonitis and a combination of restriction, low DLCO, and obstruction can be seen heart failure, sarcoidosis, asbestosis. Study was not consistent with emphysema however restriction can be mass by obstruction. Aortic atherosclerosis Noted on CT in 01/2019. Benign prostatic hyperplasia Cerebrovascular accident No residual deficit. Chronic anticoagulation Chronic atrial fibrillation Diabetic peripheral neuropathy Diastolic congestive heart failure Gastroesophageal reflux disease History of peptic ulcer Ischemic cardiomyopathy Osteoarthritis Paroxysmal atrial flutter Peripheral vascular disease Renal artery stenosis Noted on CT in 01/2019. Sick sinus syndrome Status post permanent pacemaker insertion, Biotronik. Transient ischemic attack Type 2 diabetes mellitus Surgical History Surgical History History of bilateral cataract extraction History of five vessel coronary artery bypass (2007) History of inguinal hernia repair History of permanent cardiac pacemaker placement (2016) Family History Family History Other Congestive heart failure Diabetes mellitus Social History Social History Social History: Surrogate decision maker: Ewa Aguilar, . Code status: Full code. Smoking packs per day: 2 Smoking cigarettes per day: 40.0 Years smoked: 60 Smoking pack-years: 120.00 Smoking status: Former smoker Tobacco type: cigarettes Second hand tobacco smoke exposure: Yes Smoking end date: 05/19/69 Alcohol intake: never Substance use: never Substance use type: does not use Lack of Transportation: No Lack of Food: Never True Current Housing: I Have Housing Concerned About Future Housing: No Difficulty Paying Gas/Electric Bills: No Difficulty Paying for Meds: No Currently Unemployed: No Edu
[2023-03-31 16:10] VITALS: BP 122/48; PULSE 74; RESP 19; O2SAT 92
== END 2023-03-31 16:14 | disposition home or self-care (01) ==
LOC: ANHED 15:55
PROVIDERS: Emergency Provider Emergency Medicine; PCP Family Medicine Adolescent Medicine
DX: S09.90XA Unspecified injury of head, initial encounter (principal); S19.9XXA Unspecified injury of neck, initial encounter; I70.0 Atherosclerosis of aorta; I48.20 Chronic atrial fibrillation, unspecified; I48.92 Unspecified atrial flutter; I50.30 Unspecified diastolic (congestive) heart failure; I25.5 Ischemic cardiomyopathy; I71.40 Abdominal aortic aneurysm, without rupture, unspecified; E11.42 Type 2 diabetes mellitus with diabetic polyneuropathy; E11.51 Type 2 diabetes mellitus with diabetic peripheral angiopathy without gangrene; I73.9 Peripheral vascular disease, unspecified; N40.0 Benign prostatic hyperplasia without lower urinary tract symptoms; K21.9 Gastro-esophageal reflux disease without esophagitis; M19.90 Unspecified osteoarthritis, unspecified site; Z95.0 Presence of cardiac pacemaker; Z95.1 Presence of aortocoronary bypass graft; Z98.42 Cataract extraction status, left eye; Z98.41 Cataract extraction status, right eye; Z86.73 Personal history of transient ischemic attack (TIA), and cerebral infarction without residual deficits; Z87.11 Personal history of peptic ulcer disease; Z87.891 Personal history of nicotine dependence; Z79.01 Long term (current) use of anticoagulants; Z79.84 Long term (current) use of oral hypoglycemic drugs; W01.0XXA Fall on same level from slipping, tripping and stumbling without subsequent striking against object, initial encounter; M47.812 Spondylosis without myelopathy or radiculopathy, cervical region
CPT/HCPCS: 70450; 72125; 99284; L0140